=== PATIENT | female | born 1930 | race Caucasian/White ===

== ENCOUNTER 2016-07-13 21:18 | Inpatient (IN) | payer OTHER, MEDICARE ==
[~2016-07-13] VITALS: Ht 157.5 cm; Wt 39.0 kg
[~2016-07-13 21:18] MED LIST: ADVAIR 250-501 EACH INH; ALBUTEROL 3 ML3 ML INH; ASPIRIN CHILDRE81 MG PO; ATORVASTATIN CA40 MG PO; CALCIUM + D 6001 TAB PO; DILTIAZEM HCL240 MG PO; HYDRODIURIL 2525 MG PO; LEVOFLOXACIN500 MG PO; POTASSIUM CHLO10 ME1 PO; PREDNISONE5 MG PO; PRINIVIL 5MG5 MG PO; PROAIR HFA0.09 MG/Ac PO; SPIRIVA 18 MCG18 MCG INH
--- NOTE | 2016-07-13 21:30 | NUR ---
PT BIBA FROM HOME WITH C/O OF INCREASING DIFFICULTY BREATHING. PT HAS A HX OF COPD AND USES 3L NORMALLY. PT HAD A SAT OF 84% UPON EMS ARRIVAL, RECEIVED A DUO NEB AND 125MG SOLUMEDROL AND SATS UP TO 93-95% UPON ARRIVAL TO ER. PT NOTED WITH DIMINISHED LUNG SOUNDS. STATES THAT SHE HAS BEEN FIGHTING A SINUS INFECTION AND HEAD COLD FOR THE PAST 3 DAYS, AND SHE THINKS THAT THIS IS MAKING HER COPD WORSE. PT DENIES ANY CP. NSR NOTED ON CM.
--- NOTE | 2016-07-13 21:52 | ED DYSPNEA/ASTHMA COMPLAINT ---
History of Present Illness General Chief Complaint: Dyspnea (COPD, CHF, Other) Stated Complaint: "BIBA PER EMS SHORTNESS BREATH' Source: patient Exam Limitations: no limitations Vital Signs & Intake/Output Vital Signs & Intake/Output Vital Signs Date Time Temp Pulse Resp B/P Pulse O2 O2 Flow FiO2 Ox Delivery Rate 07/14 0310 Nasal 3.0L Cannula 07/14 0252 97.5 93 20 110/68 94 Nasal 3.0L Cannula 07/14 0223 95.7 91 18 133/58 99 Nasal 3.0L Cannula 07/13 2236 93 Nasal 3.0L Cannula 07/131 94 Nasal 3.0L Cannula 07/13 2124 99.1 112 22 176/96 95 Nasal 3.0L Cannula Allergies Coded Allergies: codeine (NAUSEA 07/13/16) oxycodone (From Percocet) (NAUSEA 07/13/16) propoxyphene (NAUSEA 07/13/16) Opioids - Morphine Analogues (Mild, NAUSEA 07/13/16) Reconcile Medications Albuterol Sulfate (Proventil) 2.5 MG/3 ML NEB 3 ML INH Q4P PRN SHORTNESS OF BREATH (Reported) Albuterol Sulfate (Proair Hfa) 0.09 MG/Actuation ASHLEY 1-2 PUFF PO Q4-6 PRN PRN BREATHING PROBLEMS (Reported) Aspirin (Children's Aspirin) 81 MG TAB.CHEW 1 TAB PO DAILY HEART HEALTH ( Reported) Atorvastatin Calcium (Lipitor) 40 MG TABLET 1 TAB PO DAILY CHOLESTEROL ( Reported) Calcium/Vitamin D (Calcium + D) 600 MG/200 IU TAB 1 TAB PO BID SUPPLEMENT ( Reported) Cefprozil 250 MG TABLET 1 TAB PO BID ANTIBIOTIC (Reported) DILTIAZEM HCL (Diltiazem 24HR ER) 240 MG CAP.ER.24H 1 CAP PO DAILY HEART ( Reported) Fluticasone/Salmeterol (Advair 250-50 Diskus) 250 MCG-50 MCG/DOSE BLST.W.DEV 1 PUF INH BID COPD (Reported) Hydrochlorothiazide (Hydrodiuril 25 MG Tab) 25 MG TABLET 1 TAB PO DAILY WATER PILL (Reported) Lisinopril (Prinivil) 5 MG TABLET 1 TAB PO DAILY BP (Reported) Meclizine HCl 12.5 MG TABLET 1 TAB PO TID PRN VERTIGO (Reported) Potassium Chloride 10 MEQ TABLET.ER 1 TAB PO DAILY SUPPLEMENT (Reported) Prednisone 5 MG TAB 1 TAB PO EOD STEROID (Reported) Tiotropium [place] (Spiriva) 18 MCG CAP.W.DEV 1 CAP INH DAILY BREATHING PROBLEMS (Reported) Triage Nurses Notes Reviewed? yes Onset: Gradual Duration: day(s): Timing: recent history Severity: moderate Activities at Onset: none Modifying Factors: Improves With: rest. Worsens With: movement. Associated Symptoms: cough, wheezing Patient currently breastfeeds: No HPI: 86 yo woman h/o 02 dependent copd, presents with cough, dyspnea, wheezing, weakness x 2-3 days, getting worse tonight. 911 called. They found her tachypneic, in mild respiratory distress. She received solumedrol 125mg iv x 1 via the medics. Upon arrival, pt breathless, tachypneic, but feels better with increased 02 requirement. Past History Travel History Traveled to [place] past 21 day No Medical History Any Pertinent Medical History? see below for history Neurological: NONE EENT: NONE Cardiovascular: aortic aneurysm, hypertension, hyperlipidemia Respiratory: COPD, pneumonia Gastrointestinal: NONE Hepatic: NONE Renal: NONE Musculoskeletal: NONE Psychiatric: NONE Endocrine: NONE Blood Disorders: NONE Cancer(s): NONE PROFESSIONAL SYSTEM ADMINISTRATOR/Reproductive: NONE Tetanus Vaccine: 11/03/13 Surgical History Surgical History: aaa repair Psychosocial History Who do you live with Daughter Services at Home [employer] What is your primary language [place] Tobacco Use: Never used Family History Hx Contributory? No Review of Systems Review of Systems Constitutional: Reports: no symptoms. EENTM: Reports: no symptoms. Respiratory: Reports: no symptoms. Cardiovascular: Reports: no symptoms. GI: Reports: no symptoms. Genitourinary: Reports: no symptoms. Musculoskeletal: Reports: no symptoms. Skin: Reports: no symptoms. Neurological/Psychological: Reports: no symptoms. Hematologic/Endocrine: Reports: no symptoms. Immunologic/Allergic: Reports: no symptoms. All Other Systems: Reviewed and Negative Physical Exam Physical Exam General Appearance: well developed/nourished, moderate distress Head: atraumatic, normal appearance Eyes: Bilateral: normal appearance. Ears, Nose, Throat: normal pharynx, normal ENT inspection Neck: normal inspection, supple, full range of motion Respiratory: wheezing, respiratory distress Cardiovascular: regular rate/rhythm Gastrointestinal: normal bowel sounds, soft, non-tender Extremities: normal inspection, normal capillary refill, normal range of motion, no edema Neurologic/Psych: no motor/sensory deficits, awake, alert, oriented x 3 Skin: intact, normal color, warm/dry Core Measures ACS in differential dx? No Severe Sepsis Present: No Septic Shock Present: No Progress Differential Diagnosis: costochondritis, CHF, COPD, musculoskeletal pain, pneumonia Plan of Care: Orders Procedure Date/time Status Regular Diet 07/14 B Active TROPONIN LEVEL 07/14 1200 Active EKG 07/14 1200 Active TROPONIN LEVEL 07/14 0600 Active CBC WITHOUT DIFFERENTIAL 07/14 0600 Active BASIC ELECTROLYTES PLUS BUN&CR 07/14 06 Active EKG 07/14 0600 Active Vital Signs 07/14 0300 Complete Teach/Educate 07/14 0300 Active Nutritional Intake, Monitor 07/14 0300 Active Isolation 07/14 0300 Active Patient Care Conference 07/14 0300 Active Activity/Ambulation 07/14 0300 Active URINALYSIS 07/14 0148 Active Code Status 07/14 0148 Active CULTURE,URINE 07/14 0147 Active STREP PNEUMO URINARY ANTIGEN 07/14 0147 Active LEGIONELLA URINARY ANTIGEN 07/14 0147 Active LOWER RESPIRATORY CULTURE 07/14 0147 Active BLOOD CULTURE 07/14 0147 Active RAPID VIRAL INFLUENZA A 07/14 0145 Active Pathway - chart 07/14 0012 Active House Staff 07/14 0012 Active Patient Data 07/14 0012 Active Code Status 07/14 0012 Complete TRC EVALUATION (GEN) 07/14 UNK Active ARTERIAL BLOOD GAS (GEN) 07/14 UNK Active Lab Add-on Test 07/14 UNK Active VTE Mechanical Prophylaxis 07/14 UNK Active ECHOCARDIOGRAM 07/14 UNK Active Patient Data 07/13 2358 Active B-TYPE NATRIURETIC PEP (BNP) 07/13 2238 Complete Saline Lock 07/13 2204 Active Misc Message 07/13 2204 Active ED Holding Orders 07/13 2204 Active Vital Signs 07/13 220 Active Code Status 07/13 220 Complete TROPONIN LEVEL 07/13 215 Complete LIPASE 07/13 2151 Complete HEPATIC FUNCTION PANEL 07/13 2151 Complete D-DIMER 07/13 2151 Complete CBC WITHOUT DIFFERENTIAL 07/13 2151 Complete BASIC METABOLIC PANEL 07/13 2151 Complete AMYLASE 07/13 2151 Complete EKG 07/13 2136 Active Intake & Output 07/13 2123 Active Current Medications Sig/Janusz Start time Last Medication Dose Stop Time Status Admin Azithromycin 500 MG 2300 01/03 2300 AC (Zithromax) Sodium Chloride 250 ML (Normal Saline 0.9%) Ceftriaxone Sodium 1,000 MG 07/14 2300 AC (Rocephin) Aspirin 81 MG DAILY 07/14 1000 AC (Aspirin) Atorvastatin Calcium 40 MG DAILY 07/14 1000 AC (Lipitor) Calcium/Vitamin D 500 MG DAILY 07/14 1000 AC (Oscal-D 500MG ([place]yter Shell)) Diltiazem HCl 240 MG DAILY 07/14 1000 AC (Cardizem CD) Enoxaparin Sodium 40 MG DAILY 07/14 1000 AC (Lovenox) Fluticasone 2 PUF BID 07/14 1000 AC Propionate (Flovent) Hydrochlorothiazide 25 MG DAILY 07/14 1000 AC (Hydrodiuril) Lisinopril 5 MG DAILY 07/14 1000 AC (Prinivil) Tiotropium [place] 1 PUF DAILY 07/14 1000 AC (Spiriva) Methylprednisolone 40 MG Q8 07/14 0600 AC (Solumedrol) Albuterol Sulfate 2 PUF Q4P PRN 07/14 0200 AC (Ventolin) Albuterol Sulfate 3 ML Q4P PRN 07/14 0030 AC (Proventil) Acetaminophen 325 MG Q6P PRN 07/14 0015 AC (Tylenol) Laboratory Tests 07/13/168: Anion Gap 8, Estimated GFR > 60, BUN/Creatinine Ratio 32.5 H, Glucose 129 H, Calcium 9.1, Total Bilirubin 0.6, Direct Bilirubin 0.4, AST 32, ALT 38, Alkaline Phosphatase 83, Troponin I < 0.01, [id number] Pept 409 H, Total Protein 6.5, Albumin 3.6, Amylase 64, Lipase 54, D-Dimer > 5250 H, CBC w Diff NO MAN DIFF REQ, RBC 4.18 L, MCV 88.7, MCH 30.3, RDW 13.4, MPV 6.7 L, Gran % 93.3 H, Lymphocytes % 2.0 L, Monocytes % 4.4, Eosinophils % 0.2, Basophils % 0.1, Absolute Granulocytes 10.2 H, Absolute Lymphocytes 0.2 L, Absolute Monocytes 0.5, Absolute Eosinophils 0, Absolute Basophils 0, PUBS MCHC 34.2 Microbiology 07/14 0147 URINE ROUT: Streptococcus pneumoniae Antigen (M - COLB 07/14 146 URINE ROUT: Legionella Antigen - COLB 07/14 146 URINE ROUT: Urine Culture - COLB 07/14 146 LOWER RESP: Respiratory Culture - COLB 07/14 146 LOWER RESP: Gram Stain - COLB 07/14 146 BLOOD: Blood Culture - COLB 07/14 146 BLOOD: Blood Culture - COLB Diagnostic Imaging: Viewed by Me: Radiology Read. Discussed w/RAD: Radiology Read. CXR Impression: no acute abnormality, no infiltrates, normal size heart, normal mediastinum Initial ED EKG: normal axis, normal intervals, normal p-waves, normal QRS complex, normal sinus rhythm Comments: PATIENT: FELICIA NAVARRO PRESENT AGE: 86 PATIENT ACCOUNT NO: [id number] : 32 LOCATION: [facility] ORDERING PHYSICIAN: BJ PRITCHETT MD SERVICE DATE: 07/13/16 EXAM TYPE: RAD - XRY-PORTABLE CHEST XRAY EXAMINATION: XR PORTABLE CHEST CLINICAL INFORMATION: Dyspnea. COMPARISON: Chest x-ray 05/07/2015. TECHNIQUE: Portable view of the chest was obtained. FINDINGS: Single AP view of the chest demonstrates pulmonary hyperinflation. No focal airspace consolidation is identified and there are no pleural effusions or pneumothoraces. Cardiac mediastinal contours are stable. Atherosclerotic calcifications are present within the aortic knob. Soft tissues appear unremarkable. No acute osseous abnormality. IMPRESSION: Radiographic findings suggestive of COPD. No focal airspace consolidation to suggest infection. DICTATED BY: LAZARO GILMAN MD DATE/TIME DICTATED:07/13/162301 VENEREAL DISEASE CONTROL HEAD:MARGARITO DATE/TIME TRANSCRIBED:07/13/162301 CONFIDENTIAL, DO NOT COPY WITHOUT APPROPRIATE AUTHORIZATION. <Electronically signed in Other Vendor System> SIGNED BY: LAZARO GILMAN MD 07/13/16 2311 Departure Departure Disposition: STILL A PATIENT Condition: Stable Clinical Impression Primary Impression: COPD exacerbation Secondary Impressions: Sepsis Referrals: Rickey ZAVALA MD (PCP/Family) Referred to [facility] as new patient No Departure Forms: Customer Survey General Discharge Information Admission Note Spoke With: NEO LORENZO MD Documentation of Exam: Documentation of any treatments & extenuating circumstances including Concerns Regarding Discharge (functional status, medication knowledge or non-compliance, living conditions, etc.) that warrant an admission rather than observation: pt with increasing dyspnea, with worsening 02 requirement, meets criteria for sepsis. Neesd iv steroids/abx/nebs. Critical Care Note Critical Care Note Critical Care Time: non-applicable
--- NOTE | 2016-07-13 22:04 | NUR ---
DR PRITCHETT TO [facility].
--- NOTE | 2016-07-13 22:13 | NUR ---
PORT CXR IN ROOM.
[2016-07-13] MEDS ORDERED: PRINIVIL5 M1 PO (22:39)
[2016-07-13] MEDS ORDERED: MECLIZINE HCL12.5 M1 PO (22:40)
[2016-07-13] MEDS ORDERED: CEFPROZIL PO (22:41)
[2016-07-13 22:45] LABS: ABSOLUTE BASOPHIL COUNT 0 /CUMM (0.0-0.2); ABSOLUTE EOSINOPHIL COUNT 0 /CUMM (0.0-0.7); ABSOLUTE GRANULOCYTE CT 10.2 /CUMM (1.4-6.5); ABSOLUTE LYMPH COUNT 0.2 /CUMM (1.2-3.4); ABSOLUTE MONOCYTE COUNT 0.5 /CUMM (0.10-0.60); BASOPHIL % 0.1 % (0.0-2.0); EOSINOPHIL % 0.2 % (0-5); HEMATOCRIT 37.1 % (37-47); MEAN CORPUSCULAR HGB 30.3 PG (27.0-31.0); MEAN CORPUSCULAR HGB CONC 34.2 G/DL (33.0-37.0); MEAN CORPUSCULAR VOLUME 88.7 FL (81.0-99.0); MEAN PLATELET VOLUME 6.7 FL (7.4-10.4); PLATELET COUNT 157 /CUMM (130-400); RBC DISTRIBUTION WIDTH 13.4 % (11.5-14.5); RED BLOOD CELL CT 4.18 /CUMM (4.20-5.40); WHITE BLOOD CELL COUNT 10.9 /CUMM (4.8-10.8)
[2016-07-13 22:47] LABS: GRANULOCYTE % 93.3 % (42.2-75.2)
--- NOTE | 2016-07-13 22:57 | NUR ---
ABX INFUSING (SEE MAR)
--- NOTE | 2016-07-13 23:11 | RADIOLOGY REPORT ---
EXAMINATION: XR PORTABLE CHEST CLINICAL INFORMATION: Dyspnea. COMPARISON: Chest x-ray 05/07/2015. TECHNIQUE: Portable view of the chest was obtained. FINDINGS: Single AP view of the chest demonstrates pulmonary hyperinflation. No focal airspace consolidation is identified and there are no pleural effusions or pneumothoraces. Cardiac mediastinal contours are stable. Atherosclerotic calcifications are present within the aortic knob. Soft tissues appear unremarkable. No acute osseous abnormality. IMPRESSION: Radiographic findings suggestive of COPD. No focal airspace consolidation to suggest infection.
--- NOTE | 2016-07-14 00:11 | History & Physical ---
KEITH VILLASENOR,[facility] 07/14/16 0011: General Information and HPI MD Statement: I have seen and personally examined FELICIA NAVARRO and documented this H&P. The patient is a 86 year old F who presented with a patient stated chief complaint of [shortness breath and productive cough]. Source of Information: patient, family, old records Exam Limitations: no limitations History of Present Illness: 86/F with PMH of COPD on 3 L, multiple pneumonia, AAA S/P repair and stenting, HTN, HLD, skin cancer S/P excision who presented to the ED with C/O cough productive of yellow sputum and worsening of baseline shortness of breath for the last 3 days. pt symptoms started as URI with sinus congestion started 3 days ago, even that she was seen by her PCP and prescribed cefprozil her baseline SOB became worse. pt stated that for the last 3 days she increased her oxygen to 4L and used nebulizers more frequent. pt reported cough productive of non-bloody yellow sputum and poor appetite. Pt added that laying flat triggers her SOB, but that is going for years. sick contact can't be excluded. pt denies fever, chills, CP, palpitation or LE edema. she denies recent travel or prolong setting. Pt did not change her oxygen nasal tube since the beginning of her URI. pt does not have any history of heart failure, she is not sure when was her last echo. She was given flu shot in April and a pneumonia shot last year. Allergies/Medications Allergies: Coded Allergies: codeine (NAUSEA 07/13/16) oxycodone (From Percocet) (NAUSEA 07/13/16) propoxyphene (NAUSEA 07/13/16) Opioids - Morphine Analogues (Mild, NAUSEA 07/13/16) Home Med list Albuterol Sulfate (Proventil) 2.5 MG/3 ML NEB 3 ML INH Q4P PRN SHORTNESS OF BREATH (Reported) Albuterol Sulfate (Proair Hfa) 0.09 MG/Actuation ASHLEY 1-2 PUFF PO Q4-6 PRN PRN BREATHING PROBLEMS (Reported) Aspirin (Children's Aspirin) 81 MG TAB.CHEW 1 TAB PO DAILY HEART HEALTH ( Reported) Atorvastatin Calcium (Lipitor) 40 MG TABLET 1 TAB PO DAILY CHOLESTEROL ( Reported) Calcium/Vitamin D (Calcium + D) 600 MG/200 IU TAB 1 TAB PO BID SUPPLEMENT ( Reported) Cefprozil 250 MG TABLET 1 TAB PO BID ANTIBIOTIC (Reported) DILTIAZEM HCL (Diltiazem 24HR ER) 240 MG CAP.ER.24H 1 CAP PO DAILY HEART ( Reported) Fluticasone/Salmeterol (Advair 250-50 Diskus) 250 MCG-50 MCG/DOSE BLST.W.DEV 1 PUF INH BID COPD (Reported) Hydrochlorothiazide (Hydrodiuril 25 MG Tab) 25 MG TABLET 1 TAB PO DAILY WATER PILL (Reported) Lisinopril (Prinivil) 5 MG TABLET 1 TAB PO DAILY BP (Reported) Meclizine HCl 12.5 MG TABLET 1 TAB PO TID PRN VERTIGO (Reported) Potassium Chloride 10 MEQ TABLET.ER 1 TAB PO DAILY SUPPLEMENT (Reported) Prednisone 5 MG TAB 1 TAB PO EOD STEROID (Reported) Tiotropium [place] (Spiriva) 18 MCG CAP.W.DEV 1 CAP INH DAILY BREATHING PROBLEMS (Reported) Past History Travel History Traveled to [place] past 21 day No Medical History Neurological: NONE EENT: NONE Cardiovascular: aortic aneurysm, hypertension, hyperlipidemia Respiratory: COPD, pneumonia Gastrointestinal: NONE Hepatic: NONE Renal: NONE Musculoskeletal: NONE Psychiatric: NONE Endocrine: NONE Blood Disorders: NONE Cancer(s): NONE MANUFACTURING TEAM LEADER/Reproductive: NONE Tetanus Vaccine: 11/03/13 Surgical History Surgical History: aaa repair Past Family/Social History Psychosocial History Services at Home: Oxygen Review of Systems Review of Systems Constitutional: Reports: see HPI, weakness. Denies: chills, diaphoresis, fever. EENTM: Reports: see HPI. Cardiovascular: Reports: orthopena. Denies: chest pain, palpitations, peripheral edema, syncope. Respiratory: Reports: cough, short of breath, sputum production. GI: Reports: constipation. Denies: abdominal pain, diarrhea, nausea, vomiting. Exam & Diagnostic Data Last 24 Hrs of Vital Signs/I&O Vital Signs Date Time Temp Pulse Resp B/P Pulse O2 O2 Flow FiO2 Ox Delivery Rate 07/14 0310 Nasal 3.0L Cannula 07/14 251 97.5 93 20 110/68 94 Nasal 3.0L Cannula 07/143 95.7 91 18 133/58 99 Nasal 3.0L Cannula 07/136 93 Nasal 3.0L Cannula 01/02 2211 94 Nasal 3.0L Cannula 07/13 2124 99.1 112 22 176/96 95 Nasal 3.0L Cannula Intake & Output 07/14 1600 07/14 0800 07/14 0000 Intake Total 120 Output Total 150 Balance -30 Intake, Oral 120 Output, Urine 150 Patient 39.009 kg Weight Physical Exam General Appearance Alert, Oriented X3, Cooperative, coughing all the time with yellow production Skin No Rashes HEENT Atraumatic, PERRLA, EOMI, Mucous Membr. moist/pink Neck No JVD Cardiovascular Regular Rate, Normal S1, Normal S2, No Murmurs Lungs decrease air entry b/l with some wheezing Abdomen Normal Bowel Sounds, Soft, No Tenderness Neurological Normal Speech Extremities No Clubbing, No Cyanosis, No Edema Last 24 Hrs of Labs/Sammy: Laboratory Tests 07/13/162237: Anion Gap 8, Estimated GFR > 60, BUN/Creatinine Ratio 32.5 H, Glucose 129 H, Calcium 9.1, Total Bilirubin 0.6, Direct Bilirubin 0.4, AST 32, ALT 38, Alkaline Phosphatase 83, Troponin I < 0.01, Atj-G-Iryzspvrnip Pept 409 H, Total Protein 6.5, Albumin 3.6, Amylase 64, Lipase 54, D-Dimer > 5250 H, CBC w Diff NO MAN DIFF REQ, RBC 4.18 L, MCV 88.7, MCH 30.3, RDW 13.4, MPV 6.7 L, Gran % 93.3 H, Lymphocytes % 2.0 L, Monocytes % 4.4, Eosinophils % 0.2, Basophils % 0.1, Absolute Granulocytes 10.2 H, Absolute Lymphocytes 0.2 L, Absolute Monocytes 0.5, Absolute Eosinophils 0, Absolute Basophils 0, PUBS MCHC 34.2 Microbiology 07/14 146 URINE ROUT: Streptococcus pneumoniae Antigen (M - COLB 07/14 146 URINE ROUT: Legionella Antigen - COLB 07/14 146 URINE ROUT: Urine Culture - COLB 07/14 146 LOWER RESP: Respiratory Culture - COLB 07/14 146 LOWER RESP: Gram Stain - COLB 07/14 146 BLOOD: Blood Culture - COLB 07/14 146 BLOOD: Blood Culture - COLB Assessment/Plan Assessment: #Acute hypoxic respiratory failure 2/2 CAP. Pt has COPD, she developed acute on chronic hypoxic respiratory failure. no symptom suggestive of CHF. * We'll place Pancultures * We'llCheck Urine strep and Legionella * We'llCheck rapid flu * We'll check ABG * we'll start IV ceftriaxone and azithromycin. * we'll Keep Oxygen saturations above 92% * nebulization PRN * we'll start Mucinex * we'll give IV methylprednisolone 40 mg every 6 hours * we'll consult pulm at .am #stable HTN,HLD, Hx of AAA. * we'll continue Cardizem and lisinopril. * We will hold HCTZ for now * we'll cont' other home meds. DVT prophylaxis subcutaneous Lovenox Regular diet DNR/DNI Mild pain pathway As Ranked By This Provider Problem List: 1. COPD 2. Pneumonia Core Measures/Miscellaneous Acute Coronary Syndrome ACS Diagnosis: No Cerebrovascular Accident CVA/TIA Diagnosis: No Congestive Heart Failure CHF Diagnosis: No Venous Thromboembolism VTE Risk Factors: Acute medical illness, Age > 40 VTE Prophylaxis Ordered Inpt: Mech & Pharm No Mech VTE prophylaxis d/t: No contraindications No VTE Pharm Prophylaxis d/t: No contraindications VTE Diagnosis: No VTE Type: NONE VTE Confirmed by (Test): NONE Severe Sepsis Severe Sepsis Present: No Septic Shock Septic Shock Present: No Miscellaneous Documentation Attending Case Discussed With: WILFRID HERNANDEZ MD Primary Care Physician: Rickey ZAVALA MD Patient sees these Specialists NEO LORENZO Level of Patient Care: General Medicine WILVER DRIVER 07/14/16 0123: Resident Review Statement Resident Statement: examined this patient, discussed with buyer intern Other Findings: Patient is 86-year-old female with past medical history of COPD on 3 L home oxygen, thoracic and aneurysm status post stenting, hypertension, hyperlipidemia , skin cancer status post grafting who presented to the ED with a chief complaint of worsening shortness of breath for the last 3 days. Patient states that she had a sinus infection about 3 days ago and since then has been having increasing shortness of breath along with cough and productive yellow sputum. She saw her PCP 3 days ago and was prescribed cefprozil. She has been taking antibiotic for the past 3 days with no improvement in her symptoms. She has been using her nebulizers more than usual. Has history of multiple pneumonias in the past. She has cough, low-grade fever, productive yellow sputum, decreased by mouth intake. Denies any chest pain, palpitations, nausea, vomiting, abdominal pain, night sweats, orthopnea, peripheral edema, diarrhea or constipation. No sick contact/recent travel. She she took a flu shot in April and a pneumonia shot was last year. Follows up with Dr. Leach as an outpatient. Denies any history of heart failure. Denies having an echocardiogram in a long time. Vitals at admission temperature 99.1, pulse 112, respiration 22, blood pressure 176/96, saturating 95% on 3 L nasal cannula. White count 10.9, H&H 12.7 /37.1, sodium 135, potassium 3.8, troponins serial 0.01, d-dimer 5250. EKG: Sinus tachycardia 110 bpm, LVH, nonspecific ST depressions in 2-3 Chest x-ray: Evidence of COPD. No focal airspace consolidation was seen. Chest CTA: No evidence of pulmonary embolism. Severe centrilobular emphysema. Small foci of tree-in-bud opacification in the posterior aspect of the right lobe with a few foci of peripheral pleural-based nodular consolidation likely early pneumonia. Pleural-based opacities questionable superimposed atelectasis? Parenchymal scarring. Physical exam: Gen.: Alert oriented 3, moderate distress, speaking in full sentences HEENT: Tenderness over sinuses, congested nasal mucosa, no JVD, PERRLA, EOMI Chest: Tachycardia, S1-S2 heard no murmurs rubs or gallops Respiratory: Fine basal crackles bilaterally, rhonchi heard in the right lung Abdomen: Surgery scar in midline from thoracic aorta stenting. Extremities: No edema, multiple ecchymosis noted over the arms and legs. Plan: 1. Acute hypoxic respiratory failure secondary to developing pneumonia s/p outpatient treatment failure. Initial differentials were pneumonia Vs COPD exacerbation Vs PE. Elevated d-dimer. CTA negative for pulmonary embolism. Evidence of developing pneumonia in the right lobe. --Patient to [facility] -Vitals every shift -Keep Oxygen saturations above 92% -Patient got 125 mg on a Medrol in ED. Continue Solu-Medrol at 40 mg every 8 hours -Received 1 dose of ceftriaxone and azithromycin in ED. Continue IV ceftriaxone and azithromycin for community acquired pneumonia pending cultures. -Pancultures -Check Urine strep and Legionella -Check rapid flu -We'll check ABG -TRC nebs [id number] -Continue home medications albuterol inhalation and Spiriva -Pulmonology consult with Dr. Leach in a.m. 2.History of leg swelling: No recent echocardiogram. No documented history of heart failure. -We will add proBNP to the labs -Check an echocardiogram -3 sets of troponin and EKG to rule out ACS 3. History of hypertension -Continue Cardizem and lisinopril. We will hold HCTZ for now can restart in the morning if blood pressure still elevated. Continue other home medications DVT prophylaxis subcutaneous Lovenox Regular diet DNR/DNI Mild pain pathway NEO LORENZO 07/14/16 0746: Attending MD Review Statement Attending Statement Attending MD Statement: examined this patient, discuss w/resident/PA/WEBSPHERE ARCHITECT, agreed w/resident/PA/WEBSPHERE ARCHITECT, reviewed EMR data (avail), reviewed images, amended to note Attending Assessment/Plan: CC: worsening of shortness of breath PMHx: COPD on 3 L NC, thoracic aortic aneurysm status post stent, HTN, HLD Patient comes in for worsening shortness of breath since 3-4 days, associated with yellow sputum production and cough. She had sinus infection earlier. She was treated by PCP. By mouth antibiotics without much improvement. She denies any fever, chills, chest pain, nausea, vomiting, diarrhea, abdominal pain. She has markedly decreased appetite because she gets short of breath while eating. Vaccination status is up-to-date. Vitals: T max 99.1, pulse 112 at presentation, respiratory rate 22, BP in acceptable range, saturating 94% on 3 L. On examination: A O 3, obvious short of breath, accessory muscles of respiration in use, cachectic. No JVD, no lymphadenopathy, neck supple. CVS: S1-S2, RRR. RS: Markedly decreased air entry bilaterally. Abdomen: Soft, and T, M.D., bowel sounds present. No pedal edema. No focal neurological deficits. Labs: WBC 10.9, with significant granulocytosis. Bicarbonate 37, BUN 26, proBNP 409, d-dimer >5250 Imaging chest x-ray: Radiographic findings of COPD without any airspace consolidation. CTA chest : No evidence of pulmonary embolism. Severe centrilobular emphysema. Small foci of tree-in-bud opacification in the posterior aspect of the right lower lobe with a few foci of peripheral pleural-based nodular consolidation, likely due to early pneumonia. The pleural-based opacities may be due to superimposed atelectasis or pleural parenchymal scarring. A and P #1 acute on chronic hypoxic respiratory failure : Secondary to COPD exacerbation , early developing pneumonia. ProBNP is low, no obvious JVD or pedal edema to suspect heart failure. Continue IV ceftriaxone and azithromycin, when necessary and scheduled nebulization, O2 by nasal cannula, Mucinex, IV methylprednisolone 40 mg every 6 hours, incentive spirometry. Consult Grady Leach MD patient known to him. Often 2-D echo for pulmonary pressures. Check CLOtest if not done. Obtain sputum culture. #2 chronic stable problems: HLD, HTN, history of aortic aneurysm: Continue home medications. #3 DVT prophylaxis with Lovenox, adequate pain control. Patient may benefit from nutrition consult.
--- NOTE | 2016-07-14 00:14 | NUR ---
PATIENT TO CT AT THIS TIME BY STRETCHER. DREA CRUZ.
--- NOTE | 2016-07-14 00:59 | CT SCAN REPORT ---
EXAMINATION: CT ANGIOGRAM OF THE CHEST WITH AND WITHOUT CONTRAST (CT PULMONARY ANGIOGRAM FOR PE) CLINICAL INFORMATION: dyspnea, +dimer COMPARISON: Chest radiograph dated 07/23/2016. TECHNIQUE: Prior to contrast administration, noncontrast localization images were obtained. Subsequently, multidetector volumetric imaging was performed from the thoracic inlet to below the diaphragms following the administration of 74 mL Optiray 350 intravenous contrast. No contrast reaction reported Sagittal, coronal, and MIP oblique sagittal reformatted images were obtained on the CT workstation, uploaded to PACS, and reviewed. Total exam dose-length product 151.6 mGy-cm FINDINGS: QUALITY OF STUDY/CONTRAST BOLUS: Satisfactory. PULMONARY ARTERIES: No central or segmental pulmonary emboli. Enlargement of the pulmonary arteries is seen bilaterally, consistent with pulmonary arterial hypertension. THORACIC AORTA: Calcific atherosclerosis is present within the thoracic aorta and its branch vessels. No stenoses or aneurysmal dilatation. There is a common origin of the right brachiocephalic artery and left common carotid. LUNG: There is severe diffuse centrilobular emphysema within both lungs. Multiple nodular opacities are present within the dependent aspect of the right lower lobe along the pleural surface. A few tree-in-bud opacities are also present within this region, raising the possibility of an early infectious process or follicular bronchiolitis. There is mild bronchiectasis in the lower lobes. No suspicious pulmonary nodules are identified. PLEURA: No pleural effusion or pneumothorax. MEDIASTINUM: Normal heart size. No pericardial effusion. No hilar or mediastinal lymphadenopathy. Calcific atherosclerosis is present within the coronary arteries. Esophagus is unremarkable. CHEST WALL/AXILLA: No axillary or internal mammary lymphadenopathy. OSSEOUS STRUCTURES: There is moderate multilevel degenerative disc disease in the thoracic spine. No acute fracture or malalignment identified. UPPER ABDOMEN: Subcentimeter foci of hypoattenuation in the right hepatic lobe are too small to characterize and likely correspond to simple hepatic cyst. No suspicious hepatic lesions. IMPRESSION: 1. No evidence of pulmonary embolism 2. Severe centrilobular emphysema. 3. Small foci of tree-in-bud opacification in the posterior aspect of the right lower lobe with a few foci of peripheral pleural-based nodular consolidation, likely due to early pneumonia. The pleural-based opacities may be due to superimposed atelectasis or pleural parenchymal scarring. VTE: negative
--- NOTE | 2016-07-14 01:42 | NUR ---
RESP PAGED FOR TX ORDERS IN [facility].
--- NOTE | 2016-07-14 01:49 | NUR ---
PT ADMIT TO [facility] RM [id number]
--- NOTE | 2016-07-14 02:25 | NUR ---
YELENA WATERS CALLED REPORT TO YELENA BHAKTA.
[2016-07-14 02:52] VITALS: BP 110/68
--- NOTE | 2016-07-14 07:47 | Admission Certification ---
Admission Certification Certification Statement - As attending physician, I certify that at the time of - admission, based on clinical presentation, severity of - symptoms, need for further diagnostic testing and - therapeutic interventions, and risk of adverse outcomes - without in-hospital treatment, in my clinical assessment, - this patient requires an acute hospital stay for a minimum - of two nights or longer. I have also considered psychsocial - factors such as support system, advanced age, financial - issues, cognitive issues, and failed out-patient treatments, - past re-admission history, safety of patient, and lack of - compliance as applicable. Specific rationale supporting this admission is: COPD exacerbation, with pneumonia
[2016-07-14 08:21] VITALS: BP 100/62
--- NOTE | 2016-07-14 08:25 | NUR ---
LATE ENTRY- 0400 PT ARRIVED VIA STRETCHER TO ROOM. ORIENTED TOO ROOM, STAFF, AND CALL CARRERA. ALERT AND ORIENTED X 3. LUNGS DIMINISHED THROUGHOUT, 3 L NC. SKIN CDI, SLIGHT BLANCHABLE REDNESS TO BUTOCKS.NO C/O PAIN OR DISCOMFORT. IV SOLUMEDROL ADMINSITRED ORDERED. WILL CONTINUE TO MONITOR.
--- NOTE | 2016-07-14 08:38 | PN- Housestaff ---
Subjective Follow-up For: Acute exacerbation of COPD Subjective: Patient recently moved upstairs from the emergency department after admission. She is still complaining of shortness of breath on minimal exertion. Review of Systems Constitutional: Reports: see HPI. EENTM: Reports: no symptoms. Cardiovascular: Reports: no symptoms. Respiratory: Reports: cough, short of breath, wheezing. Gastrointestinal: Reports: no symptoms. Genitourinary: Reports: no symptoms. Musculoskeletal: Reports: no symptoms. Skin: Reports: no symptoms. Neurological/Psychological: Reports: no symptoms. Objective Last 24 Hrs of Vital Signs/I&O Vital Signs Date Time Temp Pulse Resp B/P Pulse O2 O2 Flow FiO2 Ox Delivery Rate 07/14 1642 97.5 89 18 116/68 95 Room Air 07/14 1600 Nasal 4.5L Cannula 07/14 1446 Nasal 4.5L Cannula 07/14 0939 70 120/77 07/14 0821 97.9 90 20 100/62 96 Nasal 4.0L Cannula 07/14 0800 Nasal 3.0L Cannula 07/14 0310 Nasal 3.0L Cannula 07/14 0252 97.5 93 20 110/68 94 Nasal 3.0L Cannula 07/14 0223 95.7 91 18 133/58 99 Nasal 3.0L Cannula 07/13 2236 93 Nasal 3.0L Cannula 07/13 2211 94 Nasal 3.0L Cannula 07/13 2125 99.1 112 22 176/96 95 Nasal 3.0L Cannula Intake & Output 07/14 1600 07/14 0800 07/14 0000 Intake Total 1380 120 Output Total 200 150 Balance 1180 -30 Intake, IV 0 Intake, Oral 1380 120 Number 1 Bowel Movements Output, Urine 200 150 Patient 39.009 kg Weight Physical Exam General Appearance: Alert, Oriented X3, Moderate Distress, in mod resp distress HEENT: Mucous Membr. moist/pink Neck: Supple, No JVD Lymphatic: Cervical nl Cardiovascular: Regular Rate, Normal S1, Normal S2 Lungs: b/l wheezes and crepts heard Abdomen: Normal Bowel Sounds, Soft, No Tenderness Neurological: grossly intact Extremities: No Clubbing, No Cyanosis, No Edema Vascular: Normal Pulses, Pulses Symmetrical Current Medications: Current Medications Sig/Janusz Start time Last Medication Dose Route Stop Time Status Admin Acetaminophen 325 MG Q6P PRN 07/14 0015 AC PO Albuterol Sulfate 3 ML TID 07/14 1600 AC 07/14 INH 1427 Albuterol Sulfate 2 PUF Q4P PRN 07/14 0200 AC INH Albuterol Sulfate 3 ML Q4P PRN 07/14 0030 DC INH Albuterol Sulfate 3 ML ONCE ONE 07/13 2215 DC 07/13 INH 07/13 2216 2236 Aspirin 81 MG DAILY 07/14 1000 AC 07/14 PO 0939 Atorvastatin Calcium 40 MG DAILY 07/14 1000 AC 07/14 PO 0939 Azithromycin 500 MG 2300 07/14 2300 AC Sodium Chloride 250 ML IV Azithromycin 500 MG ONCE ONE 07/13 2215 DC 07/13 Sodium Chloride 250 ML IV 07/13 2314 2317 Calcium/Vitamin D 500 MG DAILY 07/14 1000 AC 07/14 PO 0939 Ceftazidime 1,000 MG Q12 07/14 2200 AC IV Ceftriaxone Sodium 1,000 MG 2300 07/14 2300 CAN IV Ceftriaxone Sodium 0 .STK-MED ONE 07/13 2248 DC .ROUTE Ceftriaxone Sodium 1,000 MG ONCE ONE 07/13 2215 DC 07/13 IV 07/13 2216 2257 Diltiazem HCl 240 MG DAILY 07/14 1000 AC 07/14 PO 0939 Enoxaparin Sodium 40 MG DAILY 07/14 1000 AC 07/14 SC 0940 Fluticasone 2 PUF BID 07/14 1000 AC 07/14 Propionate INH 0941 Guaifenesin 600 MG Q12 07/14 2200 AC PO Hydrochlorothiazide 25 MG DAILY 07/14 1000 AC 07/14 PO 0939 Ipratropium [place] 2.5 ML ONCE ONE 07/13 2215 DC 07/13 INH 07/13 2216 2236 Lisinopril 5 MG DAILY 07/14 1000 AC 07/14 PO 0939 Methylprednisolone 40 MG Q12 07/14 2200 AC IV 07/14 2300 Methylprednisolone 40 MG Q8 07/14 0600 DC 07/14 IV 1431 Methylprednisolone 125 MG ONCE ONE 07/13 2215 DC IV 07/13 2216 Oxymetazoline HCl 2 SPRAY BID PRN 07/14 1615 AC OSCAR Prednisone 40 MG DAILY 07/15 1000 AC PO 07/27 0959 Tiotropium [place] 1 PUF DAILY 07/14 1000 AC 03 INH 0940 Vancomycin HCl 1,000 MG ONCE ONE 07/14 1815 DC Sodium Chloride 250 ML IV 07/14 1914 Last 24 Hrs of Lab/Sammy Results Last 24 Hrs of Labs/Mics: Laboratory Tests 07/14/16 1433: pH 7.44, pCO2 48 H, pO2 82, HCO3 32 H, ABG O2 Sat (Measured) 95.0 L, P-50 ( Temp Corrected) N, Carboxyhemoglobin 0 L, O2 Concentration % 4LPM, O2 Delivery Method NC, Phlebotomy Draw Site RIGHT BRACHIAL 07/14/16 0840: Anion Gap 12, Estimated GFR > 60, BUN/Creatinine Ratio 35.7 H, Troponin I < 0.01, CBC w Diff MAN DIFF ORDERED, RBC 4.45, MCV 88.9, MCH 29.7, RDW 13.6, MPV 7.3 L, Gran % 95.7 H, Lymphocytes % 2.5 L, Monocytes % 1.7, Eosinophils % 0.1 , Basophils % 0 L, Absolute Granulocytes 8.2 H, Segmented Neutrophils 93 H, Band Neutrophils 5, Absolute Lymphocytes 0.2 L, Lymphocytes 1 L, Monocytes 1 L, Absolute Monocytes 0.1 L, Absolute Eosinophils 0, Absolute Basophils 0, Platelet Estimate VERIFIED BY SMEAR, Normocytic RBCs VERIFIED, Normochromic RBCs VERIFIED, PUBS MCHC 33.4 07/13/16 2238: Anion Gap 8, Estimated GFR > 60, BUN/Creatinine Ratio 32.5 H, Glucose 129 H, Calcium 9.1, Total Bilirubin 0.6, Direct Bilirubin 0.4, AST 32, ALT 38, Alkaline Phosphatase 83, Troponin I < 0.01, [id number] Pept 409 H, Total Protein 6.5, Albumin 3.6, Amylase 64, Lipase 54, D-Dimer > 5250 H, CBC w Diff NO MAN DIFF REQ, RBC 4.18 L, MCV 88.7, MCH 30.3, RDW 13.4, MPV 6.7 L, Gran % 93.3 H, Lymphocytes % 2.0 L, Monocytes % 4.4, Eosinophils % 0.2, Basophils % 0.1, Absolute Granulocytes 10.2 H, Absolute Lymphocytes 0.2 L, Absolute Monocytes 0.5, Absolute Eosinophils 0, Absolute Basophils 0, PUBS MCHC 34.2 Microbiology 07/14 181 UPPER RESP: Surveillance Culture - ORD 07/14 724 URINE ROUT: Streptococcus pneumoniae Antigen (M - COMP 07/14 724 URINE ROUT: Legionella Antigen - RES 07/14 0725 URINE ROUT: Urine Culture - RES 07/14 146 LOWER RESP: Respiratory Culture - COLB 07/14 146 LOWER RESP: Gram Stain - COLB 07/14 146 BLOOD: Blood Culture - COLB 07/14 146 BLOOD: Blood Culture - COLB Assessment/Plan Assessment: 86 yo F with pmh of COPD on home oxygen 3L/min, abdominal aortic aneurysm status post stenting, hypertension, hyperlipidemia, skin cancer status post resection, currently admitted and being managed in general medical floor for acute exacerbation of COPD. #Acute hypoxic respiratory failure, secondary to acute exacerbation of COPD His clinical symptoms are suggestive of acute exacerbation of COPD. Labs do not show increased white count, suggesting less possibility of pneumonia at this point of time. CT scan however, shows small area of opacification in right lower lobe, which could mean developing pneumonia. -Patient has been started on IV steroids, TRC nebulizations and bronchodilators -IV antibiotics has been started, keeping in mind that the opacification in right lower lobe could be developing pneumonia, and her history of pneumonia with acute exacerbation of COPD. -ABG shows respiratory alkalosis -Patient has been started on oxymetazoline for nasal and sinus congestion symptoms -Pulmonary consultation has been placed with Grady Leach MD. Awaiting his input. -Awaiting sputum culture and blood cultures. -We will follow-up on rapid flu, urine strep and Legionella antigen #Hypertension -We'll continue home medications with lisinopril and Cardizem, holding hydrochlorothiazide right now, but can continue if patient is hypertensive #Hyperlipidemia -We'll continue home medication of atorvastatin #Peripheral vascular disease #Lovenox for DVT prophylaxis #Diet: Regular diet #CODE STATUS: DNR/DNI Problem List: 1. COPD exacerbation 2. Hypertension 3. Hyperlipidemia 4. PVD (peripheral vascular disease) Pain Ratin Pain Location: - Pain Goal: Remain pain free Pain Plan: prn Tomorrow's Labs & Rationales: none
[2016-07-14 09:25] LABS: ABSOLUTE BASOPHIL COUNT 0 /CUMM (0.0-0.2); ABSOLUTE EOSINOPHIL COUNT 0 /CUMM (0.0-0.7); ABSOLUTE GRANULOCYTE CT 8.2 /CUMM (1.4-6.5); ABSOLUTE LYMPH COUNT 0.2 /CUMM (1.2-3.4); ABSOLUTE MONOCYTE COUNT 0.1 /CUMM (0.10-0.60); BASOPHIL % 0 % (0.0-2.0); EOSINOPHIL % 0.1 % (0-5); GRANULOCYTE % 95.7 % (42.2-75.2); HEMATOCRIT 39.6 % (37-47); MEAN CORPUSCULAR HGB 29.7 PG (27.0-31.0); MEAN CORPUSCULAR HGB CONC 33.4 G/DL (33.0-37.0); MEAN CORPUSCULAR VOLUME 88.9 FL (81.0-99.0); MEAN PLATELET VOLUME 7.3 FL (7.4-10.4); PLATELET COUNT 149 /CUMM (130-400); RBC DISTRIBUTION WIDTH 13.6 % (11.5-14.5); RED BLOOD CELL CT 4.45 /CUMM (4.20-5.40); WHITE BLOOD CELL COUNT 8.6 /CUMM (4.8-10.8)
--- NOTE | 2016-07-14 12:48 | Cons- Pulmonary ---
General Information and HPI Consulting Request Date of Consult: 07/14/16 Requested By: med team History of Present Illness: 86/F with PMH of COPD on 3 L, multiple pneumonia, AAA S/P repair and stenting, HTN, HLD, skin cancer S/P excision who presented to the ED with C/O cough productive of yellow sputum and worsening of baseline shortness of breath for the last 3 days. pt symptoms started as URI with sinus congestion started 3 days ago, even that she was seen by her PCP and prescribed cefprozil her baseline SOB became worse. pt stated that for the last 3 days she increased her oxygen to 4L and used nebulizers more frequent. pt reported cough productive of non-bloody yellow sputum and poor appetite. Pt added that laying flat triggers her SOB, but that is going for years. sick contact can't be excluded. pt denies fever, chills, CP, palpitation or LE edema. she denies recent travel or prolong setting. Pt did not change her oxygen nasal tube since the beginning of her URI. pt does not have any history of heart failure, she is not sure when was her last echo. She was given flu shot in April and a pneumonia shot last year. Has had previous staph and klebsiell pna Constitutional: Reports: see HPI, weakness. Denies: chills, diaphoresis, fever. EENTM: Reports: see HPI. Cardiovascular: Reports: orthopena. Denies: chest pain, palpitations, peripheral edema, syncope. Respiratory: Reports: cough, short of breath, sputum production. GI: Reports: constipation. Denies: abdominal pain, diarrhea, nausea, vomiting. Allergies/Medications Allergies: Coded Allergies: codeine (NAUSEA 07/13/16) oxycodone (From Percocet) (NAUSEA 07/13/16) propoxyphene (NAUSEA 07/13/16) Opioids - Morphine Analogues (Mild, NAUSEA 07/13/16) Home Med List: Albuterol Sulfate (Proventil) 2.5 MG/3 ML NEB 3 ML INH Q4P PRN SHORTNESS OF BREATH (Reported) Albuterol Sulfate (Proair Hfa) 0.09 MG/Actuation ASHLEY 1-2 PUFF PO Q4-6 PRN PRN BREATHING PROBLEMS (Reported) Aspirin (Children's Aspirin) 81 MG TAB.CHEW 1 TAB PO DAILY HEART HEALTH ( Reported) Atorvastatin Calcium (Lipitor) 40 MG TABLET 1 TAB PO DAILY CHOLESTEROL ( Reported) Calcium/Vitamin D (Calcium + D) 600 MG/200 IU TAB 1 TAB PO BID SUPPLEMENT ( Reported) Cefprozil 250 MG TABLET 1 TAB PO BID ANTIBIOTIC (Reported) DILTIAZEM HCL (Diltiazem 24HR ER) 240 MG CAP.ER.24H 1 CAP PO DAILY HEART ( Reported) Fluticasone/Salmeterol (Advair 250-50 Diskus) 250 MCG-50 MCG/DOSE BLST.W.DEV 1 PUF INH BID COPD (Reported) Hydrochlorothiazide (Hydrodiuril 25 MG Tab) 25 MG TABLET 1 TAB PO DAILY WATER PILL (Reported) Lisinopril (Prinivil) 5 MG TABLET 1 TAB PO DAILY BP (Reported) Meclizine HCl 12.5 MG TABLET 1 TAB PO TID PRN VERTIGO (Reported) Potassium Chloride 10 MEQ TABLET.ER 1 TAB PO DAILY SUPPLEMENT (Reported) Prednisone 5 MG TAB 1 TAB PO EOD STEROID (Reported) Tiotropium [place] (Spiriva) 18 MCG CAP.W.DEV 1 CAP INH DAILY BREATHING PROBLEMS (Reported) Review of Systems Review of Systems Constitutional: Reports: see HPI. Past History Travel History Traveled to [place] past 21 day No Medical History Neurological: NONE EENT: NONE Cardiovascular: aortic aneurysm, hypertension, hyperlipidemia Respiratory: COPD, pneumonia Gastrointestinal: NONE Hepatic: NONE Renal: NONE Musculoskeletal: NONE Psychiatric: NONE Endocrine: NONE Blood Disorders: NONE Cancer(s): NONE DIRECTORY COMPILER/Reproductive: NONE Surgical History Surgical History: aaa repair Psychosocial History Services at Home: Oxygen Smoking Status: Former Smoker Exam & Diagnostic Data Last 24 Hrs of Vital Signs/I&O Vital Signs Date Time Temp Pulse Resp B/P Pulse O2 O2 Flow FiO2 Ox Delivery Rate 07/14 0939 70 120/77 07/14 0821 97.9 90 20 100/62 96 Nasal 4.0L Cannula 07/14 0800 Nasal 3.0L Cannula 07/14 0310 Nasal 3.0L Cannula 07/14 0252 97.5 93 20 110/68 94 Nasal 3.0L Cannula 07/14 0223 95.7 91 18 133/58 99 Nasal 3.0L Cannula 07/13 2235 93 Nasal 3.0L Cannula 07/13 2210 94 Nasal 3.0L Cannula 07/13 2124 99.1 112 22 176/96 95 Nasal 3.0L Cannula Intake & Output 07/14 1600 07/14 0800 07/14 0000 Intake Total 120 Output Total 200 150 Balance -200 -30 Intake, Oral 120 Number 1 Bowel Movements Output, Urine 200 150 Patient 86 lb Weight Last 48 Hrs of Labs/Sammy: Laboratory Tests 07/14/16 0840: Anion Gap 12, Estimated GFR > 60, BUN/Creatinine Ratio 35.7 H, Troponin I < 0.01, CBC w Diff MAN DIFF ORDERED, RBC 4.45, MCV 88.9, MCH 29.7, RDW 13.6, MPV 7.3 L, Gran % 95.7 H, Lymphocytes % 2.5 L, Monocytes % 1.7, Eosinophils % 0.1 , Basophils % 0 L, Absolute Granulocytes 8.2 H, Segmented Neutrophils 93 H, Band Neutrophils 5, Absolute Lymphocytes 0.2 L, Lymphocytes 1 L, Monocytes 1 L, Absolute Monocytes 0.1 L, Absolute Eosinophils 0, Absolute Basophils 0, Platelet Estimate VERIFIED BY SMEAR, Normocytic RBCs VERIFIED, Normochromic RBCs VERIFIED, PUBS MCHC 33.4 07/13/16 2238: Anion Gap 8, Estimated GFR > 60, BUN/Creatinine Ratio 32.5 H, Glucose 129 H, Calcium 9.1, Total Bilirubin 0.6, Direct Bilirubin 0.4, AST 32, ALT 38, Alkaline Phosphatase 83, Troponin I < 0.01, [id number]-[id number] Pept 409 H, Total Protein 6.5, Albumin 3.6, Amylase 64, Lipase 54, D-Dimer > 5250 H, CBC w Diff NO MAN DIFF REQ, RBC 4.18 L, MCV 88.7, MCH 30.3, RDW 13.4, MPV 6.7 L, Gran % 93.3 H, Lymphocytes % 2.0 L, Monocytes % 4.4, Eosinophils % 0.2, Basophils % 0.1, Absolute Granulocytes 10.2 H, Absolute Lymphocytes 0.2 L, Absolute Monocytes 0.5, Absolute Eosinophils 0, Absolute Basophils 0, PUBS MCHC 34.2 Microbiology 07/14 07 URINE ROUT: Streptococcus pneumoniae Antigen (M - COMP Assessment/Plan Impression/Plan: Physical Exam General Appearance Alert, Oriented X3, Cooperative, coughing all the time with yellow production Skin No Rashes HEENT Atraumatic, PERRLA, EOMI, Mucous Membr. moist/pink Neck No JVD Cardiovascular Regular Rate, Normal S1, Normal S2, No Murmurs Lungs decrease air entry b/l with some wheezing Abdomen Normal Bowel Sounds, Soft, No Tenderness Neurological Normal Speech Extremities No Clubbing, No Cyanosis, No Edema SIGNIFICANT DATA CT scan of the chest showed severe diffuse emphysema with nodular opacities within the dependent aspect of the right lower lobe with a few tree-in-bud opacification in the right lower lobe suggestive of pneumonia. There is no pulmonary embolism. Previous cultures had grown Escherichia coli strep pneumo Klebsiella. Patient also had Pseudomonas before. IMPRESSION This is a lady with very end-stage COPD on chronic oxygen therapy, previous aortic aneurysm repair, hypertension, hyperlipidemia, severe peripheral vascular disease, worsening overall performance status, now with * Acute on chronic hypoxemic respiratory failure related to acute COPD exacerbation * Pneumonia, CAP in a patient who is on chronic steroids * Severe end-stage lung disease * Severe peripheral vascular disease * Patient also has chronic hypercarbia as a baseline bicarbonate is elevated * No venous thromboembolism. RECOMMENDATION * Change her antibiotics to ceftazidime and azithromycin * Given one dose of vancomycin * Continue all outpatient medications * Continue Solu-Medrol changed the dose to 40 mg every 12 hours and switch her to by mouth prednisone tomorrow * Sputum culture * Await blood cultures * Swab the MRSA * If her sputum culture does not show any staph aureus will discontinue vancomycin soon Patient is DNR/DNI prognosis is guarded Consult Acknowledgment - Thank you for your consult request.
[2016-07-14 16:42] VITALS: BP 116/68
[2016-07-14 23:30] VITALS: BP 144/84
--- NOTE | 2016-07-15 06:21 | PN- Housestaff ---
JULEE VILLASENOR,NILSA 07/15/16 0621: Subjective Follow-up For: Acute exacerbation of COPD Complaints: SOB Subjective: I examined the patient today. She was lying on the bed, alert, oriented, in moderate distress due to shortness of breath. Compared to yesterday she has decreased shortness of breath at rest, but still has shortness of breath on minimal exertion, for example using a commode. Vitals stable overnight. No active issues overnight. Review of Systems Constitutional: Reports: no symptoms. EENTM: Reports: no symptoms. Cardiovascular: Reports: no symptoms. Respiratory: Reports: see HPI, cough, short of breath, wheezing. Gastrointestinal: Reports: no symptoms. Genitourinary: Reports: no symptoms. Musculoskeletal: Reports: no symptoms. Skin: Reports: no symptoms. Neurological/Psychological: Reports: no symptoms. Hematologic/Endocrine: Reports: no symptoms. Objective Last 24 Hrs of Vital Signs/I&O Vital Signs Date Time Temp Pulse Resp B/P Pulse O2 O2 Flow FiO2 Ox Delivery Rate 07/15 1700 94 Nasal 5.0L Cannula 07/15 1649 97.7 88 17 116/84 89 Nasal 4.0L Cannula 07/15 0927 80 138/80 07/15 0801 94 Nasal 4.5L Cannula 07/15 0800 94 Nasal 5.0L Cannula 07/15 0800 97.5 80 20 138/80 96 Nasal 3.0L Cannula 07/15 0000 Nasal 5.0L Cannula 07/14 2330 97.4 94 20 144/84 91 Nasal Cannula 07/14 2123 90 Nasal 5.0L Cannula Intake & Output 07/15 1600 07/15 0800 07/15 0000 Intake Total 600 960 540 Output Total 600 250 250 Balance 0 710 290 Intake, IV 600 300 Intake, Oral 600 360 240 Number 1 Bowel Movements Output, Urine 600 250 250 Physical Exam General Appearance: Alert, Oriented X3, Cooperative, Moderate Distress Skin: No Rashes, No Breakdown, No Significant Lesion HEENT: Atraumatic, PERRLA, EOMI, Mucous Membr. moist/pink Neck: Supple, No JVD Lymphatic: Cervical nl Cardiovascular: Regular Rate, Normal S1, Normal S2 Lungs: b/l crepts, and wheeze present Abdomen: Normal Bowel Sounds, Soft, No Tenderness Neurological: grossly intact Extremities: No Clubbing, No Cyanosis, No Edema, Normal Pulses, No Tenderness/ Swelling Vascular: Normal Pulses, Pulses Symmetrical Current Medications: Current Medications Sig/Janusz Start time Last Medication Dose Route Stop Time Status Admin Acetaminophen 325 MG Q6P PRN 07/14 0015 AC PO Albuterol Sulfate 3 ML TID 07/14 1600 AC 07/15 INH 1209 Albuterol Sulfate 2 PUF Q4P PRN 07/14 0200 AC INH Aspirin 81 MG DAILY 07/14 1000 AC 07/15 PO 0927 Atorvastatin Calcium 40 MG DAILY 07/14 1000 AC 07/15 PO 0926 Azithromycin 500 MG 2300 07/14 2300 AC 07/14 Sodium Chloride 250 ML IV 07/15 2300 2218 Calcium/Vitamin D 500 MG DAILY 07/14 1000 AC 07/15 PO 0927 Ceftazidime 1,000 MG Q12 07/14 2200 AC 07/15 IV 0921 Diltiazem HCl 240 MG DAILY 07/14 1000 AC 07/15 PO 0926 Enoxaparin Sodium 40 MG DAILY 07/14 1000 AC 07/15 SC 0922 Fluticasone 2 PUF BID 07/14 1000 AC 07/15 Propionate INH 0919 Guaifenesin 600 MG Q12 07/14 2200 AC 07/15 PO 0927 Hydrochlorothiazide 25 MG DAILY 07/14 1000 AC 07/15 PO 0927 Lisinopril 5 MG DAILY 07/14 1000 AC 07/15 PO 0927 Methylprednisolone 40 MG Q12 07/14 2200 DC 07/14 IV 07/14 2300 2218 Oxymetazoline HCl 2 SPRAY BID PRN 07/14 1615 AC 07/15 OSCAR 1541 Patient Medication 1 ED .STK-MED ONE 07/15 1406 DC Teaching ED 07/15 1407 Prednisone 40 MG DAILY 07/15 1000 AC 07/15 PO 07/27 0959 0928 Tiotropium [place] 1 PUF DAILY 07/14 1000 AC 07/15 INH 0920 Vancomycin HCl 500 MG ONCE ONE 07/15 1600 DC 07/15 Sodium Chloride 250 ML IV 07/15 1659 1542 Vancomycin HCl 1,000 MG ONCE ONE 07/15 1145 CAN Sodium Chloride 250 ML IV 07/15 1244 Vancomycin HCl 1,000 MG ONCE ONE 07/14 1815 DC 07/14 Sodium Chloride 250 ML IV 07/14 1914 2016 Last 24 Hrs of Lab/Sammy Results Last 24 Hrs of Labs/Mics: Microbiology 07/14 1999 UPPER RESP: Surveillance Culture - RECD Assessment/Plan Assessment: 86 yo F with pmh of COPD on home oxygen 3L/min, abdominal aortic aneurysm status post stenting, hypertension, hyperlipidemia, skin cancer status post resection, currently admitted and being managed in general medical floor for acute exacerbation of COPD. #Acute hypoxic respiratory failure, secondary to acute exacerbation of COPD His clinical symptoms are suggestive of acute exacerbation of COPD. Labs do not show increased white count, suggesting less possibility of pneumonia at this point of time. CT scan however, shows small area of opacification in right lower lobe, which could mean developing pneumonia. -Patient has been started on IV steroids, TRC nebulizations and bronchodilators -IV antibiotics has been started, keeping in mind that the opacification in right lower lobe could be developing pneumonia, and her history of pneumonia with acute exacerbation of COPD. we'll continue IV ceftazidime and azithromycin. Second dose of vancomycin was given according to pulmonary consult today. -ABG showed respiratory alkalosis on admission -Patient has been on oxymetazoline for nasal and sinus congestion symptoms -Pulmonary consultation per Grady Leach MD appreciated. -Awaiting sputum culture and blood cultures. -We will follow-up on rapid flu, urine strep and Legionella antigen>>Negative. -Continue PT consult #Hypertension -We'll continue home medications with lisinopril and Cardizem, holding hydrochlorothiazide right now, but can continue if patient is hypertensive #Hyperlipidemia -We'll continue home medication of atorvastatin #Peripheral vascular disease #Lovenox for DVT prophylaxis #Diet: Regular diet #CODE STATUS: DNR/DNI Problem List: 1. COPD exacerbation 2. Pneumonia 3. Hyperlipidemia 4. Hypertension 5. PVD (peripheral vascular disease) Pain Ratin Pain Location: - Pain Goal: Remain pain free Pain Plan: prn Tomorrow's Labs & Rationales: none WILFRID HERNANDEZ MD 07/15/16 1335: Attending MD Review Statement Attending Statement Attending MD Statement: examined this patient, discuss w/resident/PA/OPTICAL STORE MANAGER, agreed w/resident/PA/OPTICAL STORE MANAGER, reviewed EMR data (avail) Attending Assessment/Plan: 86F PMH end-stage COPD on 3L home oxygen, PVD, HTN admitted with shortness of breath, wheezing, dyspnea on exertion, and dry cough. Requiring 5L NC to maintain oxygen, desaturates otherwise. Initially with thick yellow sputum but has been dry since then. Reports sinus congestion that is improving. Afebrile, stable vitals. Has a history of recurrent pneumonia with cultures growing E.coli, Klebsiella, and Pseudomonas in the past. Today patient reports feeling better. She is able to eat without dyspnea (was unable to do so yesterday) and is speaking in complete sentences. She is still dyspneic on minimal exertion but this is also improving. Still requiring 5L NC. On exam, patient appears comfortable, normal cardiac exam, bilateral wheezing with coarse breath sounds in lung bases, no LE edema, mental status intact, neuro exam grossly normal. 1. Acute on chronic hypoxemic respiratory failure 2. RLL Community acquired pneumonia 3. Acute exacerbation of end-stage COPD 4. Severe PVD Plan - Continue as inpatient - Continue Prednisone 40mg daily - Continue Ceftazidime and Azithromycin - Given single dose Vancomycin - Follow cultures - Continue Flovent, Albuterol, Atrovent - Continue Afrin and Mucinex for congestion - Follow pulmonary recommendations - PT evaluation - Continue home medications - DVT PPx
[2016-07-15 08:00] VITALS: BP 138/80
--- NOTE | 2016-07-15 09:23 | PN- Student ---
Subjective Subjective: Patient was sited un an upright position without any notable signs of distress but with slight breathing difficulty. Patient went SOB while speaking. No mucus has been expectorated throughout the day. Patient did not had lunch because of lack of appetite and mentioned concern with her actual medical status. Objective Objective: Vital Signs Date Time Temp Pulse Resp B/P Pulse O2 O2 Flow FiO2 Ox Delivery Rate 07/15 0927 80 138/80 07/15 0801 94 Nasal 4.5L Cannula 07/15 08 94 Nasal 5.0L Cannula 07/15 08 97.5 80 20 138/80 96 Nasal 3.0L Cannula 07/15 0000 Nasal 5.0L Cannula 07/14 2330 97.4 94 20 144/84 91 Nasal Cannula 07/14 2123 90 Nasal 5.0L Cannula 07/14 1642 97.5 89 18 116/68 95 Room Air 07/14 1600 Nasal 4.5L Cannula 07/14 1446 Nasal 4.5L Cannula Intake & Output 07/15 1600 07/15 0800 07/15 0000 Intake Total 960 540 Output Total 250 250 Balance 710 290 Intake, IV 600 300 Intake, Oral 360 240 Number 1 Bowel Movements Output, Urine 250 250 Physical Examination: H: None E: PERRLA E: None N: None T: None Neck: Respiratory accesory muscle overuse noted. Mouth: Patient presented purse lips on expiration. Slight central cyanosis below the tounge and normal bucal mucosa. Lungs: Upon auscultation expiratory crackles were heard throughout the lungs. CV: Normal S1, S2 without any murmurs. Upper Extremities: No clubbing of the fingers and no peripheral cyanosis. Lower Extremities: Normal appareance without any edema. Neurological: Normal speech. Current Medications Sig/Janusz Start time Last Medication Dose Route Stop Time Status Admin Acetaminophen 325 MG Q6P PRN 07/14 0015 AC PO Albuterol Sulfate 3 ML TID 07/14 1600 AC 07/15 INH 1209 Albuterol Sulfate 2 PUF Q4P PRN 07/14 0200 AC INH Albuterol Sulfate 3 ML Q4P PRN 07/14 0030 DC INH Aspirin 81 MG DAILY 07/14 1000 AC 07/15 PO 0927 Atorvastatin Calcium 40 MG DAILY 07/14 1000 AC 07/15 PO 0926 Azithromycin 500 MG 2300 07/14 2300 AC 07/14 Sodium Chloride 250 ML IV 07/15 2300 2218 Calcium/Vitamin D 500 MG DAILY 07/14 1000 AC 07/15 PO 0927 Ceftazidime 1,000 MG Q12 07/14 2200 AC 07/15 IV 0921 Ceftriaxone Sodium 1,000 MG 2300 07/14 2300 CAN IV Diltiazem HCl 240 MG DAILY 07/14 1000 AC 07/15 PO 0926 Enoxaparin Sodium 40 MG DAILY 07/14 1000 AC 07/15 SC 0922 Fluticasone 2 PUF BID 07/14 1000 AC 07/15 Propionate INH 0919 Guaifenesin 600 MG Q12 07/14 2200 AC 07/15 PO 0927 Hydrochlorothiazide 25 MG DAILY 07/14 1000 AC 07/15 PO 0927 Lisinopril 5 MG DAILY 07/14 1000 AC 07/15 PO 0927 Methylprednisolone 40 MG Q12 07/14 2200 DC 07/14 IV 07/14 2300 2218 Methylprednisolone 40 MG Q8 07/14 0600 DC 07/14 IV 1431 Oxymetazoline HCl 2 SPRAY BID PRN 07/14 1615 AC OSCAR Prednisone 40 MG DAILY 07/15 1000 AC 07/15 PO 07/27 0959 0928 Tiotropium [place] 1 PUF DAILY 07/14 1000 AC 07/15 INH 0920 Vancomycin HCl 500 MG ONCE ONE 07/15 1600 AC Sodium Chloride 250 ML IV 07/15 1659 Vancomycin HCl 1,000 MG ONCE ONE 07/15 1145 CAN Sodium Chloride 250 ML IV 07/15 1244 Vancomycin HCl 1,000 MG ONCE ONE 07/14 1815 DC 07/14 Sodium Chloride 250 ML IV 07/14 Results Results: Laboratory Tests 07/14 1433 Blood Gas pH (7.35 - 7.45 PH) 7.44 pCO2 (35 - 45 TORR) 48 H pO2 (80 - 100 TORR) 82 HCO3 (21 - 28 MEQ/L) 32 H ABG O2 Sat (Measured) (>96.0 %) 95.0 L P-50 (Temp Corrected) N Carboxyhemoglobin (1.5 - 5.0 %) 0 L O2 Concentration % 4LPM O2 Delivery Method NC Miscellaneous Phlebotomy Draw Site RIGHT BRACHIAL Microbiology Date/Time Procedure - Status Source Growth 07/14 1999 Surveillance Culture - RECD UPPER RESP Assessment/Plan Assessment: Patient is a 86y/o F with a PMHx of COPD (Emphysema), HTN, DM and Hyperlipidemia. The patient came in due to a COPD exacerbation. Vital signs are within normal values and the patient is afebrile. The patient has a Hx of recurrent COPD exacerbations and pneumonia. Currently she complains of SOB and pulmonary congestion and seems to be more emotionally distressed than in the morning visit. She expiriences SOB when speaks for more than 5 minutes. Patient Impression: The patient is currently in mild respiratory distress despite the fact of being treated for COPD exacerbation with indicated medications and oxygen supplementation (5 mL/min). Problem List: 1) Pulmonary Congestion 2) SOB 3) Dry cough 4) Community-acquired pneumonia Plan: - Continue as an Inpatient - Mucinex and Afrin for congestion - Prednisolone (30 mg PO) - Cefepime (2g IV q8Hrs) - Continue Oxygen supplementation at 5 mL/min
--- NOTE | 2016-07-15 09:53 | PN- Pulmonary ---
Subjective HPI/Critical Care Issues: Doing better but still has a sig dry cough Fatigue improved ROS neg Objective Current Medications: Current Medications Sig/Janusz Start time Last Medication Dose Route Stop Time Status Admin Acetaminophen 325 MG Q6P PRN 07/14 0015 AC PO Albuterol Sulfate 3 ML TID 07/14 1600 AC 07/15 INH 0759 Albuterol Sulfate 2 PUF Q4P PRN 07/14 0200 AC INH Albuterol Sulfate 3 ML Q4P PRN 07/14 0030 DC INH Aspirin 81 MG DAILY 07/14 1000 AC 07/15 PO 0927 Atorvastatin Calcium 40 MG DAILY 07/14 1000 AC 07/15 PO 0926 Azithromycin 500 MG 2300 07/14 2300 AC 07/14 Sodium Chloride 250 ML IV 2218 Calcium/Vitamin D 500 MG DAILY 07/14 1000 AC 07/15 PO 0927 Ceftazidime 1,000 MG Q12 07/14 2200 AC 07/15 IV 0921 Ceftriaxone Sodium 1,000 MG 2300 07/14 2300 CAN IV Diltiazem HCl 240 MG DAILY 07/14 1000 AC 07/15 PO 0926 Enoxaparin Sodium 40 MG DAILY 07/14 1000 AC 07/15 SC 0922 Fluticasone 2 PUF BID 07/14 1000 AC 07/15 Propionate INH 0919 Guaifenesin 600 MG Q12 07/14 2200 AC 07/15 PO 0927 Hydrochlorothiazide 25 MG DAILY 07/14 1000 AC 07/15 PO 0927 Lisinopril 5 MG DAILY 07/14 1000 AC 07/15 PO 0927 Methylprednisolone 40 MG Q12 07/14 2200 DC 07/14 IV 07/14 2300 2218 Methylprednisolone 40 MG Q8 07/14 0600 DC 07/14 IV 1431 Oxymetazoline HCl 2 SPRAY BID PRN 07/14 1615 AC OSCAR Prednisone 40 MG DAILY 07/15 1000 AC 07/15 PO 07/27 0959 0928 Tiotropium [place] 1 PUF DAILY 07/14 1000 AC 07/15 INH 0920 Vancomycin HCl 1,000 MG ONCE ONE 07/14 1815 DC 07/14 Sodium Chloride 250 ML IV 07/14 1913 2016 Vital Signs & I&O Last 24 Hrs of Vitals and I&O: Vital Signs Date Time Temp Pulse Resp B/P Pulse O2 O2 Flow FiO2 Ox Delivery Rate 07/15 0927 80 138/80 07/15 0801 94 Nasal 4.5L Cannula 07/15 08 97.5 80 20 138/80 96 Nasal 3.0L Cannula 07/15 0000 Nasal 5.0L Cannula 07/14 2330 97.4 94 20 144/84 91 Nasal Cannula 07/14 2123 90 Nasal 5.0L Cannula 07/14 1642 97.5 89 18 116/68 95 Room Air 07/14 1600 Nasal 4.5L Cannula 07/14 1446 Nasal 4.5L Cannula Intake & Output 07/15 1600 07/15 0800 07/15 0000 Intake Total 960 540 Output Total 250 250 Balance 710 290 Intake, IV 600 300 Intake, Oral 360 240 Number 1 Bowel Movements Output, Urine 250 250 Laboratory Tests 07/14 07/14 1433 1200 Blood Gas pH (7.35 - 7.45 PH) 7.44 pCO2 (35 - 45 TORR) 48 H pO2 (80 - 100 TORR) 82 HCO3 (21 - 28 MEQ/L) 32 H ABG O2 Sat (Measured) (>96.0 %) 95.0 L P-50 (Temp Corrected) N Carboxyhemoglobin (1.5 - 5.0 %) 0 L O2 Concentration % 4LPM O2 Delivery Method NC Chemistry Troponin I Cancelled Miscellaneous Phlebotomy Draw Site RIGHT BRACHIAL 07/14 07/13 0840 2238 Chemistry Sodium (137 - 145 mmol/L) 139 135 L Potassium (3.5 - 5.1 mmol/L) 4.3 3.8 Chloride (98 - 107 mmol/L) 92 L 91 L Carbon Dioxide (22 - 30 mmol/L) 36 H 37 H Anion Gap (5 - 16) 12 8 BUN (7 - 17 mg/dL) 25 H 26 H Creatinine (0.5 - 1.0 mg/dL) 0.7 0.8 Estimated GFR (>60 ml/min) > 60 > 60 BUN/Creatinine Ratio (7 - 25 %) 35.7 H 32.5 H Glucose (65 - 99 mg/dL) 129 H Calcium (8.4 - 10.2 mg/dL) 9.1 Total Bilirubin (0.2 - 1.3 mg/dL) 0.6 Direct Bilirubin (< 0.4 mg/dL) 0.4 AST (14 - 36 U/L) 32 ALT (9 - 52 U/L) 38 Alkaline Phosphatase (<127 U/L) 83 Troponin I (< 0.11 ng/ml) < 0.01 < 0.01 [id number] Pept (<125 pg/mL) 409 H Total Protein (6.3 - 8.2 g/dL) 6.5 Albumin (3.5 - 5.0 g/dL) 3.6 Amylase (30 - 110 U/L) 64 Lipase (23 - 300 U/L) 54 Coagulation D-Dimer (70 - 232 ng/ml) > 5250 H Hematology CBC w Diff MAN DIFF ORDERED NO MAN DIFF REQ WBC (4.8 - 10.8 /CUMM) 8.6 10.9 H RBC (4.20 - 5.40 /CUMM) 4.45 4.18 L Hgb (12.0 - 16.0 G/DL) 13.2 12.7 Hct (37 - 47 %) 39.6 37.1 MCV (81.0 - 99.0 FL) 88.9 88.7 MCH (27.0 - 31.0 PG) 29.7 30.3 RDW (11.5 - 14.5 %) 13.6 13.4 Plt Count (130 - 400 /CUMM) 149 157 MPV (7.4 - 10.4 FL) 7.3 L 6.7 L Gran % (42.2 - 75.2 %) 95.7 H 93.3 H Lymphocytes % (20.5 - 51.1 %) 2.5 L 2.0 L Monocytes % (1.7 - 9.3 %) 1.7 4.4 Eosinophils % (0 - 5 %) 0.1 0.2 Basophils % (0.0 - 2.0 %) 0 L 0.1 Absolute Granulocytes (1.4 - 6.5 /CUMM) 8.2 H 10.2 H Segmented Neutrophils (42.2 - 75.2 %) 93 H Band Neutrophils (0.0 - 5.0 %) 5 Absolute Lymphocytes (1.2 - 3.4 /CUMM) 0.2 L 0.2 L Lymphocytes (20.5 - 51.1 %) 1 L Monocytes (1.7 - 9.3 %) 1 L Absolute Monocytes (0.10 - 0.60 /CUMM) 0.1 L 0.5 Absolute Eosinophils (0.0 - 0.7 /CUMM) 0 0 Absolute Basophils (0.0 - 0.2 /CUMM) 0 0 Platelet Estimate (ADEQUATE) VERIFIED BY SMEAR Normocytic RBCs VERIFIED Normochromic RBCs VERIFIED PUBS MCHC (33.0 - 37.0 G/DL) 33.4 34.2 Microbiology Date/Time Procedure - Status Source Growth 07/14 1999 Surveillance Culture - RECD UPPER RESP 07/14 724 Streptococcus pneumoniae Antigen (M - COMP URINE ROUT 07/14 724 Legionella Antigen - RES URINE ROUT 07/14 724 Urine Culture - RES URINE ROUT 07/14 146 Respiratory Culture - COLB LOWER RESP 07/14 146 Gram Stain - COLB LOWER RESP 07/14 146 Blood Culture - CAN BLOOD Cancelled: SPECIMENS NEVER RECEIVED 07/14 146 Blood Culture - CAN BLOOD Cancelled: SPECIMENS NEVER RECEIVED Impression/Plan Impression/Plan Impression/Plan: Physical Exam General Appearance Alert, Oriented X3, Cooperative, coughing all the time with yellow production Skin No Rashes HEENT Atraumatic, PERRLA, EOMI, Mucous Membr. moist/pink Neck No JVD Cardiovascular Regular Rate, Normal S1, Normal S2, No Murmurs Lungs decrease air entry b/l with some wheezing Abdomen Normal Bowel Sounds, Soft, No Tenderness Neurological Normal Speech Extremities No Clubbing, No Cyanosis, No Edema SIGNIFICANT DATA CT scan of the chest showed severe diffuse emphysema with nodular opacities within the dependent aspect of the right lower lobe with a few tree-in-bud opacification in the right lower lobe suggestive of pneumonia. There is no pulmonary embolism. Previous cultures had grown Escherichia coli strep pneumo Klebsiella. Patient also had Pseudomonas before. ABG reviewed and co2 is 48 IMPRESSION This is a lady with very end-stage COPD on chronic oxygen therapy, previous aortic aneurysm repair, hypertension, hyperlipidemia, severe peripheral vascular disease, worsening overall performance status, now with * Acute on chronic hypoxemic and hypercarbic respiratory failure related to acute COPD exacerbation * Pneumonia, CAP in a patient who is on chronic steroids * Severe end-stage lung disease * Severe peripheral vascular disease * Patient also has chronic hypercarbia as a baseline bicarbonate is elevated * No venous thromboembolism. RECOMMENDATION * Change her antibiotics to ceftazidime and azithromycin Azthro can be dcd after today) * One more dose of vancomycin today * Continue all outpatient medications * Prednisone 40 mg qd * Sputum culture * Await blood cultures Patient is DNR/DNI prognosis is guarded
--- NOTE | 2016-07-15 14:06 | NUR ---
Physical Therapy: Attempted to see pt this afternoon for treatment. Pt appears SOB just laying in bed. Pt politely refusing participation at this time due to fatigue and SOB. Pt is now on 5.0L O2. Will follow up this week, as pt is appropriate. Thank you.
--- NOTE | 2016-07-15 16:22 | Discharge Summary ---
Visit Information Visit Dates Admission Date: 07/14/16 Discharge Date: 07/17/16 Hospital Course Course Attending Physician: WILFRID HERNANDEZ MD Primary Care Physician: Rickey ZAVALA MD Hospital Course: Patient is 86-year-old female with past medical history of COPD on 3 L home oxygen, thoracic and aneurysm status post stenting, hypertension, hyperlipidemia , skin cancer status post grafting who presented to the ED with a chief complaint of worsening shortness of breath for 3 days. Vitals at admission temperature 99.1, pulse 112, respiration 22, blood pressure 176/96, saturating 95% on 3 L nasal cannula. White count 10.9, H&H 12.7 /37.1, sodium 135, potassium 3.8, troponins serial 0.01, d-dimer 5250. EKG: Sinus tachycardia 110 bpm, LVH, nonspecific ST depressions in 2-3 Chest x-ray: Evidence of COPD. No focal airspace consolidation was seen. Chest CTA: No evidence of pulmonary embolism. Severe centrilobular emphysema. Small foci of tree-in-bud opacification in the posterior aspect of the right lobe with a few foci of peripheral pleural-based nodular consolidation likely early pneumonia. Pleural-based opacities questionable superimposed atelectasis? Parenchymal scarring. Hospital course 1. Acute hypoxic respiratory failure secondary to developing pneumonia s/p outpatient treatment failure: She was initially started on ceftriaxone and azithromycin. Pulmonary consult was obtained recommended to change antibiotic to ceftaz and azithromycin as She grew Pseudomonas in the past. She also received 2 days of vancomycin from the day of admission. Urinary antigen for Legionella and strep pneumo was negative. Patient remained afebrile during the hospital stay. change to by mouth antibiotic to complete a total course of 7 days. 2. Acute exacerbation of COPD: Patient was placed on IV Solu-Medrol which was later transitioned to by mouth steroids. she was continued on TRC nebulizes. Plan was to discharge to pulmonary rehabilitation which can help in improving exercise capacity, dyspnea on quality of life end-stage COPD patients. she is on 5 mg of prednisone daily at baseline which she would continue after the taper. Recommended to follow-up with Dr. Leach 3. History of hypertension: Patient was continued on Cardizem and lisinopril.heart hydrodissected initially was held which was later restarted once blood pressure becomes stable. 4. Hyperlipidemia: Was continued on atorvastatin DVT prophylaxis with Lovenox Regular diet DNR/DNI Allergies: Coded Allergies: codeine (NAUSEA 07/13/16) oxycodone (From Percocet) (NAUSEA 07/13/16) propoxyphene (NAUSEA 07/13/16) Opioids - Morphine Analogues (Mild, NAUSEA 07/13/16) Pertinent Lab Results: Laboratory Tests 07/14 1433 Blood Gas pH (7.35 - 7.45 PH) 7.44 pCO2 (35 - 45 TORR) 48 H pO2 (80 - 100 TORR) 82 HCO3 (21 - 28 MEQ/L) 32 H ABG O2 Sat (Measured) (>96.0 %) 95.0 L P-50 (Temp Corrected) N Carboxyhemoglobin (1.5 - 5.0 %) 0 L O2 Concentration % 4LPM O2 Delivery Method NC Miscellaneous Phlebotomy Draw Site RIGHT BRACHIAL Disposition Summary Disposition Principal Diagnosis: 1. Acute hypoxic respiratory failure 2. Acute exacerbation of COPD Additional Diagnosis: 1. Hypertension 2. Hyperlipidemia Discharge Disposition: SNF Discharge Instructions General Discharge Information Code Status: Do Not Resucitate/Intubat Patient's Diet: Regular diet Patient's Activity: As tolerated Follow-Up Instructions/Appts: 1. Follow-up with Dr. Leach after discharge 2. Follow-up with primary care physician in a week upon discharge 3. Continue follow-up with COPD clinic Medications at Discharge Discharge Medications: Stop taking the following medications: Cefprozil (Cefprozil) 250 MG TABLET ORAL TWICE DAILY Qty = 20 Continue taking these medications: Fluticasone/Salmeterol (Advair 250-50 Diskus) 250 MCG-50 MCG/DOSE BLST.W.DEV 1 Puff Inhale through mouth TWICE DAILY Comments: PER PT MED LIST Albuterol Sulfate (Proventil) 2.5 MG/3 ML NEB 3 Milliliters Inhale through mouth EVERY 4 HOURS NEEDED as needed for SHORTNESS OF BREATH Comments: Last Taken: 08/22/14 Time: 1800PM Aspirin (Children's Aspirin) 81 MG TAB.CHEW 1 Tablet ORAL DAILY Comments: Last Taken: 08/23/14 Time: 0830AM Atorvastatin Calcium (Lipitor) 40 MG TABLET 1 Tablet ORAL DAILY Comments: Last Taken: 08/23/14 Time: 0830AM Calcium/Vitamin D (Calcium + D) 600 MG/200 IU TAB 1 Tablet ORAL TWICE DAILY Comments: Last Taken: 08/23/14 Time: 0830AM DILTIAZEM HCL (Diltiazem 24HR ER) 240 MG CAP.ER.24H 1 Capsule ORAL DAILY Qty = 90 Comments: Last Taken: 08/23/14 Time: 0830AM Hydrochlorothiazide (Hydrodiuril 25 MG Tab) 25 MG TABLET 1 Tablet ORAL DAILY Qty = 90 Comments: Last Taken: 08/23/14 Time: 0830AM Potassium Chloride (Potassium Chloride) 10 MEQ TABLET.ER 1 Tablet ORAL DAILY Qty = 90 Comments: Last Taken: 08/23/14 Time: 0830AM Prednisone (Prednisone) 5 MG TAB 1 Tablet ORAL Every other day Qty = 100 Comments: Last Taken: 08/23/14 Time: 0830AM Tiotropium [place] (Spiriva) 18 MCG CAP.W.DEV 1 Capsule Inhale through mouth DAILY Qty = 90 Comments: Last Taken: 08/23/14 Time: 0830AM Albuterol Sulfate (Proair Hfa) 0.09 MG/Actuation ASHLEY 1-2 PUFF ORAL EVERY 4-6 HOURS NEEDED as needed for BREATHING PROBLEMS Qty = 17 Comments: NOT GIVEN IN HOSPITAL Lisinopril (Prinivil) 5 MG TABLET 1 Tablet ORAL DAILY Comments: PER PT VERBALLY CONFIRMED Meclizine HCl (Meclizine HCl) 12.5 MG TABLET 1 Tablet ORAL THREE TIMES DAILY as needed for VERTIGO Comments: PER PT MED LIST Start taking the following new medications: Moxifloxacin HCl (Avelox) 400 MG TABLET 1 Tablet ORAL DAILY Days = 5 No Refills Prednisone (Prednisone) 10 MG TABLET 0 ORAL DAILY Days = 10 No Refills Instructions: On Take 12/26- 01/25 40 mg 02/25- 03/28 30 MG 04/27-05/28 20 MG 06/27- 10 MG 5 mg daily from the on Copies To: Rickey ZAVALA MD
[2016-07-15 16:49] VITALS: BP 116/84
[2016-07-16 00:39] VITALS: BP 128/88
--- NOTE | 2016-07-16 06:29 | PN- Housestaff ---
JULEE VILLASENOR,NILSA 07/16/16 0629: Subjective Follow-up For: Acute exacerbation of COPD Complaints: no complaints Subjective: I followed up and examined the patient today. See is reclining comfortably in her bed, as additional oxygen being delivered via nasal cannula at 5 L/m, and does not seem to be in respiratory distress compared to yesterday. She doesn't have any active complaints. Vitals have been stable, no overnight issues. Review of Systems Constitutional: Reports: no symptoms. EENTM: Reports: no symptoms. Cardiovascular: Reports: no symptoms. Respiratory: Reports: cough, short of breath, wheezing. Gastrointestinal: Reports: no symptoms. Genitourinary: Reports: no symptoms. Musculoskeletal: Reports: no symptoms. Skin: Reports: no symptoms. Neurological/Psychological: Reports: no symptoms. Hematologic/Endocrine: Reports: no symptoms. Objective Last 24 Hrs of Vital Signs/I&O Vital Signs Date Time Temp Pulse Resp B/P Pulse O2 O2 Flow FiO2 Ox Delivery Rate 07/16 0822 98.0 78 18 130/80 95 Nasal 5.0L Cannula 07/16 0756 95 Nasal 5.0L Cannula 07/16 0039 97.7 85 18 128/88 97 Nasal 5.0L Cannula 07/16 0000 Nasal 5.0L Cannula 07/15 2015 94 Nasal 5.0L Cannula 07/15 1700 94 Nasal 5.0L Cannula 07/15 1649 97.7 88 17 116/84 89 Nasal 4.0L Cannula 07/15 1600 94 Nasal 5.0L Cannula 07/15 0927 80 138/80 Intake & Output 07/16 1600 07/16 0800 07/16 0000 Intake Total 240 1140 Output Total 450 200 Balance -210 940 Intake, IV 540 Intake, Oral 240 600 Output, Urine 450 200 Patient 39.009 kg Weight Physical Exam General Appearance: Alert, Oriented X3, Cooperative, Mild Distress, mild resp distress Other Physical Findings: Physical examnination: General: [thin buit] patient, in mild resp distress Head: Normocephalic, atraumatic Eyes: Pupils normal in size, regular, reacting to light and accommodation, EOM normal Ears: B/l normal on inspection Nose: Normal on inspection Throat/mouth: [Moist]mucosa Neck: Supple, full range of motion, no thyromegaly Heart: Regular rate, [regular] rhythm Lung: B/l crepts present, but less wheezing compared to yesterday. Occassional grossly audible wheeze heard Abd: Soft, non-tender, no distention appreciated Back: Normal range of motion Extremities: Normal knee exam bilaterally, [no] pedal edema, Distal neurovascular intact Neurologic: Alert, oriented x3, Cranial exam grossly intact, Speech is clear and coherent Skin: Warm and dry Psychiatric: Calm, cooperative, coherant, Current Medications: Current Medications Sig/Janusz Start time Last Medication Dose Route Stop Time Status Admin Acetaminophen 325 MG Q6P PRN 07/14 0015 AC PO Albuterol Sulfate 3 ML TID 07/14 1600 AC 07/16 INH 0752 Albuterol Sulfate 2 PUF Q4P PRN 07/14 0200 AC INH Aspirin 81 MG DAILY 07/14 1000 AC 07/15 PO 0927 Atorvastatin Calcium 40 MG DAILY 07/14 1000 AC 07/15 PO 0926 Azithromycin 500 MG 2300 07/14 2300 DC 07/15 Sodium Chloride 250 ML IV 07/15 2300 2226 Calcium/Vitamin D 500 MG DAILY 07/14 1000 AC 07/15 PO 0927 Ceftazidime 1,000 MG Q12 07/14 2200 AC 07/15 IV 2108 Diltiazem HCl 240 MG DAILY 07/14 1000 AC 07/15 PO 0926 Enoxaparin Sodium 40 MG DAILY 07/14 1000 AC 07/15 SC 0922 Fluticasone 2 PUF BID 07/14 1000 AC 07/15 Propionate INH 2108 Guaifenesin 600 MG Q12 07/14 2200 AC 07/15 PO 2108 Hydrochlorothiazide 25 MG DAILY 07/14 1000 AC 07/15 PO 0927 Lisinopril 5 MG DAILY 07/14 1000 AC 07/15 PO 0927 Oxymetazoline HCl 2 SPRAY BID PRN 07/14 1615 AC 07/15 OSCAR 1541 Patient Medication 1 ED .STK-MED ONE 07/15 1406 DC Teaching ED 07/15 1407 Prednisone 40 MG DAILY 07/15 1000 AC 07/15 PO 07/27 0959 0928 Tiotropium [place] 1 PUF DAILY 07/14 1000 AC 07/15 INH 0920 Vancomycin HCl 500 MG ONCE ONE 07/15 1600 DC 07/15 Sodium Chloride 250 ML IV 07/15 1659 1542 Vancomycin HCl 1,000 MG ONCE ONE 07/15 1145 CAN Sodium Chloride 250 ML IV 07/15 1244 Assessment/Plan Assessment: 86 yo F with pmh of COPD on home oxygen 3L/min, abdominal aortic aneurysm status post stenting, hypertension, hyperlipidemia, skin cancer status post resection, currently admitted and being managed in general medical floor for acute exacerbation of COPD. #Acute hypoxic respiratory failure, secondary to acute exacerbation of COPD Her clinical symptoms at the time of admission were suggestive of acute exacerbation of COPD. Labs did not show increased white count, suggesting less possibility of pneumonia. CT scan however, showed small area of opacification in right lower lobe, which could mean developing pneumonia. -Patient has been started on IV steroids, TRC nebulizations and bronchodilators -IV antibiotics has been started, keeping in mind that the opacification in right lower lobe could be developing pneumonia, and her history of pneumonia with acute exacerbation of COPD. we'll continue IV ceftazidime. Azithromycin has been stopped since yesterday. Second dose of vancomycin was given according to pulmonary consult yesterday. -ABG showed respiratory alkalosis on admission -Patient has been on oxymetazoline for nasal and sinus congestion symptoms, which seems to he helping her. -Pulmonary consultation per Grady Leach MD appreciated. -Awaiting sputum culture and blood cultures. -Rapid flu, urine strep and Legionella antigen>>Negative. -Continue PT consult #Hypertension -We'll continue home medications with lisinopril and Cardizem, holding hydrochlorothiazide right now, but can continue if patient is hypertensive #Hyperlipidemia -We'll continue home medication of atorvastatin #Peripheral vascular disease #Lovenox for DVT prophylaxis #Diet: Regular diet #CODE STATUS: DNR/DNI Problem List: 1. COPD exacerbation 2. Pneumonia 3. Hyperlipidemia 4. Hypertension 5. 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 Requiring 5L NC to maintain oxygen, desaturates otherwise. Initially with thick yellow sputum but has been dry since then. Reports sinus congestion that is improving. Afebrile, stable vitals. Has a history of recurrent pneumonia with cultures growing E.coli, Klebsiella, and Pseudomonas in the past. Significant improvement today. Breathing much better, able to ambulate without becoming significantly short of breath, chest congestion has improved. Still on 5L NC. 1. Acute on chronic hypoxemic respiratory failure 2. RLL Community acquired pneumonia 3. Acute exacerbation of end-stage COPD 4. Severe PVD Plan - Continue as inpatient - Continue Prednisone 40mg daily - Continue Ceftazidime, Azithromycin complete - Given single dose Vancomycin - Follow cultures - Continue Flovent, Albuterol, Atrovent - Continue Afrin and Mucinex for congestion - Follow pulmonary recommendations - PT evaluation - Continue home medications - DVT PPx
--- NOTE | 2016-07-16 06:42 | PN- Student ---
Subjective Subjective: Morning Visit: -The patient mentioned that she had a good night sleep and there were no events of SOB during it; statement confirmed by nurse afterwards. -She was able to help herself to the commode. -She was able to hold a conversation >5 mins without developing SOB. -Still SOB upon minnimal exertion. Afternoon Visit: -Patient was on a seated position with mild respiratory distress but not looking uncomfortable. -Only mild SOB while talking for >5mins. Objective Objective: Vital Signs Date Time Temp Pulse Resp B/P Pulse O2 O2 Flow FiO2 Ox Delivery Rate 07/16 1601 97.6 84 18 120/54 96 Nasal 2.0L Cannula 07/16 1232 Nasal 5.0L Cannula 07/16 0915 Nasal 5.0L Cannula 07/16 0856 78 148/70 07/16 0822 98.0 78 18 130/80 95 Nasal 5.0L Cannula 07/16 0800 93 Nasal 4.0L Cannula 07/16 0756 95 Nasal 5.0L Cannula 07/16 0039 97.7 85 18 128/88 97 Nasal 5.0L Cannula 07/16 0000 Nasal 5.0L Cannula 07/15 2014 94 Nasal 5.0L Cannula Intake & Output 07/16 1600 07/16 0800 07/16 0000 Intake Total 373 559 9020 Output Total 400 450 200 Balance -160 -210 940 Intake, IV 540 Intake, Oral 240 240 600 Output, Urine 400 450 200 Patient 86 lb Weight Physical Examination: General: 86 y/o F with mild respiratory distress, afebrile and alert. HEENT: Not assessed Neck: Not assessed Mouth: No lip pursing noted. Lungs: Mild crackles in both lungs and expiratory wheezes near the base of the R Lung. CV: S1, S2 sounds were heard; no murmurs were heard. GI: Not assessed Genitourinary: Not assessed MSK: Not assessed Upper Extremities: Not assessed Lower Extremities: No signs of edema. Neurological: Normal Speech. Additional Notes: Awaiting for Physical Therapist to assess SOB on minnimal exertion. Results Results: Laboratory Tests 07/14/16 1433: pH 7.44, pCO2 48 H, pO2 82, HCO3 32 H, ABG O2 Sat (Measured) 95.0 L, P-50 ( Temp Corrected) N, Carboxyhemoglobin 0 L, O2 Concentration % 4LPM, O2 Delivery Method NC, Phlebotomy Draw Site RIGHT BRACHIAL 07/14/16 1200: Troponin I Cancelled 07/14/16 0840: Anion Gap 12, Estimated GFR > 60, BUN/Creatinine Ratio 35.7 H, Troponin I < 0.01, CBC w Diff MAN DIFF ORDERED, RBC 4.45, MCV 88.9, MCH 29.7, RDW 13.6, MPV 7.3 L, Gran % 95.7 H, Lymphocytes % 2.5 L, Monocytes % 1.7, Eosinophils % 0.1 , Basophils % 0 L, Absolute Granulocytes 8.2 H, Segmented Neutrophils 93 H, Band Neutrophils 5, Absolute Lymphocytes 0.2 L, Lymphocytes 1 L, Monocytes 1 L, Absolute Monocytes 0.1 L, Absolute Eosinophils 0, Absolute Basophils 0, Platelet Estimate VERIFIED BY SMEAR, Normocytic RBCs VERIFIED, Normochromic RBCs VERIFIED, PUBS MCHC 33.4 07/14/16 0725: Urinalysis LIGHT H, Urine Color YEL, Urine Clarity CLEAR, Urine pH 6.0, Ur Specific [place] 1.010, Urine Protein TRACE H, Urine Ketones NEG, Urine Nitrite NEG, Urine Bilirubin NEG, Urine Urobilinogen 0.2, Ur Leukocyte Esterase NEG, Ur Microscopic SEDIMENT EXAMINED, Urine RBC 15-25 H, Urine WBC 1-3 H, Ur Epithelial Cells RARE, Urine Hemoglobin MOD H, Urine Glucose NEG 07/13/16 2238: Anion Gap 8, Estimated GFR > 60, BUN/Creatinine Ratio 32.5 H, Glucose 129 H, Calcium 9.1, Total Bilirubin 0.6, Direct Bilirubin 0.4, AST 32, ALT 38, Alkaline Phosphatase 83, Troponin I < 0.01, [id number] Pept 409 H, Total Protein 6.5, Albumin 3.6, Amylase 64, Lipase 54, D-Dimer > 5250 H, CBC w Diff NO MAN DIFF REQ, RBC 4.18 L, MCV 88.7, MCH 30.3, RDW 13.4, MPV 6.7 L, Gran % 93.3 H, Lymphocytes % 2.0 L, Monocytes % 4.4, Eosinophils % 0.2, Basophils % 0.1, Absolute Granulocytes 10.2 H, Absolute Lymphocytes 0.2 L, Absolute Monocytes 0.5, Absolute Eosinophils 0, Absolute Basophils 0, PUBS MCHC 34.2 Microbiology 07/14 1999 UPPER RESP: Surveillance Culture - RECD 07/14 724 URINE ROUT: Streptococcus pneumoniae Antigen (M - COMP 07/14 724 URINE ROUT: Legionella Antigen - RES 07/14 724 URINE ROUT: Urine Culture - RES 07/14 146 LOWER RESP: Respiratory Culture - CAN Cancelled: SPECIMEN NOT RECEIVED IN LABORATORY 07/14 146 LOWER RESP: Gram Stain - CAN Cancelled: SPECIMEN NOT RECEIVED IN LABORATORY 07/14 146 BLOOD: Blood Culture - CAN Cancelled: SPECIMENS NEVER RECEIVED 07/14 146 BLOOD: Blood Culture - CAN Cancelled: SPECIMENS NEVER RECEIVED Assessment/Plan Assessment: Patient is a 86y/o F with a PMHx of COPD (Emphysema), HTN, DM and Hyperlipidemia.The patient has a Hx of recurrent COPD exacerbations and pneumonia. The patient came in with symptoms that were consistent with COPD exacerbation. Vital signs are within normal values and the patient is afebrile. Oxygen saturation has greatly improved to a 97% from 89% and the mucolytic/ anticogestive medications started to relieve her congestive symptoms. Patient Impression: The patient is in mild respiratory distress and seems to be saturating oxygen better while on oxygen at 5 mL/min. Anticongestive medication loosened the previous mucous plugging provided relief to the patient. Since the patient is afebrile and is improving the current regimen of steroids and antibiotics is being effective. Plan: - Continue on Nasal Canula (5mL/min). - Follow up on physical therapy to assess SOB. - Increase physical activity to approach baseline oxygen level (3 mL/min). - Continue administering Afrin and Mucines for congestion. - Continue on Nasal Canula (5mL/min). - Follow up on physical therapy to assess SOB. - Increase physical activity to approach baseline oxygen level (3 mL/min). - Continue administering Afrin and Mucines for congestion.
[2016-07-16 08:22] VITALS: BP 130/80
--- NOTE | 2016-07-16 12:19 | PN- Pulmonary ---
Subjective HPI/Critical Care Issues: Sitting in her Chair nasal cannula at 5 L/m, and does not seem to be in respiratory distress compared to yesterday. She doesn't have any active complaints. Vitals have been stable, no overnight issues. Review of Systems Constitutional: Reports: no symptoms. EENTM: Reports: no symptoms. Cardiovascular: Reports: no symptoms. Respiratory: Reports: cough, short of breath, wheezing. Gastrointestinal: Reports: no symptoms. Genitourinary: Reports: no symptoms. Musculoskeletal: Reports: no symptoms. Skin: Reports: no symptoms. Neurological/Psychological: Reports: no symptoms. Hematologic/Endocrine: Reports: no symptoms. Objective Current Medications: Current Medications Sig/Janusz Start time Last Medication Dose Route Stop Time Status Admin Acetaminophen 325 MG Q6P PRN 07/14 0015 AC PO Albuterol Sulfate 3 ML TID 07/14 1600 AC 07/16 INH 0752 Albuterol Sulfate 2 PUF Q4P PRN 07/14 0200 AC INH Aspirin 81 MG DAILY 07/14 1000 AC 07/16 PO 0856 Atorvastatin Calcium 40 MG DAILY 07/14 1000 AC 07/16 PO 0856 Azithromycin 500 MG 2300 07/14 2300 DC 07/15 Sodium Chloride 250 ML IV 07/15 2300 2226 Calcium/Vitamin D 500 MG DAILY 07/14 1000 AC 07/16 PO 0859 Ceftazidime 1,000 MG Q12 07/14 2200 AC 07/16 IV 0855 Diltiazem HCl 240 MG DAILY 07/14 1000 AC 07/16 PO 0856 Enoxaparin Sodium 40 MG DAILY 07/14 1000 AC 07/16 SC 0855 Fluticasone 2 PUF BID 07/14 1000 AC 07/16 Propionate INH 0854 Guaifenesin 600 MG Q12 07/14 2200 AC 07/16 PO 0856 Hydrochlorothiazide 25 MG DAILY 07/14 1000 AC 07/16 PO 0856 Lisinopril 5 MG DAILY 07/14 1000 AC 07/16 PO 0856 Oxymetazoline HCl 2 SPRAY BID PRN 07/14 1615 AC 07/15 OSCAR 1541 Patient Medication 1 ED .STK-MED ONE 07/15 1406 DC Teaching ED 07/15 1407 Prednisone 40 MG DAILY 07/15 1000 AC 07/16 PO 07/27 0959 0856 Tiotropium [place] 1 PUF DAILY 07/14 1000 AC 07/16 INH 0858 Vancomycin HCl 500 MG ONCE ONE 07/15 1600 DC 07/15 Sodium Chloride 250 ML IV 07/15 1659 1542 Vital Signs & I&O Last 24 Hrs of Vitals and I&O: Vital Signs Date Time Temp Pulse Resp B/P Pulse O2 O2 Flow FiO2 Ox Delivery Rate 07/16 0915 Nasal 5.0L Cannula 07/16 0856 78 148/70 07/16 0822 98.0 78 18 130/80 95 Nasal 5.0L Cannula 07/16 0756 95 Nasal 5.0L Cannula 07/16 0039 97.7 85 18 128/88 97 Nasal 5.0L Cannula 07/16 0000 Nasal 5.0L Cannula 07/15 2015 94 Nasal 5.0L Cannula 07/15 1700 94 Nasal 5.0L Cannula 07/15 1649 97.7 88 17 116/84 89 Nasal 4.0L Cannula 07/15 1600 94 Nasal 5.0L Cannula Intake & Output 07/16 1600 07/16 0800 07/16 0000 Intake Total 240 1140 Output Total 450 200 Balance -210 940 Intake, IV 540 Intake, Oral 240 600 Output, Urine 450 200 Patient 86 lb Weight Impression/Plan Impression/Plan Impression/Plan: Physical Exam General Appearance Alert, Oriented X3, Cooperative, coughing all the time with yellow production Skin No Rashes HEENT Atraumatic, PERRLA, EOMI, Mucous Membr. moist/pink Neck No JVD Cardiovascular Regular Rate, Normal S1, Normal S2, No Murmurs Lungs decrease air entry b/l with some wheezing Abdomen Normal Bowel Sounds, Soft, No Tenderness Neurological Normal Speech Extremities No Clubbing, No Cyanosis, No Edema SIGNIFICANT DATA CT scan of the chest showed severe diffuse emphysema with nodular opacities within the dependent aspect of the right lower lobe with a few tree-in-bud opacification in the right lower lobe suggestive of pneumonia. There is no pulmonary embolism. Previous cultures had grown Escherichia coli strep pneumo Klebsiella. Patient also had Pseudomonas before. ABG reviewed and co2 is 48 IMPRESSION This is a lady with very end-stage COPD on chronic oxygen therapy, previous aortic aneurysm repair, hypertension, hyperlipidemia, severe peripheral vascular disease, worsening overall performance status, now with * Resolving Acute on chronic hypoxemic and hypercarbic respiratory failure related to acute COPD exacerbation * Pneumonia, CAP in a patient who is on chronic steroids, with previous pseudomonas and staph infections * Severe end-stage lung disease * Severe peripheral vascular disease * Patient also has chronic hypercarbia as a baseline bicarbonate is elevated * No venous thromboembolism. RECOMMENDATION * Change her antibiotics to po tabby arce * Give dose of ceftaz to day * Continue all outpatient medications * Prednisone 40 mg qd and taper in ten days to 5 mg * Sputum culture * Await blood culture * Prob dc in am Patient is DNR/DNI prognosis is guarded
[2016-07-16 16:01] VITALS: BP 120/54
[2016-07-17 00:15] VITALS: BP 124/56
--- NOTE | 2016-07-17 06:48 | PN- Housestaff ---
JULEE VILLASENOR,NILSA 07/17/16 0648: Subjective Follow-up For: Acute exacerbation of COPD Complaints: still short of breath Subjective: I followed up and examined the patient today. She is resting comfortably on the bed, resting comfortably with a distal oxygen being delivered by nasal cannula at 4L/min (1 L less than yesterday). She said that she still has some shortness of breath on minimal exertion, but not at rest. She seemed short of breath after she talked for about 3 minutes with me. Cough has been decreasing, no fever, no chest pain or palpitation. No overnight issues. Vitals have been stable overnight except for saturations being maintained by additional oxygen. Review of Systems Constitutional: Reports: no symptoms. EENTM: Reports: no symptoms. Cardiovascular: Reports: no symptoms. Respiratory: Reports: short of breath. Gastrointestinal: Reports: no symptoms. Genitourinary: Reports: no symptoms. Musculoskeletal: Reports: no symptoms. Skin: Reports: no symptoms. Neurological/Psychological: Reports: no symptoms. Hematologic/Endocrine: Reports: no symptoms. Objective Last 24 Hrs of Vital Signs/I&O Vital Signs Date Time Temp Pulse Resp B/P Pulse O2 O2 Flow FiO2 Ox Delivery Rate 07/17 0857 97.9 86 20 122/70 98 Nasal 2.0L Cannula 07/17 0852 97.5 85 18 124/56 07/17 0817 93 Nasal 4.0L Cannula 07/17 0800 94 Nasal 4.0L Cannula 07/17 0015 97.5 85 18 124/56 96 Nasal 2.0L Cannula 07/16 2046 92 Nasal 4.0L Cannula 07/16 1601 97.6 84 18 120/54 96 Nasal 2.0L Cannula 07/16 1600 93 Nasal 4.0L Cannula 07/16 1232 Nasal 5.0L Cannula Intake & Output 07/17 1600 07/17 0800 07/17 0000 Intake Total 120 Output Total 500 Balance -380 Intake, IV 20 Intake, Oral 100 Output, Urine 500 Physical Exam General Appearance: Alert, Oriented X3, Cooperative, Mild Distress Other Physical Findings: Physical examnination: General: thin buit patient in mild distress Head: Normocephalic, atraumatic Eyes: Pupils normal in size, regular, reacting to light and accommodation, EOM normal Ears: B/l normal on inspection Nose: Normal on inspection Throat/mouth: Moist mucosa Neck: Supple, full range of motion, no thyromegaly Heart: Regular rate, regular rhythm Lung: Bilateral crackles heard over lung bases, no wheezes heard the patient had just received her breathing treatment Abd: Soft, non-tender, no distention appreciated Back: Normal range of motion Extremities: Normal knee exam bilaterally, [no] pedal edema, Distal neurovascular intact Neurologic: Alert, oriented x3, Cranial exam grossly intact, Speech is clear and coherent Skin: Warm and dry Psychiatric: Calm, cooperative, coherant, Current Medications: Current Medications Sig/Janusz Start time Last Medication Dose Route Stop Time Status Admin Acetaminophen 325 MG Q6P PRN 07/14 0015 AC PO Albuterol Sulfate 3 ML TID 07/14 1600 AC 07/17 INH 0814 Albuterol Sulfate 2 PUF Q4P PRN 07/14 0200 AC INH Aspirin 81 MG DAILY 07/14 1000 AC 07/17 PO 0851 Atorvastatin Calcium 40 MG DAILY 07/14 1000 AC 07/17 PO 0851 Calcium/Vitamin D 500 MG DAILY 07/14 1000 AC 07/17 PO 0851 Ceftazidime 1,000 MG Q12 07/14 2200 AC 07/17 IV 0850 Diltiazem HCl 240 MG DAILY 07/14 1000 AC 07/17 PO 0851 Enoxaparin Sodium 40 MG DAILY 07/14 1000 AC 07/17 SC 0850 Fluticasone 2 PUF BID 07/14 1000 AC 07/17 Propionate INH 0905 Guaifenesin 600 MG Q12 07/14 2200 AC 07/17 PO 0851 Hydrochlorothiazide 25 MG DAILY 07/14 1000 AC 07/17 PO 0851 Lisinopril 5 MG DAILY 07/14 1000 AC 07/17 PO 0852 Oxymetazoline HCl 2 SPRAY BID PRN 07/14 1615 AC 07/15 OSCAR 1541 Prednisone 40 MG DAILY 07/15 1000 AC 07/17 PO 07/27 0959 0851 Tiotropium [place] 1 PUF DAILY 07/14 1000 AC 07/17 INH 0850 Assessment/Plan Assessment: 86 yo F with pmh of COPD on home oxygen 3L/min, abdominal aortic aneurysm status post stenting, hypertension, hyperlipidemia, skin cancer status post resection, currently admitted and being managed in general medical floor for acute exacerbation of COPD. #Acute hypoxic respiratory failure, secondary to acute exacerbation of COPD Her clinical symptoms at the time of admission were suggestive of acute exacerbation of COPD. Labs did not show increased white count, suggesting less possibility of pneumonia. CT scan however, showed small area of opacification in right lower lobe, which could mean developing pneumonia. -Patient has been started on IV steroids, TRC nebulizations and bronchodilators -IV antibiotics has been started, keeping in mind that the opacification in right lower lobe could be developing pneumonia, and her history of pneumonia with acute exacerbation of COPD. IV antibiotics can now safely be converted to oral antibiotics. Patient received IV ceftriaxone, azithromycin and vancomycin while in the hospital. -Patient has shown signs of improvement and can now take remainder of her antibiotic therapy by mouth and respiratory physical therapy at a rehabilitation facility where respiratory rehabilitation is available. Having said that, her symptoms have not completely subsided though. -ABG showed respiratory alkalosis on admission -Patient has been on oxymetazoline for nasal and sinus congestion symptoms, which seems to he helping her. -Pulmonary consultation per Grady Leach MD appreciated. -Awaiting sputum culture and blood cultures. -Rapid flu, urine strep and Legionella antigen>>Negative. -Continue PT consult #Hypertension -We'll continue home medications with lisinopril and Cardizem, holding hydrochlorothiazide right now, but can continue if patient is hypertensive #Hyperlipidemia -We'll continue home medication of atorvastatin #Peripheral vascular disease #Lovenox for DVT prophylaxis #Diet: Regular diet #CODE STATUS: DNR/DNI Problem List: 1. COPD exacerbation 2. Pneumonia 3. Hyperlipidemia 4. 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 Requiring 5L NC to maintain oxygen, desaturates otherwise. Initially with thick yellow sputum but has been dry since then. Reports sinus congestion that is improving. Afebrile, stable vitals. Has a history of recurrent pneumonia with cultures growing E.coli, Klebsiella, and Pseudomonas in the past. Significant improvement today. Breathing much better, able to ambulate without becoming significantly short of breath, chest congestion has improved. Still on 5L NC. 1. Acute on chronic hypoxemic respiratory failure 2. RLL Community acquired pneumonia 3. Acute exacerbation of end-stage COPD 4. Severe PVD Plan - Stable for discharge to pulmonary rehab - Continue Prednisone 40mg daily - Continue Flovent, Albuterol, Atrovent - Continue Afrin and Mucinex for congestion - Follow pulmonary recommendations - Continue home medications
--- NOTE | 2016-07-17 08:24 | PN- Pulmonary ---
Subjective HPI/Critical Care Issues: Improving Wishes to go to [facility] [place] Still coughing No sig sputum No n/v/d ROS neg otherwise Objective Current Medications: Current Medications Sig/Janusz Start time Last Medication Dose Route Stop Time Status Admin Acetaminophen 325 MG Q6P PRN 07/14 0015 AC PO Albuterol Sulfate 3 ML TID 07/14 1600 AC 07/17 INH 0814 Albuterol Sulfate 2 PUF Q4P PRN 07/14 0200 AC INH Aspirin 81 MG DAILY 07/14 1000 AC 07/16 PO 0856 Atorvastatin Calcium 40 MG DAILY 07/14 1000 AC 07/16 PO 0856 Calcium/Vitamin D 500 MG DAILY 07/14 1000 AC 07/16 PO 0859 Ceftazidime 1,000 MG Q12 07/14 2200 AC 07/16 IV 2150 Diltiazem HCl 240 MG DAILY 07/14 1000 AC 07/16 PO 0856 Enoxaparin Sodium 40 MG DAILY 07/14 1000 AC 07/16 SC 0855 Fluticasone 2 PUF BID 07/14 1000 AC 07/16 Propionate INH 2150 Guaifenesin 600 MG Q12 07/14 2200 AC 07/16 PO 2150 Hydrochlorothiazide 25 MG DAILY 07/14 1000 AC 07/16 PO 0856 Lisinopril 5 MG DAILY 07/14 1000 AC 07/16 PO 0856 Oxymetazoline HCl 2 SPRAY BID PRN 07/14 1615 AC 07/15 OSCAR 1541 Prednisone 40 MG DAILY 07/15 1000 AC 07/16 PO 07/27 0959 0856 Tiotropium [place] 1 PUF DAILY 07/14 1000 AC 07/16 INH 0858 Vital Signs & I&O Last 24 Hrs of Vitals and I&O: Vital Signs Date Time Temp Pulse Resp B/P Pulse O2 O2 Flow FiO2 Ox Delivery Rate 07/17 0015 97.5 85 18 124/56 96 Nasal 2.0L Cannula 07/16 2046 92 Nasal 4.0L Cannula 07/16 1601 97.6 84 18 120/54 96 Nasal 2.0L Cannula 07/16 1600 93 Nasal 4.0L Cannula 07/16 1232 Nasal 5.0L Cannula 07/16 0915 Nasal 5.0L Cannula 07/16 0856 78 148/70 Intake & Output 07/17 1600 07/17 0800 07/17 0000 Intake Total 120 Output Total 500 Balance -380 Intake, IV 20 Intake, Oral 100 Output, Urine 500 Impression/Plan Impression/Plan Impression/Plan: Physical Exam General Appearance Alert, Oriented X3, Cooperative, coughing all the time with yellow production Skin No Rashes HEENT Atraumatic, PERRLA, EOMI, Mucous Membr. moist/pink Neck No JVD Cardiovascular Regular Rate, Normal S1, Normal S2, No Murmurs Lungs decrease air entry b/l with some wheezing Abdomen Normal Bowel Sounds, Soft, No Tenderness Neurological Normal Speech Extremities No Clubbing, No Cyanosis, No Edema SIGNIFICANT DATA CT scan of the chest showed severe diffuse emphysema with nodular opacities within the dependent aspect of the right lower lobe with a few tree-in-bud opacification in the right lower lobe suggestive of pneumonia. There is no pulmonary embolism. Previous cultures had grown Escherichia coli strep pneumo Klebsiella. Patient also had Pseudomonas before. ABG reviewed and co2 is 48 Cultures neg IMPRESSION This is a lady with very end-stage COPD on chronic oxygen therapy, previous aortic aneurysm repair, hypertension, hyperlipidemia, severe peripheral vascular disease, worsening overall performance status, now with * Resolving Acute on chronic hypoxemic and hypercarbic respiratory failure related to acute COPD exacerbation * Pneumonia, CAP in a patient who is on chronic steroids, with previous pseudomonas and staph infections * Severe end-stage lung disease * Severe peripheral vascular disease * Patient also has chronic hypercarbia as a baseline bicarbonate is elevated * No venous thromboembolism. RECOMMENDATION * Change her antibiotics to po [place] for five more days * Can go to rehab in am (w[facility]) * Continue all outpatient medications * Prednisone 40 mg qd and taper in ten days to 5 mg * Prob dc in am Patient is DNR/DNI prognosis is guarded
[2016-07-17 08:57] VITALS: BP 122/70
--- NOTE | 2016-07-17 09:43 | PN- Student ---
Subjective Subjective: Morning Visit: - The patient had a proper night sleep but more congested this morning. - Ms. Frias claims to have good appetite but currently doesn't eat all her food since it triggers SOB. - The patient mentioned that yesterday she was able to ambulate to the commode with less level of difficulty but still has SOB while doing it. - She is scheduled with the PT today to increase the exertional amount. - Patient is in a good mood had minimal respiratory distress while holding the conversation. Objective Objective: Vital Signs Date Time Temp Pulse Resp B/P Pulse O2 O2 Flow FiO2 Ox Delivery Rate 07/17 856 97.9 86 20 122/70 98 Nasal 2.0L Cannula 07/17 0852 97.5 85 18 124/56 07/17 0817 93 Nasal 4.0L Cannula 07/17 0800 94 Nasal 4.0L Cannula 07/17 0015 97.5 85 18 124/56 96 Nasal 2.0L Cannula 07/16 2046 92 Nasal 4.0L Cannula 07/16 1601 97.6 84 18 120/54 96 Nasal 2.0L Cannula 07/16 1600 93 Nasal 4.0L Cannula 07/16 1232 Nasal 5.0L Cannula Intake & Output 07/17 1600 07/17 0800 07/17 0000 Intake Total 120 Output Total 500 Balance -380 Intake, IV 20 Intake, Oral 100 Output, Urine 500 Physical Examination: General: 86 y/o F with mild respiratory distress, afebrile and alert. HEENT: Not assessed Neck: Not assessed Mouth: No signs of central cyanosis. Lungs: Distant wheezes were appreciated. CV: S1, S2 sounds were heard; no murmurs were heard. GI: Not assessed Genitourinary: Not assessed MSK: Not assessed Upper Extremities: Not assessed Lower Extremities: No signs of edema. Neurological: Normal Speech. Additional Notes: Physical therapist will be visiting today to increase exercise load. Results Results: Laboratory Tests 07/14/16 1433: pH 7.44, pCO2 48 H, pO2 82, HCO3 32 H, ABG O2 Sat (Measured) 95.0 L, P-50 ( Temp Corrected) N, Carboxyhemoglobin 0 L, O2 Concentration % 4LPM, O2 Delivery Method NC, Phlebotomy Draw Site RIGHT BRACHIAL 07/14/16 1200: Troponin I Cancelled Microbiology 07/14 1999 UPPER RESP: Surveillance Culture - COMP Assessment/Plan Assessment: Assessment: Patient is a 86y/o F with a PMHx of COPD (Emphysema), HTN, DM and Hyperlipidemia.The patient has a Hx of recurrent COPD exacerbations and pneumonia. The patient came in with symptoms that were consistent with COPD exacerbation. As of today vitals signs are withing the normal reference values and the Oxygen saturation is being maintained over 95% while on Nasal [place]. The oxygen supply is being tapered down to her baseline (3mL/min) and is currently on 4mL/min. Patient Impression: The patient is in mild respiratory distress and seems to be saturating oxygen better while on oxygen at 4 mL/min. The WBC count started to drop to normal values and it could be indicative of infection relief; hence, the current medication regimen is being effective. Plan: - Continue on Nasal Canula (4mL/min). - Follow up on physical therapy. - Increase physical activity to approach baseline oxygen level (3 mL/min). - Continue administering Afrin and Mucinex. - Schedule [employer] En[employer] Operator consultations to assess current pneumonia status. - Potential discharge today. - Provide medical education on Pulmonary Rehab
[2016-07-17] MEDS ORDERED: PREDNISONE10 M2 PO (12:54)
[2016-07-17] MEDS ORDERED: AVELOX400 M1 PO (12:54)
--- NOTE | 2016-07-17 12:57 | Patient Discharge Instructions ---
Discharge Instructions General Discharge Information You were seen/treated for: Pneumonia, COPD exacerbation Special Instructions: 1. Follow-up with Dr. Leach after discharge 2. Follow-up with primary care physician in a week upon discharge 3. Continue follow-up with COPD clinic Diet Continue normal diet: Yes Activity Full Activity/No Limits: Yes Acute Coronary Syndrome Inclusion Criteria At DC or during hospital stay patient has or had the following: ACS DIAGNOSIS No Discharge Core Measures Meds if any: Prescribed or Continued at Discharge Meds if any: NOT Prescribed or Continued at Discharge Congestive Heart Failure Inclusion Criteria At DC or during hospital stay patient has or had the following: CHF DIAGNOSIS No Discharge Core Measures Meds if any: Prescribed or Continued at Discharge Meds if any: NOT Prescribed or Continued at Discharge Cerebrovascular accident Inclusion Criteria At DC or during hospital stay patient has or had the following: CVA/TIA Diagnosis No Discharge Core Measures Meds if any: Prescribed or Continued at Discharge Meds if any: NOT Prescribed or Continued at Discharge Venous thromboembolism Inclusion Criteria VTE Diagnosis No VTE Type NONE VTE Confirmed by (Test) NONE Discharge Core Measures - Per Current guidelines, there needs to be overlap - treatment for the first 5 days of Warfarin therapy. - If discharged on Warfarin prior to 5 days of - overlap therapy, the patient will need to be - assessed for post discharge needs including - *Post discharge parental anticoagulation - *Warfarin and/or parental anticoagulation education - *Follow up date to check INR post discharge At least 5 days overlap therapy as Inpatient No Meds if any: Prescribed or Continued at Discharge Note: Overlap Therapy is Warfarin and Anticoagulant Meds if any: NOT Prescribed or Continued at Discharge
[2016-07-17 15:27] VITALS: BP 122/70
== END 2016-07-17 16:05 | DRG 190 ==
LOC: ERH 21:18 → ERHI 07-14 01:22 → 2NB 07-14 01:22
PROVIDERS: Pediatrics; Student in an Organized Health Care Education/Training Program; ADMIT Internal Medicine
DX: J44.1 Chronic obstructive pulmonary disease with (acute) exacerbation (principal); J18.9 Pneumonia, unspecified organism; J96.21 Acute and chronic respiratory failure with hypoxia; R64 Cachexia; E87.3 Alkalosis; Z68.1 Body mass index [BMI] 19.9 or less, adult; J44.0 Chronic obstructive pulmonary disease with (acute) lower respiratory infection; I10 Essential (primary) hypertension; E78.5 Hyperlipidemia, unspecified; I73.9 Peripheral vascular disease, unspecified
CPT/HCPCS: 2NSBP; 36415; 81001; 82436; 87040; 87070; 87086; 87449; 87450; 87804; 87804-59; 93005; 93010; 96374; 96375; 97001-GP; 97110-GO; 97112-GO; 97116-GO; 97161-GP; 97530-GO; 99291; J0456; J0696; J0713; J1650; J2920; J3370; J3490; J7040

== ENCOUNTER 2017-10-29 11:52 | Inpatient (IN) | payer OTHER, MEDICARE ==
[~2017-10-29] VITALS: Ht 157.5 cm; Wt 39.9 kg
[~2017-10-29 11:52] MED LIST changes: -ATORVASTATIN CA40 MG PO; +AVELOX400 M1 PO; +CEFPROZIL PO; +DILTIAZEM 24HR240 MG PO; -DILTIAZEM HCL240 MG PO; +LIPITOR40 M1 PO; +MECLIZINE HCL12.5 M1 PO; +PREDNISONE10 M2 PO; +PRINIVIL5 M1 PO
--- NOTE | 2017-10-29 12:24 | ED GI/GU/ABDOMINAL COMPLAINT ---
History of Present Illness General Chief Complaint: General Adult Stated Complaint: PT WAS SIB FOR STOMACH TEST Source: patient, family, old records Exam Limitations: no limitations Vital Signs & Intake/Output Vital Signs & Intake/Output Vital Signs Date Time Temp Pulse Resp B/P B/P Pulse O2 O2 Flow FiO2 Mean Ox Delivery Rate 10/29 1743 98.2 78 19 147/68 94 Nasal 1.5L Cannula 10/29 1535 97.8 76 18 127/59 96 Nasal 1.5L Cannula 10/29 1436 97.4 70 20 96/49 96 Room Air 10/29 1155 97.0 94 20 90/50 92 Nasal 2.0L Cannula Allergies Coded Allergies: codeine (NAUSEA 07/13/16) oxycodone (From Percocet) (NAUSEA 07/13/16) propoxyphene (NAUSEA 07/13/16) Opioids - Morphine Analogues (Mild, NAUSEA 07/13/16) Triage Note: PT TO ED WITH DAUGTHER FOR C/O ABD PAIN, N/V/D SINCE WEDNESDAY. PAIN COMES AND GOES. PT TO EKG [facility]. Triage Nurses Notes Reviewed? yes ? n Is pt currently ? No Onset: Abrupt Duration: day(s): (3), constant Timing: recent history Quality/Severity: cramping, moderate, sharpness, severe Location: generalized abdomen Radiation: no radiation Activities at Onset: none HPI: 87-year-old female comes into the emergency room with complaints of abdominal pain nausea vomiting and diarrhea. Patient reports that symptoms began this past Wednesday. Patient has a history of COPD and is on azithromycin maintenance every other day. She reports that her shortness of breath is baseline for her. She has a chronic cough. She denies any fever. She reports that she had sudden onset of vomiting and diarrhea and abdominal pain this past Wednesday. She is a multiple episodes. The pain has improved mildly but she is still symptomatic so she decided to come in for further evaluation. (Jaquan Rg) Reconcile Medications Albuterol Sulfate (Proair Hfa) 90 MCG HFA.AER.AD 1-2 PUF INH Q4H PRN RESP. ( Reported) Aspirin (Ecotrin*) 81 MG TABLET.DR 1 TAB PO DAILY HEART/BLOOD (Reported) Atorvastatin Calcium (Lipitor) 40 MG TABLET 1 TAB PO DAILY CHOLESTEROL ( Reported) Azithromycin 250 MG TABLET 1 TAB PO EOD ABX (Reported) Cholecalciferol (Vitamin D3) (Vitamin D) 1,000 UNIT TABLET 1 TAB PO DAILY SUPPLEMENT (Reported) Diltiazem HCl (Diltiazem 24HR ER) 240 MG CAP.ER.24H 1 CAP PO DAILY HEART/BP ( Reported) Fluticasone Propionate (Flonase Allergy Relief) 50 MCG/ACTUATION SPRAY.SUSP 1 SPRAY NASB DAILY NASAL CONGESTION (Reported) Lisinopril (Prinivil) 10 MG TABLET 1 TAB PO DAILY BP (Reported) Multivitamin (Multi-Vitamin Daily) 1 EACH TABLET 1 TAB PO DAILY SUPPLEMENT ( Reported) Prednisone 5 MG TABLET 1 TAB PO EOD STEROID (Reported) Tiotropium [place] (Spiriva) 18 MCG CAP.W.DEV 1 CAP INH DAILY RESP. (Reported ) (Bogdan VILLASENOR,Baljeet Lang) Past History Travel History Traveled to [place] past 21 day No Medical History Any Pertinent Medical History? see below for history Neurological: NONE EENT: NONE Cardiovascular: aortic aneurysm, hypertension, hyperlipidemia Respiratory: COPD, pneumonia, HOME O2 Gastrointestinal: NONE Hepatic: NONE Renal: NONE Musculoskeletal: NONE Psychiatric: NONE Endocrine: NONE Blood Disorders: NONE Cancer(s): NONE [employer] SERGEANT/Reproductive: NONE History of MRSA: No History of VRE: No History of CDIFF: No Pneumonia Vaccine: 03/12/15 Influenza Vaccine: 03/12/16 Tetanus Vaccine: 11/03/13 Surgical History Surgical History: aaa repair Psychosocial History Who do you live with Daughter Services at Home [employer] What is your primary language Nepali Tobacco Use: Quit >30 days ago ETOH Use: denies use Illicit Drug Use: denies illicit drug use Family History Hx Contributory? No (Jaquan Rg) Review of Systems Review of Systems Constitutional: Reports: no symptoms. EENTM: Reports: no symptoms. Respiratory: Reports: no symptoms. Cardiovascular: Reports: no symptoms. GI: Reports: see HPI. Genitourinary: Reports: no symptoms. Musculoskeletal: Reports: no symptoms. Skin: Reports: no symptoms. Neurological/Psychological: Reports: no symptoms. Hematologic/Endocrine: Reports: no symptoms. Immunologic/Allergic: Reports: no symptoms. All Other Systems: Reviewed and Negative (Jaquan Rg) Physical Exam Physical Exam General Appearance: alert, awake, mild distress, thin Head: atraumatic Eyes: Bilateral: normal appearance. Ears, Nose, Throat, Mouth: moist mucous membrane Neck: normal inspection Respiratory: no respiratory distress Cardiovascular: regular rate/rhythm Gastrointestinal: soft, tenderness Back: normal inspection Extremities: normal range of motion Neurologic/Psych: awake, alert, oriented x 3 Skin: intact, normal color Core Measures ACS in differential dx? No Sepsis Present: No Sepsis Focused Exam Completed? No (Jaquan Rg) Progress Differential Diagnosis: appendicitis, biliary colic, bowel obstruction, cholecystitis, diverticulitis, gastritis, ischemic bowel, inflamm bowel dis, kidney stone, ovarian cyst, ovarian torsion, pancreatitis, PID/cervicitis, peptic ulcer, PUD/GERD, perforated viscous, SBO Plan of Care: Orders Procedure Date/time Status Nothing by Mouth 10/30 B Active CBC WITHOUT DIFFERENTIAL 10/30 0600 Active BASIC ELECTROLYTES PLUS BUN&CR 10/30 0600 Active Nothing by Mouth 10/29 D Complete Add-on Test (ER Only) 10/29 1738 Active Pathway - chart 10/29 1732 Active TYPE & SCREEN (NOT X-MATCH) 10/29 1725 Complete Pathway - chart 10/29 1718 Active House Staff 10/29 1718 Active Patient Data 10/29 1718 Active Code Status 10/29 1718 Active CULTURE,URINE 10/29 1613 Active URINALYSIS 10/29 1613 Active Patient Data 10/29 1601 Active ED Holding Orders 10/29 1551 Active Admit to inpatient 10/29 1551 Active Vital Signs 10/29 1551 Active Code Status 10/29 1551 Complete LACTIC ACID 10/29 1523 Complete LIPASE 10/29 1229 Complete LDH (LACT ACID DEHYDROGENASE) 10/29 1229 Complete AMYLASE 10/29 1229 Complete BLOOD CULTURE 10/29 1224 Active CULTURE,STOOL 10/29 1223 Active C.DIFFICILE 10/29 1223 Active TROPONIN LEVEL 10/29 1223 Complete LACTIC ACID 10/29 1223 Complete COMPREHENSIVE METABOLIC PANEL 10/29 1223 Complete CBC WITHOUT DIFFERENTIAL 10/29 1223 Complete Intake & Output 10/29 1221 Active EKG 10/29 1159 Active TRC EVALUATION (GEN) 10/29 UNK Active OXYGEN SETUP (GEN) 10/29 UNK Active Lab Add-on Test 10/29 UNK Active VTE Mechanical Prophylaxis 10/29 UNK Active Vital Signs 10/29 UNK Active Intake & Output 10/29 UNK Active Activity/Ambulation 10/29 UNK Active Current Medications Sig/Janusz Start time Last Medication Dose Stop Time Status Admin Prednisone 5 MG Q48 10/31 899 AC Aspirin Buffered 81 MG DAILY 10/30 899 AC (Ecotrin) Azithromycin 250 MG Q48H 10/30 899 AC (Zithromax) Cholecalciferol 1,000 IU DAILY 10/30 899 AC (Vitamin D) Diltiazem HCl 240 MG DAILY 10/30 899 AC (Cardizem CD) Fluticasone 2 SPRAY DAILY 10/30 899 AC Propionate (Flonase) Lisinopril 10 MG DAILY 10/30 899 AC (Prinivil) Multivitamins 1 TAB DAILY 10/30 899 AC Therapeutic (Theragran-M Vitamins Tabs) Metronidazole 500 MG IQ8 10/30 0000 CAN (Flagyl) N/A 1 UNIT (No Carrier) Acetaminophen 1,000 MG Q6P PRN 10/29 1745 AC (Ofirmev) N/A 1 UNIT (No Carrier) Atorvastatin Calcium 40 MG DAILY 10/29 1742 AC (Lipitor) Ceftriaxone Sodium 1,000 MG DAILY 10/29 1730 CAN (Rocephin) Metronidazole 500 MG IQ8 10/29 1730 AC 10/29 (Flagyl) 1819 N/A 1 UNIT (No Carrier) Sodium Chloride 1,000 ML Q13H 10/29 1730 AC (Normal Saline 0.9%) Ceftriaxone Sodium 1,000 MG DAILY 10/29 1726 AC 10/29 (Rocephin) 1736 Enoxaparin Sodium 40 MG DAILY 10/29 1721 UNVr 10/29 (Lovenox) 1735 Pantoprazole Sodium 40 MG DAILY 10/29 1720 AC 10/29 (Protonix) 1735 Sodium Chloride 1,000 ML ONCE ONE 10/29 1230 AC 10/29 (Normal Saline 0.9%) 10/29 1909 1238 Laboratory Tests 10/29/17 1813: Urine Color Pending, Urine Clarity Pending, Urine pH Pending, Ur Specific [place] Pending, Urine Protein Pending, Urine Ketones Pending, Urine Nitrite Pending, Urine Bilirubin Pending, Urine Urobilinogen Pending, Ur Leukocyte Esterase Pending, Ur Microscopic Pending, Urine Hemoglobin Pending, Urine Glucose Pending 10/29/17 1530: Lactic Acid 0.8 10/29/17 1229: Anion Gap 9, Estimated GFR 47 L, BUN/Creatinine Ratio 31.8 H, Glucose 143 H, Lactic Acid 2.9 H, Calcium 9.3, Total Bilirubin 0.6, AST 25, ALT 34, Alkaline Phosphatase 128 H, Lactate Dehydrogenase 505, Troponin I < 0.01, Total Protein 6.0 L, Albumin 3.4 L, Globulin 2.6, Albumin/Globulin Ratio 1.3, Amylase 55, Lipase 41, CBC w Diff MAN DIFF ORDERED, RBC 3.95 L, MCV 89.7, MCH 30.0, MCHC 33.5, RDW 14.2, MPV 6.9 L, Gran % 95.3 H, Lymphocytes % 2.0 L, Monocytes % 2.5, Eosinophils % 0.1, Basophils % 0.1, Absolute Granulocytes 12.3 H, Segmented Neutrophils 76 H, Band Neutrophils 21 H, Absolute Lymphocytes 0.3 L , Lymphocytes 1 L, Monocytes 2, Absolute Monocytes 0.3, Absolute Eosinophils 0, Absolute Basophils 0, Platelet Estimate ADEQUATE, Normochromic RBCs VERIFIED, Anisocytosis 1+ 10/29/17 1223: Urine Color Cancelled, Urine Clarity Cancelled, Urine pH Cancelled, Ur Specific [place] Cancelled, Urine Protein Cancelled, Urine Ketones Cancelled, Urine Nitrite Cancelled, Urine Bilirubin Cancelled, Urine Urobilinogen Cancelled, Ur Leukocyte Esterase Cancelled, Ur Microscopic Cancelled, Urine Hemoglobin Cancelled, Urine Glucose Cancelled Microbiology 10/29 1813 URINE ROUT: Urine Culture - RECD 10/29 1255 BLOOD: Blood Culture - RECD 10/29 1245 BLOOD: Blood Culture - RECD 10/29 1223 STOOL: Clostridium difficile Toxin A & B - ORD 10/29 1223 STOOL: Stool Culture - ORD Diagnostic Imaging: Viewed by Me: Radiology Read, CT Scan. Discussed w/RAD: Radiology Read, CT Scan. Radiology Impression: PATIENT: FELICIA NAVARRO PRESENT AGE: 87 PATIENT ACCOUNT NO: [id number] : 32 LOCATION: [facility] ORDERING PHYSICIAN: Jaquan MARTINES SERVICE DATE: 10/29/17 EXAM TYPE : CAT - CT ABD & PELVIS W IV CONTRAST EXAMINATION: CT ABDOMEN AND PELVIS WITH CONTRAST CLINICAL INFORMATION: Severe abdominal pain. Diarrhea and vomiting. COMPARISON: CT abdomen and pelvis dated 07/22/2007. TECHNIQUE: Multidetector volumetric imaging was performed of the abdomen and pelvis following IV administration of 95 mL of Optiray 320 intravenous contrast. Sagittal and coronal reformatted images were obtained on the technologist's workstation. DLP: 231.88 mGy-cm FINDINGS: LUNG BASES: Reticular changes bilateral bases, right greater than left. Low-attenuation focus measuring approximately 2.2 x 1.6 cm posterior mediastinum along left periaortic region (series 2 image 10). Interval increase compared to prior examination. LIVER, GALLBLADDER, AND BILIARY TREE: Tiny low-attenuation hepatic foci too small to be accurately characterized demonstrate interval increase in number compared to the prior examination. These measure 0.2 to 0.5 cm. Unremarkable gallbladder. Tortuous and mildly dilated CBD. PANCREAS: Mild prominence of the pancreatic duct. No focal pancreatic abnormality. 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 SPLEEN: Unremarkable. ADRENAL GLANDS: Unremarkable. KIDNEYS AND URETERS: Bilateral extrarenal pelvis. Mild urothelial enhancement noted bilaterally in the region of urinary pelvis (series 602 image 43). Fullness of bilateral renal pelvis without any gross hydronephrosis. BLADDER: Distended urinary bladder. No focal abnormality. GASTROINTESTINAL TRACT: Mildly prominent fluid-filled small bowel loops noted in the lower abdomen. No gross evidence of obstruction. Mildly distended and fluid- filled cecum. Incompletely distended versus mildly thick-walled ascending colon. ABDOMINAL WALL: Low-attenuation focus right inguinal region measuring approximately 2.2 x 1.5 cm demonstrates fluid attenuation. Findings may represent small right inguinal hernia containing trace fluid. LYMPH NODES: Normal. VASCULAR: Postoperative changes noted in the distal aorta and iliacs. Atherosclerotic disease of the [place] aorta. Interval decrease in the size of previously seen abdominal aortic aneurysm. Previously placed proximal iliac stents no longer demonstrate opacification. Enhancing bilateral iliac arteries with atherosclerotic disease at the iliofemoral junction with stenosis of the proximal femoral arteries. PELVIC VISCERA: Small uterus. Ovaries are not well visualized. There is moderate free fluid noted in the pelvis. Etiology is uncertain. OSSEOUS STRUCTURES: Degenerative changes of the spine. No acute osseous abnormality. IMPRESSION: 1. Nonspecific mildly distended and fluid- filled small bowel loops. Fluid-filled and mildly distended cecum. 2. Mildly thick-walled descending colon. Wall thickness is also noted at the splenic flexure. Mild dilatation of the large bowel proximal to the abnormal wall thickness. Findings may represent colitis. Ischemic colitis cannot be excluded. Clinical correlation recommended. 3. Small amount of free fluid noted in the pelvis. 4. Severe atherosclerotic disease and interval postoperative changes as detailed. Finding discussed with Dr. Miller at 3:07 PM on 10/29/2017. DICTATED BY: Cruzito Vargas MD DATE/TIME DICTATED:10/29/171409 FORENSIC LOCKSMITH: MARGARITO DATE/TIME TRANSCRIBED:10/29/171409 CONFIDENTIAL, DO NOT COPY WITHOUT APPROPRIATE AUTHORIZATION. <Electronically signed in Other Vendor System> SIGNED BY: Cruzito Vargas MD 10/29/17 1524, PATIENT: FELICIA NAVARRO PRESENT AGE: 87 PATIENT ACCOUNT NO: [id number] : 32 LOCATION: [facility] ORDERING PHYSICIAN: Jaquan MARTINES SERVICE DATE: 10/29/17 EXAM TYPE: RAD - XRY-PORTABLE CHEST XRAY EXAMINATION: XR PORTABLE CHEST CLINICAL INFORMATION: Shortness of breath COMPARISON: Chest x-rays most recent prior dated 07/13/2016 TECHNIQUE: Portable frontal view of the chest was obtained. FINDINGS: Hyperinflated lungs compatible with underlying COPD. Subtle nodular opacity right lower lung most likely represents prominent nipple shadow. No acute airspace opacity. Atherosclerotic disease with intimal calcification of the aorta. Bony thorax is intact. IMPRESSION: 1. No acute pulmonary disease. 2. Nodular opacity right lower lung most likely represents prominent nipple shadow. Somewhat similar appearance also seen on the prior chest x-ray dated 08/19/2014. DICTATED BY: Cruzito Vargas MD DATE/TIME DICTATED:10/29/171339 FORENSIC LOCKSMITH:KC DATE/TIME TRANSCRIBED:10/29/171339 CONFIDENTIAL, DO NOT COPY WITHOUT APPROPRIATE AUTHORIZATION. <Electronically signed in Other Vendor System> SIGNED BY: Cruzito Vargas MD 10/29/17 1403 Initial ED EKG: normal sinus rhythm, rate (87) (Jaquan Rg) Departure Departure Disposition: STILL A PATIENT Condition: Stable Clinical Impression Primary Impression: Ischemic colitis Referrals: Rickey Bae MD (PCP/Family) Departure Forms: Customer Survey General Discharge Information Admission Note Spoke With: Dillon VILLASENOR,Adriana Documentation of Exam: Documentation of any treatments & extenuating circumstances including Concerns Regarding Discharge (functional status, medication knowledge or non-compliance, living conditions, etc.) that warrant an admission rather than observation: IV fluids. GI consultation. GI was paged but no call back at this time. House staff will follow-up. Patient will require pain control. Colonoscopy. Stool samples. Potential the infectious disease consultation for C. difficile colitis. (Paul MARTINES,Jaquan) PA/HANDSTITCHING MACHINE COLLAR FELLER Co-Sign Statement Statement: ED Attending supervision documentation- [X] I saw and evaluated the patient. I have also reviewed all the pertinent lab results and diagnostic results. I agree with the findings and the plan of care as documented in the PA's/HANDSTITCHING MACHINE COLLAR FELLER's documentation. [X] I have reviewed the ED Record and agree with the PA's/HANDSTITCHING MACHINE COLLAR FELLER's documentation. [] Additions or exceptions (if any) to the PAs/HANDSTITCHING MACHINE COLLAR FELLER's note and plan are summarized below: [Patient to be admitted for IV fluids, nothing by mouth, GI consultation, high risk for early discharge.] (Bogdan VILLASENOR,Baljeet Lang)
[2017-10-29 12:39] LABS: ABSOLUTE BASOPHIL COUNT 0 /CUMM (0.0-0.2); ABSOLUTE EOSINOPHIL COUNT 0 /CUMM (0.0-0.7); ABSOLUTE GRANULOCYTE CT 12.3 /CUMM (1.4-6.5); ABSOLUTE LYMPH COUNT 0.3 /CUMM (1.2-3.4); ABSOLUTE MONOCYTE COUNT 0.3 /CUMM (0.10-0.60); BASOPHIL % 0.1 % (0.0-2.0); EOSINOPHIL % 0.1 % (0-5); GRANULOCYTE % 95.3 % (42.2-75.2); HEMATOCRIT 35.5 % (37-47); MEAN CORPUSCULAR HGB CONC 33.5 G/DL (33.0-37.0); MEAN CORPUSCULAR VOLUME 89.7 FL (81.0-99.0); MEAN PLATELET VOLUME 6.9 FL (7.4-10.4); PLATELET COUNT 187 /CUMM (130-400); RBC DISTRIBUTION WIDTH 14.2 % (11.5-14.5); RED BLOOD CELL CT 3.95 /CUMM (4.20-5.40); WHITE BLOOD CELL COUNT 12.9 /CUMM (4.8-10.8)
--- NOTE | 2017-10-29 14:03 | RADIOLOGY REPORT ---
EXAMINATION: XR PORTABLE CHEST CLINICAL INFORMATION: Shortness of breath COMPARISON: Chest x-rays most recent prior dated 07/13/2016 TECHNIQUE: Portable frontal view of the chest was obtained. FINDINGS: Hyperinflated lungs compatible with underlying COPD. Subtle nodular opacity right lower lung most likely represents prominent nipple shadow. No acute airspace opacity. Atherosclerotic disease with intimal calcification of the aorta. Bony thorax is intact. IMPRESSION: 1. No acute pulmonary disease. 2. Nodular opacity right lower lung most likely represents prominent nipple shadow. Somewhat similar appearance also seen on the prior chest x-ray dated 08/19/2014.
--- NOTE | 2017-10-29 15:24 | CT SCAN REPORT ---
EXAMINATION: CT ABDOMEN AND PELVIS WITH CONTRAST CLINICAL INFORMATION: Severe abdominal pain. Diarrhea and vomiting. COMPARISON: CT abdomen and pelvis dated 07/22/2007. TECHNIQUE: Multidetector volumetric imaging was performed of the abdomen and pelvis following IV administration of 95 mL of Optiray 320 intravenous contrast. Sagittal and coronal reformatted images were obtained on the technologist's workstation. DLP: 231.88 mGy-cm FINDINGS: LUNG BASES: Reticular changes bilateral bases, right greater than left. Low-attenuation focus measuring approximately 2.2 x 1.6 cm posterior mediastinum along left periaortic region (series 2 image 10). Interval increase compared to prior examination. LIVER, GALLBLADDER, AND BILIARY TREE: Tiny low-attenuation hepatic foci too small to be accurately characterized demonstrate interval increase in number compared to the prior examination. These measure 0.2 to 0.5 cm. Unremarkable gallbladder. Tortuous and mildly dilated CBD. PANCREAS: Mild prominence of the pancreatic duct. No focal pancreatic abnormality. 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 SPLEEN: Unremarkable. ADRENAL GLANDS: Unremarkable. KIDNEYS AND URETERS: Bilateral extrarenal pelvis. Mild urothelial enhancement noted bilaterally in the region of urinary pelvis (series 602 image 43). Fullness of bilateral renal pelvis without any gross hydronephrosis. BLADDER: Distended urinary bladder. No focal abnormality. GASTROINTESTINAL TRACT: Mildly prominent fluid-filled small bowel loops noted in the lower abdomen. No gross evidence of obstruction. Mildly distended and fluid-filled cecum. Incompletely distended versus mildly thick-walled ascending colon. ABDOMINAL WALL: Low-attenuation focus right inguinal region measuring approximately 2.2 x 1.5 cm demonstrates fluid attenuation. Findings may represent small right inguinal hernia containing trace fluid. LYMPH NODES: Normal. VASCULAR: Postoperative changes noted in the distal aorta and iliacs. Atherosclerotic disease of the [place] aorta. Interval decrease in the size of previously seen abdominal aortic aneurysm. Previously placed proximal iliac stents no longer demonstrate opacification. Enhancing bilateral iliac arteries with atherosclerotic disease at the iliofemoral junction with stenosis of the proximal femoral arteries. PELVIC VISCERA: Small uterus. Ovaries are not well visualized. There is moderate free fluid noted in the pelvis. Etiology is uncertain. OSSEOUS STRUCTURES: Degenerative changes of the spine. No acute osseous abnormality. IMPRESSION: 1. Nonspecific mildly distended and fluid-filled small bowel loops. Fluid-filled and mildly distended cecum. 2. Mildly thick-walled descending colon. Wall thickness is also noted at the splenic flexure. Mild dilatation of the large bowel proximal to the abnormal wall thickness. Findings may represent colitis. Ischemic colitis cannot be excluded. Clinical correlation recommended. 3. Small amount of free fluid noted in the pelvis. 4. Severe atherosclerotic disease and interval postoperative changes as detailed. Finding discussed with Dr. Miller at 3:07 PM on 10/29/2017.
[2017-10-29] MEDS ORDERED: ASPIRIN EC81 M1 PO (15:38)
[2017-10-29] MEDS ORDERED: MULTI-VITAMIN1 EACH PO (15:39)
[2017-10-29] MEDS ORDERED: PRINIVIL10 M1 PO (15:39)
[2017-10-29] MEDS ORDERED: SPIRIVA18 MCG INH (15:40)
[2017-10-29] MEDS ORDERED: PROAIR HFA8.5 GM INH (15:40)
[2017-10-29] MEDS ORDERED: PREDNISONE5 M1 PO (15:40)
[2017-10-29] MEDS ORDERED: VITAMIN D1000 UNIT PO (15:41)
[2017-10-29] MEDS ORDERED: AZITHROMYCIN250 M1 PO (15:41)
[2017-10-29] MEDS ORDERED: LISINOPRIL10 M1 PO (15:42)
[2017-10-29] MEDS ORDERED: FLONASE ALLERG9.9 ML NASB (15:42)
--- NOTE | 2017-10-29 16:16 | History & Physical ---
Janay VILLASENOR,[facility] 10/29/17 1886: General Information and HPI History of Present Illness: Ms. Frias is an 87-year-old female with past medical history of abdominal aortic aneurysms, hypertension, hyperlipidemia, and COPD on 3 L home oxygen followed by Dr. Leach who presents with abdominal pain. The patient has the abdominal pain occurred Wednesday night after experiencing episodes of nonbloody diarrhea and vomiting. The pain continued through and this morning she decided to come in for further evaluation. She does note that she had pizza recently from outside. She has of some baseline shortness of breath secondary to COPD but denies any recent travel, sick contacts, fever, chills, sweats, chest pain. She is a former smoker and drank alcohol socially. She denies recreational drug use. Allergies/Medications Allergies: Coded Allergies: codeine (NAUSEA 07/13/16) oxycodone (From Percocet) (NAUSEA 07/13/16) propoxyphene (NAUSEA 07/13/16) Opioids - Morphine Analogues (Mild, NAUSEA 07/13/16) Home Med list Albuterol Sulfate (Proair Hfa) 90 MCG HFA.AER.AD 1-2 PUF INH Q4H PRN RESP. ( Reported) Aspirin (Ecotrin*) 81 MG TABLET.DR 1 TAB PO DAILY HEART/BLOOD (Reported) Atorvastatin Calcium (Lipitor) 40 MG TABLET 1 TAB PO DAILY CHOLESTEROL ( Reported) Azithromycin 250 MG TABLET 1 TAB PO EOD ABX (Reported) Cholecalciferol (Vitamin D3) (Vitamin D) 1,000 UNIT TABLET 1 TAB PO DAILY SUPPLEMENT (Reported) Diltiazem HCl (Diltiazem 24HR ER) 240 MG CAP.ER.24H 1 CAP PO DAILY HEART/BP ( Reported) Fluticasone Propionate (Flonase Allergy Relief) 50 MCG/ACTUATION SPRAY.SUSP 1 SPRAY NASB DAILY NASAL CONGESTION (Reported) Fluticasone-Salmeterol (Advair 100-50 Diskus) 100 MCG-50 MCG/DOSE BLST.W.DEV 1 PUF INH BID COPD (Reported) Lisinopril (Prinivil) 10 MG TABLET 1 TAB PO DAILY BP (Reported) Multivitamin (Multi-Vitamin Daily) 1 EACH TABLET 1 TAB PO DAILY SUPPLEMENT ( Reported) Prednisone 5 MG TABLET 1 TAB PO EOD STEROID (Reported) Tiotropium [place] (Spiriva) 18 MCG CAP.W.DEV 1 CAP INH DAILY RESP. (Reported ) Past History Travel History Traveled to [place] past 21 day No Medical History Neurological: NONE EENT: NONE Cardiovascular: aortic aneurysm, hypertension, hyperlipidemia Respiratory: COPD, pneumonia, HOME O2 Gastrointestinal: NONE Hepatic: NONE Renal: NONE Musculoskeletal: NONE Psychiatric: NONE Endocrine: NONE Blood Disorders: NONE Cancer(s): NONE CLOTH TEARER/Reproductive: NONE History of MRSA: No History of VRE: No History of CDIFF: No Pneumonia Vaccine: 03/12/15 Influenza Vaccine: 03/12/16 Tetanus Vaccine: 11/03/13 Surgical History Surgical History: aaa repair Past Family/Social History Psychosocial History Services at Home: Oxygen ETOH Use: denies use Illicit Drug Use: denies illicit drug use Review of Systems Review of Systems Constitutional: Reports: no symptoms. EENTM: Reports: no symptoms. Cardiovascular: Reports: no symptoms. Respiratory: Reports: no symptoms. GI: Reports: no symptoms. Genitourinary: Reports: see HPI. Musculoskeletal: Reports: no symptoms. Skin: Reports: no symptoms. Neurological/Psychological: Reports: no symptoms. Hematologic/Endocrine: Reports: no symptoms. Immunologic/Allergic: Reports: no symptoms. All Other Systems: Reviewed and Negative Exam & Diagnostic Data Last 24 Hrs of Vital Signs/I&O Vital Signs Date Time Temp Pulse Resp B/P B/P Pulse O2 O2 Flow FiO2 Mean Ox Delivery Rate 10/29 1535 97.8 76 18 127/59 96 Nasal 1.5L Cannula 10/29 1436 97.4 70 20 96/49 96 Room Air 10/29 1155 97.0 94 20 90/50 92 Nasal 2.0L Cannula Intake & Output 10/29 1600 10/29 0800 10/29 0000 Intake Total 1000 Output Total Balance 1000 Intake, IV 1000 Patient 39.463 kg Weight Weight Estimated Measurement Method Physical Exam General Appearance Alert, Oriented X3, Cooperative, No Acute Distress Skin Temp/Moisture Exam: Warm/Dry Sepsis Skin Exam (color): Normal for Ethnicity HEENT Atraumatic, PERRLA, EOMI Cardiovascular Regular Rate, Normal S1, Normal S2 Lungs mild crackles Abdomen hard, tender in LLQ without rebound Extremities No Edema, Normal Pulses, No Tenderness/Swelling Last 24 Hrs of Labs/Sammy: Laboratory Tests 10/29/17 1530: Lactic Acid 0.8 10/29/17 1229: Anion Gap 9, Estimated GFR 47 L, BUN/Creatinine Ratio 31.8 H, Glucose 143 H, Lactic Acid 2.9 H, Calcium 9.3, Total Bilirubin 0.6, AST 25, ALT 34, Alkaline Phosphatase 128 H, Lactate Dehydrogenase Pending, Troponin I < 0.01, Total Protein 6.0 L, Albumin 3.4 L, Globulin 2.6, Albumin/Globulin Ratio 1.3, Amylase Pending, CBC w Diff MAN DIFF ORDERED, RBC 3.95 L, MCV 89.7, MCH 30.0, MCHC 33.5, RDW 14.2, MPV 6.9 L, Gran % 95.3 H, Lymphocytes % 2.0 L, Monocytes % 2.5, Eosinophils % 0.1, Basophils % 0.1, Absolute Granulocytes 12.3 H, Segmented Neutrophils 76 H, Band Neutrophils 21 H, Absolute Lymphocytes 0.3 L , Lymphocytes 1 L, Monocytes 2, Absolute Monocytes 0.3, Absolute Eosinophils 0, Absolute Basophils 0, Platelet Estimate ADEQUATE, Normochromic RBCs VERIFIED, Anisocytosis 1+ Microbiology 10/29 1613 URINE ROUT: Urine Culture - COLB 10/29 1255 BLOOD: Blood Culture - RECD 10/29 1245 BLOOD: Blood Culture - RECD 10/29 1223 STOOL: Clostridium difficile Toxin A & B - ORD 10/29 1223 STOOL: Stool Culture - ORD Assessment/Plan Assessment: Ms. Frias is an 87-year-old female with past medical history of abdominal aortic aneurysms, hypertension, hyperlipidemia, and COPD on 3 L home oxygen followed by Dr. Leach who presents with abdominal pain. On presentation, vital signs were T 97.0, HR 94, RR 20, BP 190/50, saturating 90 % on 2 L nasal cannula. Laboratories are significant for white blood cell count 12.9, 21 bands, hemoglobin 11.9, MCV 89.7, chloride 93, carbon dioxide 37, BUN 35, creatinine 1.1, glucose 143, lactic acid 12.9, alkaline phosphatase 120. Chest x-ray was negative. CT abdomen/pelvis shows mildly distended fluid-filled small bowel loops, mildly thick-walled ascending colon, mild dilatation of large bowel potentially represent a colitis versus ischemic latest, free fluid in the pelvis, and severe atherosclerotic disease. She will be admitted to general medicine and treated for the following problems: 1. Colitis 2. Leukocytosis with bandemia 3. Lactic acidosis 4. Normocytic anemia #Colitis: Patient presents with abdominal pain, vomiting, and diarrhea as well as CT imaging concerning for ischemic colitis. She has multiple risk factors for ischemic colitis. She also received recent antibiotics (azithromycin), and may have C. difficile versus infectious colitis. Lactic acidosis have trended down. -Gastroenterology and surgery consults -Ceftriaxone and metronidazole -IV fluid hydration -Nothing by mouth -Stool culture/C. difficile -IV PPI #Normocytic anemia: Patient reports that she had blood in her diarrhea. Not hemodynamically significant at this point. -Continue to monitor -Type and screen #Chronic medical problem: -Continue home medications DVT prophylaxis with enoxaparin Nothing by mouth Full code As Ranked By This Provider Problem List: 1. Colitis Core Measures/Misc (03/28) Acute Coronary Syndrome ACS Diagnosis: No Congestive Heart Failure Congestive Heart Failure Diagnosis No Cerebrovascular Accident CVA/TIA Diagnosis: No VTE (View Protocol) VTE Risk Factors Age>40 No Mechanical VTE Prophylaxis d/t N/A MechProphylax Ordered No VTE Pharm Prophylaxis d/t NA PharmProphylax ordered Sepsis (View protocol) Sepsis Present: No Adriana Carranza 10/29/17 1640: Attending MD Review Statement Attending Statement Attending MD Statement: examined this patient, discuss w/resident/PA/US MARKETING DIRECTOR, agreed w/resident/PA/US MARKETING DIRECTOR, discussed with family, reviewed EMR data (avail), discussed with nursing, discussed with case mgmt, reviewed images, amended to note Attending Assessment/Plan: 87 o/f 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 Patient found to have initial LA elevated which is corrected with fluids. WBC mild elevation. Cr 1.1. BUN mild elevation. Hct 35. Vitals stable, afebrile. CT a/p with contrast: "Nonspecific mildly distended and fluid-filled small bowel loops. Fluid-filled and mildly distended cecum. Mildly thick-walled descending colon. Wall thickness is also noted at the splenic flexure. Mild dilatation of the large bowel proximal to the abnormal wall thickness. Findings may represent colitis. Ischemic colitis cannot be excluded. Clinical correlation recommended. " Vascular disease with presence of severe peripheral vascular disease. Iliac stents Previously placed proximal iliac stents no longer demonstrate opacification. Enhancing bilateral iliac arteries with atherosclerotic disease at the iliofemoral junction with stenosis of the proximal femoral arteries. Patient admitted to inpatient medical services for abdominal pain infectious related with differential of ischemia colitis in high risk patient and possible ileus. NPO, IVF, pain control. GI/surgery consult. Abx, Anticaogulation as per GI. Stool work up including c diff. FOBT x 3. Amylase. LDH. Monitor labs and resume home meds. gi/dvt prophyalxis. Abad VILLASENOR,Mary Ann 10/29/17 1733: Resident Review Statement Resident Statement: examined this patient, discussed with legal summer intern, agreed with legal summer intern, discussed with family, reviewed EMR data (avail), discussed with nursing , discussed with case mgmt, reviewed images, amended to note Other Findings: Patient is a 87-year-old female with past mental history significant for thoracic aortic aneurysm, steroid dependent COPD on [address] Leach , hypertension, hyperlipidemia presents to the ER with progressive worsening of abdominal pain. Patient started to experience nausea and vomiting on redness tonight after dinner. She had few episodes of diarrhea on Wednesday and an episode on morning. Since then nausea vomiting/diarrhea resolved. she started experiencing abdominal pain from early in the morning at 1 AM onwards, which got progressively worse specifically in the lower abdominal region and left side of the abdomen. She took some Tylenol which help her with pain. Her intake has been poor for the past few days with limiting to liquids and she continued to take her antihypertensives. She is usually independent of all her activities of daily living, she did have weakness and decreased ablation for the past few days. She denies any chest pain, shortness of breath, dizziness, lightheadedness. Vital signs at admission Temperature 90.7, heart rate 94, blood pressure 90/50 mmHg, saturating 91% on 2L of oxygen. Physcial exam Alert oriented 3, cachexic HEENT PERRLA Lungs clear to auscultation Heart S1-S2 normal with systolic murmur present Abdomen severe tenderness in the lower abdomen and left upper quadrant without any rebound tenderness Lower extremity is 2+ pulses without any evident edema Labs White count 12.9, H&H 11/35.5, platelets 187, sodium 138, potassium 4.1, chloride 93, BUN/creatinine 35/1.1, glucose 143. Lactic acid 2.9 trended down to 0.8 after hydration. ALP 128. Urinalysis is clear, did show trace protein, rare bacteria. Imaging CT abdomen and pelvis did show nonspecific mildly distended fluid-filled small bowel loops, mildly thickened splenic flexure followed by mild dilatation of large bowel proximal --suspicious for ischemic colitis. Assessment Patient is a 87-year-old female with significant history of steroid-dependent COPD on 3 L oxygen, hypertension, hyperlipidemia presented with progressive worsening of abdominal pain after an episode of nausea vomiting and diarrhea and poor per oral intake. Physical examination is significant for tenderness in the left upper quadrant left-sided abdomen and lower abdomen without any rebound tenderness, 2+ pulses throughout and systolic murmur of heart. Labs did show elevated white count with lactic acidosis. Imaging is consistent with possible colitis with splenic fixture thickening and dilation of bowel proximal to it. Problem list 1. Colitis - ischemic vs C. difficile 2. Hypertension 3. 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 Hyperlipidemia Admitted to general medicine floor Colitis Patient had acute abdominal pain after an episode of nausea vomiting and diarrhea resolved. Is more consistent with ischemic picture given significant atherosclerotic disease on CT scan findings. Other possibility would be C. difficile given patient is on azathioprine since long time. 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 She is on 2 L of oxygen at rest, 3 L on exertion. We will continue her home medications including his azithromycin every 48 hours, inhalers. Oxygen supplementation as needed. Chest x-ray appears stable * Continue home regimen Hypertension Continue diltiazem 240 mg, lisinopril 10 mg daily Hyperlipidemia Continue atorvastatin 40 mg daily DVT prophylaxis SC heparin Code status Full code Code status Full code
--- NOTE | 2017-10-29 18:44 | Cons- General Surgery ---
General Information and HPI Consulting Request Date of Consult: 10/29/17 Requested By: Adriana Carranza MD History of Present Illness: This is an 87-year-old woman who presents to the medical service with abdominal pain vomiting and diarrhea. She relates a 2 day history of symptoms beginning after dinner on Wednesday night. She developed profuse watery diarrhea followed by vomiting. She began experiencing abdominal pain, periumbilical. She see my primary care physician today who sent her to the emergency room for further evaluation due to concerns for mesenteric ischemia. Since presented to the ER she was given IV Tylenol and 2 L of normal saline. She feels much better now. Allergies/Medications Allergies: Coded Allergies: codeine (NAUSEA 07/13/16) oxycodone (From Percocet) (NAUSEA 07/13/16) propoxyphene (NAUSEA 07/13/16) Opioids - Morphine Analogues (Mild, NAUSEA 07/13/16) Home Med List: Albuterol Sulfate (Proair Hfa) 90 MCG HFA.AER.AD 1-2 PUF INH Q4H PRN RESP. ( Reported) Aspirin (Ecotrin*) 81 MG TABLET.DR 1 TAB PO DAILY HEART/BLOOD (Reported) Atorvastatin Calcium (Lipitor) 40 MG TABLET 1 TAB PO DAILY CHOLESTEROL ( Reported) Azithromycin 250 MG TABLET 1 TAB PO EOD ABX (Reported) Cholecalciferol (Vitamin D3) (Vitamin D) 1,000 UNIT TABLET 1 TAB PO DAILY SUPPLEMENT (Reported) Diltiazem HCl (Diltiazem 24HR ER) 240 MG CAP.ER.24H 1 CAP PO DAILY HEART/BP ( Reported) Fluticasone Propionate (Flonase Allergy Relief) 50 MCG/ACTUATION SPRAY.SUSP 1 SPRAY NASB DAILY NASAL CONGESTION (Reported) Lisinopril (Prinivil) 10 MG TABLET 1 TAB PO DAILY BP (Reported) Multivitamin (Multi-Vitamin Daily) 1 EACH TABLET 1 TAB PO DAILY SUPPLEMENT ( Reported) Prednisone 5 MG TABLET 1 TAB PO EOD STEROID (Reported) Tiotropium [place] (Spiriva) 18 MCG CAP.W.DEV 1 CAP INH DAILY RESP. (Reported ) Past History Medical History Neurological: NONE EENT: NONE Cardiovascular: aortic aneurysm, hypertension, hyperlipidemia Respiratory: COPD, pneumonia, HOME O2 Gastrointestinal: NONE Hepatic: NONE Renal: NONE Musculoskeletal: NONE Psychiatric: NONE Endocrine: NONE Blood Disorders: NONE Cancer(s): NONE TRAM INSPECTOR/Reproductive: NONE Surgical History Pertinent Surgical History: aaa repair Psychosocial History Services at Home: Oxygen ETOH Use: denies use Illicit Drug Use: denies illicit drug use Review of Systems Review of Systems: abdominal pain. chronic [place]. no chest pain. remainder 12neg Exam & Diagnostic Data Vital Signs and I&O Vital Signs Date Time Temp Pulse Resp B/P B/P Pulse O2 O2 Flow FiO2 Mean Ox Delivery Rate 10/29 1743 98.2 78 19 147/68 94 Nasal 1.5L Cannula 10/29 1535 97.8 76 18 127/59 96 Nasal 1.5L Cannula 10/29 1436 97.4 70 20 96/49 96 Room Air 10/29 1155 97.0 94 20 90/50 92 Nasal 2.0L Cannula Intake & Output 10/29 1600 10/29 0800 10/29 0000 10/28 1600 10/28 0800 10/28 0000 Intake Total 1000 Output Total Balance 1000 Intake, IV 1000 Patient 87 lb 0.02 oz Weight Weight Estimated Measurement Method Physical Exam: Gen.: She looks her stated age she is thin. Mild dyspnea at rest with pursed lip breathing HEENT: Anicteric PERRL EOMI Abdomen: Mild distention and tympany throughout. Healed midline scar. No hernia. Mild tenderness without guarding and left lower quadrant and suprapubic region Extremities: No cyanosis clubbing or edema Last 24 Hours of Labs: Laboratory Tests 10/29 10/29 10/29 1813 1530 1229 Chemistry Sodium (137 - 145 mmol/L) 138 Potassium (3.5 - 5.1 mmol/L) 4.1 Chloride (98 - 107 mmol/L) 93 L Carbon Dioxide (22 - 30 mmol/L) 37 H Anion Gap (5 - 16) 9 BUN (7 - 17 mg/dL) 35 H Creatinine (0.5 - 1.0 mg/dL) 1.1 H Estimated GFR (>60 ml/min) 47 L BUN/Creatinine Ratio (7 - 25 %) 31.8 H Glucose (65 - 99 mg/dL) 143 H Lactic Acid (0.7 - 2.1 mmol/L) 0.8 2.9 H Calcium (8.4 - 10.2 mg/dL) 9.3 Total Bilirubin (0.2 - 1.3 mg/dL) 0.6 AST (14 - 36 U/L) 25 ALT (9 - 52 U/L) 34 Alkaline Phosphatase (<127 U/L) 128 H Lactate Dehydrogenase (313 - 618 U/L) 505 Troponin I (< 0.11 ng/ml) < 0.01 Total Protein (6.3 - 8.2 g/dL) 6.0 L Albumin (3.5 - 5.0 g/dL) 3.4 L Globulin (1.9 - 4.2 gm/dL) 2.6 Albumin/Globulin Ratio (1.1 - 2.2 %) 1.3 Amylase (30 - 110 U/L) 55 Lipase (23 - 300 U/L) 41 Hematology CBC w Diff MAN DIFF ORDERED WBC (4.8 - 10.8 /CUMM) 12.9 H RBC (4.20 - 5.40 /CUMM) 3.95 L Hgb (12.0 - 16.0 G/DL) 11.9 L Hct (37 - 47 %) 35.5 L MCV (81.0 - 99.0 FL) 89.7 MCH (27.0 - 31.0 PG) 30.0 MCHC (33.0 - 37.0 G/DL) 33.5 RDW (11.5 - 14.5 %) 14.2 Plt Count (130 - 400 /CUMM) 187 MPV (7.4 - 10.4 FL) 6.9 L Gran % (42.2 - 75.2 %) 95.3 H Lymphocytes % (20.5 - 51.1 %) 2.0 L Monocytes % (1.7 - 9.3 %) 2.5 Eosinophils % (0 - 5 %) 0.1 Basophils % (0.0 - 2.0 %) 0.1 Absolute Granulocytes (1.4 - 6.5 /CUMM) 12.3 H Segmented Neutrophils (42.2 - 75.2 %) 76 H Band Neutrophils (0.0 - 5.0 %) 21 H Absolute Lymphocytes (1.2 - 3.4 /CUMM) 0.3 L Lymphocytes (20.5 - 51.1 %) 1 L Monocytes (1.7 - 9.3 %) 2 Absolute Monocytes (0.10 - 0.60 /CUMM) 0.3 Absolute Eosinophils (0.0 - 0.7 /CUMM) 0 Absolute Basophils (0.0 - 0.2 /CUMM) 0 Platelet Estimate (ADEQUATE) ADEQUATE Normochromic RBCs VERIFIED Anisocytosis 1+ Urines Urine Color Pending Urine Clarity Pending Urine pH Pending Ur Specific Martin Pending Urine Protein Pending Urine Ketones Pending Urine Nitrite Pending Urine Bilirubin Pending Urine Urobilinogen Pending Ur Leukocyte Esterase Pending Ur Microscopic Pending Urine Hemoglobin Pending Urine Glucose Pending 10/29 1223 Urines Urine Color Cancelled Urine Clarity Cancelled Urine pH Cancelled Ur Specific Martin Cancelled Urine Protein Cancelled Urine Ketones Cancelled Urine Nitrite Cancelled Urine Bilirubin Cancelled Urine Urobilinogen Cancelled Ur Leukocyte Esterase Cancelled Ur Microscopic Cancelled Urine Hemoglobin Cancelled Urine Glucose Cancelled Imaging Results: CT scan of the abdomen pelvis with IV contrast shows patency of the visceral vessels. There is diffuse mild small bowel dilatation without transition site. There is mild thickening of the descending colon and splenic flexure. Small free fluid Assessment/Plan Assessment/Plan 87-year-old woman with probable ischemic colitis. Distribution is that of a "watershed" ischemia. It is reassuring that her symptoms are improved with IV hydration. There is a significant ileus associated with her disease but by CT scan with IV contrast, her SMA is widely patent. Currently there is no need for surgical intervention. Treatment should be aimed at fluid resuscitation and broad-spectrum IV antibiotics. Serial abdominal examination be performed. Operative intervention will be reserved for worsening of her disease. Copies To: Kathia VILLASENOR,Rickey Liu; Haylee VILLASENOR,Grady Stern Consult Acknowledgment - Thank you for your consult request.
[2017-10-29 19:14] VITALS: BP 138/68
[2017-10-29] MEDS ORDERED: ADVAIR 100-501 EACH INH (20:13)
[2017-10-29 21:15] VITALS: BP 140/62
--- NOTE | 2017-10-30 05:43 | PN- Housestaff ---
See Addendum Subjective Follow-up For: Ischemitr colitis Subjective: No overnight events. Agents abdominal pain is improved with Tylenol she is resting comfortably. She has no chest pain or shortness of breath. Review of Systems Constitutional: Reports: no symptoms. EENTM: Reports: no symptoms. Cardiovascular: Reports: no symptoms. Respiratory: Reports: no symptoms. Gastrointestinal: Reports: see HPI. Genitourinary: Reports: no symptoms. Musculoskeletal: Reports: no symptoms. Skin: Reports: no symptoms. Neurological/Psychological: Reports: no symptoms. Hematologic/Endocrine: Reports: no symptoms. Immunologic/Allergic: Reports: no symptoms. Objective Last 24 Hrs of Vital Signs/I&O Vital Signs Date Time Temp Pulse Resp B/P B/P Pulse O2 O2 Flow FiO2 Mean Ox Delivery Rate 10/30 0000 99 Nasal 3.0L Cannula 10/29 2114 98.3 72 18 140/62 99 10/29 2022 Nasal 3.0L Cannula 10/29 1932 91 Nasal 2.0L Cannula 10/29 1914 98.4 83 18 138/68 93 10/29 1845 97.8 76 18 122/58 96 Room Air 10/29 1743 98.2 78 19 147/68 94 Nasal 1.5L Cannula 10/29 1535 97.8 76 18 127/59 96 Nasal 1.5L Cannula 10/29 1436 97.4 70 20 96/49 96 Room Air 10/29 1155 97.0 94 20 90/50 92 Nasal 2.0L Cannula Intake & Output 10/30 0800 10/30 0000 10/29 1600 Intake Total 150 1000 Output Total Balance 150 1000 Intake, IV 150 1000 Patient 39.916 kg 39.463 kg Weight Weight Bed scale Estimated Measurement Method Physical Exam General Appearance: Alert, Oriented X3, Cooperative, No Acute Distress Cardiovascular: Regular Rate, Normal S1, Normal S2 Lungs: Clear to Auscultation Abdomen: hard, tender in LLQ Extremities: No Edema, Normal Pulses, No Tenderness/Swelling Current Medications: Current Medications Sig/Janusz Start time Last Medication Dose Route Stop Time Status Admin Acetaminophen 1,000 MG Q6P PRN 10/29 1745 DC 10/30 N/A 1 UNIT IV 0440 Acetaminophen 0 .STK-MED ONE 10/29 1239 DC IV Acetaminophen 1,000 MG ONCE ONE 10/29 1230 DC 10/29 N/A 1 UNIT IV 10/29 1244 1238 Albuterol Sulfate 2 PUF Q4 HRS NEEDED PRN 10/29 2030 AC INH Aspirin Buffered 81 MG DAILY 10/30 0900 AC PO Atorvastatin Calcium 40 MG DAILY 10/29 1742 AC PO Azithromycin 250 MG Q48H 10/30 0900 AC PO Budesonide/ 2 PUF BID 10/29 2100 CAN Formoterol Fumarate INH Budesonide/ 2 PUF BID 10/29 2100 AC 10/29 Formoterol Fumarate INH 2115 Ceftriaxone Sodium 0 .STK-MED ONE 10/29 1757 DC .ROUTE Ceftriaxone Sodium 1,000 MG DAILY 10/29 1730 CAN IV Ceftriaxone Sodium 1,000 MG DAILY 10/29 1726 AC 10/29 IV 1736 Cholecalciferol 1,000 IU DAILY 10/30 0900 AC PO Dextrose/Sodium 1,000 ML Q13H 10/29 2215 AC 10/29 Chloride IV 2226 Diltiazem HCl 240 MG DAILY 10/30 0900 AC PO Enoxaparin Sodium 0 .STK-MED ONE 10/29 1735 CAN SC Enoxaparin Sodium 40 MG DAILY 10/29 1721 DC 10/29 SC 1735 Fluticasone 2 SPRAY DAILY 10/30 0900 AC Propionate OSCAR Heparin Sodium 5,000 UNIT Q8 10/29 2200 AC 10/30 (Porcine) SC 0441 Lisinopril 10 MG DAILY 10/30 0900 AC PO Metronidazole 500 MG IQ8 10/30 0000 CAN N/A 1 UNIT IV Metronidazole 500 MG IQ8 10/29 1730 AC 10/29 N/A 1 UNIT IV 2316 Multivitamins 1 TAB DAILY 10/30 0900 AC Therapeutic PO Pantoprazole Sodium 0 .STK-MED ONE 10/29 1735 DC IV Pantoprazole Sodium 40 MG DAILY 10/29 1720 AC 10/29 IV 1735 Prednisone 5 MG Q48 10/31 09 AC PO Sodium Chloride 1,000 ML Q13H 10/29 1730 DC 10/29 IV 10/30 1929 2008 Sodium Chloride 1,000 ML ONCE ONE 10/29 1230 DC 10/29 IV 10/29 1909 1238 Tiotropium [place] 1 PUF DAILY 10/30 0900 CAN INH Tiotropium [place] 1 PUF DAILY 10/30 2011 AC INH Last 24 Hrs of Lab/Sammy Results Last 24 Hrs of Labs/Mics: Laboratory Tests 10/29/171812: Urine Color YEL, Urine Clarity CLEAR, Urine pH 6.5, Ur Specific [place] 1.010, Urine Protein TRACE H, Urine Ketones NEG, Urine Nitrite NEG, Urine Bilirubin NEG, Urine Urobilinogen 0.2, Ur Leukocyte Esterase NEG, Ur Microscopic SEDIMENT EXAMINED, Urine RBC 1-3, Urine WBC RARE, Ur Epithelial Cells RARE, Urine Bacteria RARE H, Urine Hemoglobin MOD H, Urine Glucose NEG 10/29/17 1530: Lactic Acid 0.8 10/29/17 1229: Anion Gap 9, Estimated GFR 47 L, BUN/Creatinine Ratio 31.8 H, Glucose 143 H, Lactic Acid 2.9 H, Calcium 9.3, Total Bilirubin 0.6, AST 25, ALT 34, Alkaline Phosphatase 128 H, Lactate Dehydrogenase 505, Troponin I < 0.01, Total Protein 6.0 L, Albumin 3.4 L, Globulin 2.6, Albumin/Globulin Ratio 1.3, Amylase 55, Lipase 41, CBC w Diff MAN DIFF ORDERED, RBC 3.95 L, MCV 89.7, MCH 30.0, MCHC 33.5, RDW 14.2, MPV 6.9 L, Gran % 95.3 H, Lymphocytes % 2.0 L, Monocytes % 2.5, Eosinophils % 0.1, Basophils % 0.1, Absolute Granulocytes 12.3 H, Segmented Neutrophils 76 H, Band Neutrophils 21 H, Absolute Lymphocytes 0.3 L , Lymphocytes 1 L, Monocytes 2, Absolute Monocytes 0.3, Absolute Eosinophils 0, Absolute Basophils 0, Platelet Estimate ADEQUATE, Normochromic RBCs VERIFIED, Anisocytosis 1+ 10/29/17 1223: Urine Color Cancelled, Urine Clarity Cancelled, Urine pH Cancelled, Ur Specific [place] Cancelled, Urine Protein Cancelled, Urine Ketones Cancelled, Urine Nitrite Cancelled, Urine Bilirubin Cancelled, Urine Urobilinogen Cancelled, Ur Leukocyte Esterase Cancelled, Ur Microscopic Cancelled, Urine Hemoglobin Cancelled, Urine Glucose Cancelled Microbiology 10/29 1812 URINE ROUT: Urine Culture - RECD 10/29 1255 BLOOD: Blood Culture - RECD 10/29 1245 BLOOD: Blood Culture - RECD 10/29 1223 STOOL: Clostridium difficile Toxin A & B - ORD 10/29 1223 STOOL: Stool Culture - ORD Assessment/Plan Assessment: Ms. Frias is an 87-year-old female with past medical history of abdominal aortic aneurysms, hypertension, hyperlipidemia, and COPD on 3 L home oxygen followed by Dr. Leach who presented with abdominal pain. Problem list: 1. Ischemic colitis 2. Leukocytosis with bandemia 3. Lactic acidosis 4. Normocytic anemia #Ischemic colitis: Patient presented with abdominal pain, vomiting, and diarrhea as well as CT imaging concerning for ischemic colitis. She has multiple risk factors for ischemic colitis. She also received recent antibiotics (azithromycin ), and may have C. difficile versus infectious colitis. Lactic acidosis have trended down. Overnight her symptoms have improved with IV fluid hydration and acetaminophen. Surgery consulted and does not believe there is any urgent need for surgical intervention. -Appreciate gastroenterology consult -Appreciate surgery recommendations -Ceftriaxone and metronidazole -IV fluid hydration -Nothing by mouth -Stool culture/C. difficile -IV PPI #Normocytic anemia: Patient reports that she had blood in her diarrhea. Not hemodynamically significant at this point. -Continue to monitor -Type and screen #Chronic medical problem: -Continue home medications DVT prophylaxis with enoxaparin Nothing by mouth Full code Problem List: 1. Ischemic colitis Pain Ratin Pain Location: abd Pain Goal: Remain pain free Pain Plan: no Tomorrow's Labs & Rationales: cbc, bep
[2017-10-30 05:59] VITALS: BP 148/68
[2017-10-30 08:32] LABS: ABSOLUTE BASOPHIL COUNT 0 /CUMM (0.0-0.2); ABSOLUTE EOSINOPHIL COUNT 0.1 /CUMM (0.0-0.7); ABSOLUTE GRANULOCYTE CT 5.8 /CUMM (1.4-6.5); ABSOLUTE LYMPH COUNT 0.2 /CUMM (1.2-3.4); ABSOLUTE MONOCYTE COUNT 0.2 /CUMM (0.10-0.60); BASOPHIL % 0.1 % (0.0-2.0); EOSINOPHIL % 1.8 % (0-5); GRANULOCYTE % 92.7 % (42.2-75.2); HEMATOCRIT 30.8 % (37-47); MEAN CORPUSCULAR HGB 30.2 PG (27.0-31.0); MEAN CORPUSCULAR HGB CONC 33.7 G/DL (33.0-37.0); MEAN CORPUSCULAR VOLUME 89.7 FL (81.0-99.0); MEAN PLATELET VOLUME 7.4 FL (7.4-10.4); PLATELET COUNT 136 /CUMM (130-400); RBC DISTRIBUTION WIDTH 14.2 % (11.5-14.5); RED BLOOD CELL CT 3.44 /CUMM (4.20-5.40)
[2017-10-30 09:34] LABS: WHITE BLOOD CELL COUNT 6.3 /CUMM (4.8-10.8)
--- NOTE | 2017-10-30 10:22 | Cons- Gastroenterology ---
General Information and HPI Consulting Request Date of Consult: 10/30/17 Requested By: Adriana Carranza MD Reason for Consult: Abdominal pain, colitis on ct scan. Source of Information: patient, old records Exam Limitations: no limitations History of Present Illness: Ms. Frias is an 87 ollie old female who was sent in to yesterday for her PCP for evaluation for possible mesenteric ischemia after she presented there with pain for the past few days. She notes that after eating dinner on Wednesday she developed some abdominal discomfort which was followed by bilious vomiting and non-bloody diarrhea. This seemed to be self limited but she had some more diarrhea the following day that was also associated with some abdominal pain and this persisted into Wednesday at which point she went to her PCP who sent her to the ER. She notes that her pain at home improved with tylenol, but would recur shortly after taking it. She has been without any fevers, sick contacts or any recent foreign travel. She denies having similar symptoms like this in the past. She has noted some rectal bleeding with the diarrhea which she attributes to hemorrhoids. In the ER she was hemodynamically stable and afebrile. She had a ct scan that showed inflammation around her splenic flexure. She was given IVF in the ER with improvement in her discomfort. She was seen by surgery who didn't feel her overall picture was concerning for mesenteric ischemia based on her ct scan and clinical course. Since admission she has not had any significant vomiting or diarrhea. She has been NPO, but is requesting to eat. Allergies/Medications Allergies: Coded Allergies: codeine (NAUSEA 07/13/16) oxycodone (From Percocet) (NAUSEA 07/13/16) propoxyphene (NAUSEA 07/13/16) Opioids - Morphine Analogues (Mild, NAUSEA 07/13/16) Home Med List: Albuterol Sulfate (Proair Hfa) 90 MCG HFA.AER.AD 1-2 PUF INH Q4H PRN RESP. ( Reported) Aspirin (Ecotrin*) 81 MG TABLET.DR 1 TAB PO DAILY HEART/BLOOD (Reported) Atorvastatin Calcium (Lipitor) 40 MG TABLET 1 TAB PO DAILY CHOLESTEROL ( Reported) Azithromycin 250 MG TABLET 1 TAB PO EOD ABX (Reported) Cholecalciferol (Vitamin D3) (Vitamin D) 1,000 UNIT TABLET 1 TAB PO DAILY SUPPLEMENT (Reported) Diltiazem HCl (Diltiazem 24HR ER) 240 MG CAP.ER.24H 1 CAP PO DAILY HEART/BP ( Reported) Fluticasone Propionate (Flonase Allergy Relief) 50 MCG/ACTUATION SPRAY.SUSP 1 SPRAY NASB DAILY NASAL CONGESTION (Reported) Fluticasone-Salmeterol (Advair 100-50 Diskus) 100 MCG-50 MCG/DOSE BLST.W.DEV 1 PUF INH BID COPD (Reported) Lisinopril (Prinivil) 10 MG TABLET 1 TAB PO DAILY BP (Reported) Multivitamin (Multi-Vitamin Daily) 1 EACH TABLET 1 TAB PO DAILY SUPPLEMENT ( Reported) Prednisone 5 MG TABLET 1 TAB PO EOD STEROID (Reported) Simethicone 80 MG TAB.CHEW 80 MG PO Q8 PRN Gas Tiotropium [place] (Spiriva) 18 MCG CAP.W.DEV 1 CAP INH DAILY RESP. (Reported ) Current Medications: Current Medications Sig/Janusz Start time Last Medication Dose Route Stop Time Status Admin Acetaminophen 1,000 MG Q6P PRN 10/29 1745 DC 10/30 N/A 1 UNIT IV 0440 Acetaminophen 0 .STK-MED ONE 10/29 1239 DC IV Acetaminophen 1,000 MG ONCE ONE 10/29 1230 DC 10/29 N/A 1 UNIT IV 10/29 1244 1238 Albuterol Sulfate 2 PUF Q4 HRS NEEDED PRN 10/29 2030 AC INH Aspirin Buffered 81 MG DAILY 10/30 0900 AC 10/30 PO 1109 Atorvastatin Calcium 40 MG DAILY 10/29 1742 AC 10/30 PO 1111 Azithromycin 250 MG Q48H 10/30 09 AC 10/30 PO 1110 Budesonide/ 2 PUF BID 10/29 2100 CAN Formoterol Fumarate INH Budesonide/ 2 PUF BID 10/29 2100 AC 10/30 Formoterol Fumarate INH 1109 Ceftriaxone Sodium 0 .STK-MED ONE 10/29 1757 DC .ROUTE Ceftriaxone Sodium 1,000 MG DAILY 10/29 1730 CAN IV Ceftriaxone Sodium 1,000 MG DAILY 10/29 1726 AC 10/30 IV 1108 Cholecalciferol 1,000 IU DAILY 10/30 0900 AC 10/30 PO 1110 Dextrose/Sodium 1,000 ML Q13H 10/29 2215 AC 10/29 Chloride IV 2226 Diltiazem HCl 240 MG DAILY 10/30 0900 AC 10/30 PO 1109 Enoxaparin Sodium 0 .STK-MED ONE 10/29 1735 CAN SC Enoxaparin Sodium 40 MG DAILY 10/29 1721 DC 10/29 SC 1735 Fluticasone 2 SPRAY DAILY 10/30 0900 AC Propionate OSCAR Heparin Sodium 5,000 UNIT Q8 10/29 2200 AC 10/30 (Porcine) SC 0441 Lisinopril 10 MG DAILY 10/30 0900 AC 10/30 PO 1109 Metronidazole 500 MG IQ8 10/30 0000 CAN N/A 1 UNIT IV Metronidazole 500 MG IQ8 10/29 1730 AC 10/30 N/A 1 UNIT IV 0805 Multivitamins 1 TAB DAILY 10/30 0900 AC 10/30 Therapeutic PO 1109 Pantoprazole Sodium 0 .STK-MED ONE 10/29 1735 DC IV Pantoprazole Sodium 40 MG DAILY 10/29 1720 AC 10/30 IV 1109 Prednisone 5 MG Q48 10/31 0900 AC PO Sodium Chloride 1,000 ML Q13H 10/29 1730 DC 10/29 IV 10/30 1929 2008 Sodium Chloride 1,000 ML ONCE ONE 10/29 1230 DC 10/29 IV 10/29 1909 1238 Tiotropium [place] 1 PUF DAILY 10/30 0900 CAN INH Tiotropium [place] 1 PUF DAILY 10/29 2012 AC 10/30 INH 1110 Past History Travel History Traveled to [place] past 21 day No Medical History Blood Transfusion Hx: Yes Neurological: NONE EENT: sinusitis Cardiovascular: aortic aneurysm, hypertension, hyperlipidemia Respiratory: COPD, pneumonia, HOME O2 Gastrointestinal: NONE Hepatic: NONE Renal: NONE Musculoskeletal: NONE Psychiatric: NONE Endocrine: NONE Blood Disorders: NONE Cancer(s): NONE INSIDE PHONE SALES/Reproductive: NONE Surgical History Surgical History: aaa repair Psychosocial History Where Do You Live? Home Services at Home: Oxygen Smoking Status: Former Smoker ETOH Use: denies use Illicit Drug Use: denies illicit drug use Review of Systems Review of Systems Constitutional: Reports: malaise, weakness. Denies: chills, diaphoresis, fever, unexplained weight loss. EENTM: Denies: no symptoms. Cardiovascular: Denies: no symptoms. Respiratory: Denies: no symptoms. GI: Reports: see HPI. Genitourinary: Denies: no symptoms. Musculoskeletal: Denies: no symptoms. Skin: Denies: no symptoms. Neurological/Psychological: Denies: no symptoms. Hematologic/Endocrine: Reports: bleeding. Immunologic/Allergic: Denies: no symptoms. All Other Systems: Reviewed and Negative Exam & Diagnostic Data Vital Signs and I&O Vital Signs Date Time Temp Pulse Resp B/P B/P Pulse O2 O2 Flow FiO2 Mean Ox Delivery Rate 10/30 0559 98.1 82 22 148/68 96 Nasal 3.0L Cannula 10/30 0000 99 Nasal 3.0L Cannula 10/295 98.3 72 18 140/62 99 10/29 2022 Nasal 3.0L Cannula 10/29 1932 91 Nasal 2.0L Cannula 10/29 1914 98.4 83 18 138/68 93 10/29 1845 97.8 76 18 122/58 96 Room Air 10/29 1743 98.2 78 19 147/68 94 Nasal 1.5L Cannula 10/29 1535 97.8 76 18 127/59 96 Nasal 1.5L Cannula 10/29 1436 97.4 70 20 96/49 96 Room Air 10/29 1155 97.0 94 20 90/50 92 Nasal 2.0L Cannula Intake & Output 10/30 1600 10/30 0400 10/29 1600 10/29 0400 10/28 1600 10/28 0400 Intake Total 592 644 8413 150 Output Total Balance 859 670 0317 150 Intake, IV 914 812 9578 150 Intake, Oral 0 Number 1 Bowel Movements Patient 88 lb 87 lb 0.02 oz Weight Weight Bed scale Estimated Measurement Method Physical Exam General Appearance: no apparent distress, alert, comfortable Head: atraumatic, normal appearance Eyes: Bilateral: normal appearance. Ears, Nose, Throat: normal pharynx, mildly dry mucous membranes Neck: normal inspection, supple, full range of motion Cardiovascular: regular rate/rhythm Gastrointestinal: normal bowel sounds, soft, non-tender, no organomegaly Rectal: deferred Extremities: normal inspection, no edema Skin: intact, normal color, warm/dry Results Pertinent Lab Results: Laboratory Tests 10/30 10/29 10/29 0630 1813 1530 Chemistry Sodium (137 - 145 mmol/L) 140 Potassium (3.5 - 5.1 mmol/L) 3.4 L Chloride (98 - 107 mmol/L) 103 Carbon Dioxide (22 - 30 mmol/L) 30 Anion Gap (5 - 16) 7 BUN (7 - 17 mg/dL) 20 H Creatinine (0.5 - 1.0 mg/dL) 0.7 Estimated GFR (>60 ml/min) > 60 BUN/Creatinine Ratio (7 - 25 %) 28.6 H Lactic Acid (0.7 - 2.1 mmol/L) 0.8 Hematology CBC w Diff Pending WBC Pending RBC Pending Hgb Pending Hct Pending MCV Pending MCH Pending MCHC Pending RDW Pending Plt Count Pending MPV Pending Gran % Pending Lymphocytes % Pending Monocytes % Pending Eosinophils % Pending Basophils % Pending Absolute Granulocytes Pending Absolute Lymphocytes Pending Absolute Monocytes Pending Absolute Eosinophils Pending Absolute Basophils Pending Urines Urine Color (YEL,AMB,STR) YEL Urine Clarity (CLEAR) CLEAR Urine pH (5.0 - 8.0) 6.5 Ur Specific [place] (1.001 - 1.035) 1.010 Urine Protein (NEG,<30 MG/DL) TRACE H Urine Ketones (NEG) NEG Urine Nitrite (NEG) NEG Urine Bilirubin (NEG) NEG Urine Urobilinogen (0.1 - 1.0 EU/dl) 0.2 Ur Leukocyte Esterase (NEG) NEG Ur Microscopic SEDIMENT EXAMINED Urine RBC (0 - 5 /HPF) 1-3 Urine WBC (0 - 2 /HPF) RARE Ur Epithelial Cells (NONE,FEW) RARE Urine Bacteria (NEG/NONE) RARE H Urine Hemoglobin (NEG) MOD H Urine Glucose (N MG/DL) NEG 10/29 10/29 1229 1223 Chemistry Sodium (137 - 145 mmol/L) 138 Potassium (3.5 - 5.1 mmol/L) 4.1 Chloride (98 - 107 mmol/L) 93 L Carbon Dioxide (22 - 30 mmol/L) 37 H Anion Gap (5 - 16) 9 BUN (7 - 17 mg/dL) 35 H Creatinine (0.5 - 1.0 mg/dL) 1.1 H Estimated GFR (>60 ml/min) 47 L BUN/Creatinine Ratio (7 - 25 %) 31.8 H Glucose (65 - 99 mg/dL) 143 H Lactic Acid (0.7 - 2.1 mmol/L) 2.9 H Calcium (8.4 - 10.2 mg/dL) 9.3 Total Bilirubin (0.2 - 1.3 mg/dL) 0.6 AST (14 - 36 U/L) 25 ALT (9 - 52 U/L) 34 Alkaline Phosphatase (<127 U/L) 128 H Lactate Dehydrogenase (313 - 618 U/L) 505 Troponin I (< 0.11 ng/ml) < 0.01 Total Protein (6.3 - 8.2 g/dL) 6.0 L Albumin (3.5 - 5.0 g/dL) 3.4 L Globulin (1.9 - 4.2 gm/dL) 2.6 Albumin/Globulin Ratio (1.1 - 2.2 %) 1.3 Amylase (30 - 110 U/L) 55 Lipase (23 - 300 U/L) 41 Hematology CBC w Diff MAN DIFF ORDERED WBC (4.8 - 10.8 /CUMM) 12.9 H RBC (4.20 - 5.40 /CUMM) 3.95 L Hgb (12.0 - 16.0 G/DL) 11.9 L Hct (37 - 47 %) 35.5 L MCV (81.0 - 99.0 FL) 89.7 MCH (27.0 - 31.0 PG) 30.0 MCHC (33.0 - 37.0 G/DL) 33.5 RDW (11.5 - 14.5 %) 14.2 Plt Count (130 - 400 /CUMM) 187 MPV (7.4 - 10.4 FL) 6.9 L Gran % (42.2 - 75.2 %) 95.3 H Lymphocytes % (20.5 - 51.1 %) 2.0 L Monocytes % (1.7 - 9.3 %) 2.5 Eosinophils % (0 - 5 %) 0.1 Basophils % (0.0 - 2.0 %) 0.1 Absolute Granulocytes (1.4 - 6.5 /CUMM) 12.3 H Segmented Neutrophils (42.2 - 75.2 %) 76 H Band Neutrophils (0.0 - 5.0 %) 21 H Absolute Lymphocytes (1.2 - 3.4 /CUMM) 0.3 L Lymphocytes (20.5 - 51.1 %) 1 L Monocytes (1.7 - 9.3 %) 2 Absolute Monocytes (0.10 - 0.60 /CUMM) 0.3 Absolute Eosinophils (0.0 - 0.7 /CUMM) 0 Absolute Basophils (0.0 - 0.2 /CUMM) 0 Platelet Estimate (ADEQUATE) ADEQUATE Normochromic RBCs VERIFIED Anisocytosis 1+ Urines Urine Color Cancelled Urine Clarity Cancelled Urine pH Cancelled Ur Specific [place] Cancelled Urine Protein Cancelled Urine Ketones Cancelled Urine Nitrite Cancelled Urine Bilirubin Cancelled Urine Urobilinogen Cancelled Ur Leukocyte Esterase Cancelled Ur Microscopic Cancelled Urine Hemoglobin Cancelled Urine Glucose Cancelled Imaging/Other Studies: SERVICE DATE: 10/29/17 EXAM TYPE: CAT - CT ABD & PELVIS W IV CONTRAST EXAMINATION: CT ABDOMEN AND PELVIS WITH CONTRAST CLINICAL INFORMATION: Severe abdominal pain. Diarrhea and vomiting. COMPARISON: CT abdomen and pelvis dated 07/22/2007. TECHNIQUE: Multidetector volumetric imaging was performed of the abdomen and pelvis following IV administration of 95 mL of Optiray 320 intravenous contrast. Sagittal and coronal reformatted images were obtained on the technologist's workstation. DLP: 231.88 mGy-cm FINDINGS: LUNG BASES: Reticular changes bilateral bases, right greater than left. Low-attenuation focus measuring approximately 2.2 x 1.6 cm posterior mediastinum along left periaortic region (series 2 image 10). Interval increase compared to prior examination. LIVER, GALLBLADDER, AND BILIARY TREE: Tiny low-attenuation hepatic foci too small to be accurately characterized demonstrate interval increase in number compared to the prior examination. These measure 0.2 to 0.5 cm. Unremarkable gallbladder. Tortuous and mildly dilated CBD. PANCREAS: Mild prominence of the pancreatic duct. No focal pancreatic abnormality. 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 SPLEEN: Unremarkable. ADRENAL GLANDS: Unremarkable. KIDNEYS AND URETERS: Bilateral extrarenal pelvis. Mild urothelial enhancement noted bilaterally in the region of urinary pelvis (series 602 image 43). Fullness of bilateral renal pelvis without any gross hydronephrosis. BLADDER: Distended urinary bladder. No focal abnormality. GASTROINTESTINAL TRACT: Mildly prominent fluid-filled small bowel loops noted in the lower abdomen. No gross evidence of obstruction. Mildly distended and fluid-filled cecum. Incompletely distended versus mildly thick-walled ascending colon. ABDOMINAL WALL: Low-attenuation focus right inguinal region measuring approximately 2.2 x 1.5 cm demonstrates fluid attenuation. Findings may represent small right inguinal hernia containing trace fluid. LYMPH NODES: Normal. VASCULAR: Postoperative changes noted in the distal aorta and iliacs. Atherosclerotic disease of the [place] aorta. Interval decrease in the size of previously seen abdominal aortic aneurysm. Previously placed proximal iliac stents no longer demonstrate opacification. Enhancing bilateral iliac arteries with atherosclerotic disease at the iliofemoral junction with stenosis of the proximal femoral arteries. PELVIC VISCERA: Small uterus. Ovaries are not well visualized. There is moderate free fluid noted in the pelvis. Etiology is uncertain. OSSEOUS STRUCTURES: Degenerative changes of the spine. No acute osseous abnormality. IMPRESSION: 1. Nonspecific mildly distended and fluid-filled small bowel loops. Fluid-filled and mildly distended cecum. 2. Mildly thick-walled descending colon. Wall thickness is also noted at the splenic flexure. Mild dilatation of the large bowel proximal to the abnormal wall thickness. Findings may represent colitis. Ischemic colitis cannot be excluded. Clinical correlation recommended. 3. Small amount of free fluid noted in the pelvis. 4. Severe atherosclerotic disease and interval postoperative changes as detailed. Assessment/Plan Assessment/Recommendations: Assessment: Ms. Frias is an 87 year old female who presents with a few days of abdominal pain, vomiting and diarrhea of uncertain etiology, but I suspect it is either secondary to infectious gastroenteritis or ischemic colitis. While her ct scan suggests ischemic colitis with inflammation around a watershed area this generally results in self limited bloody diarrhea and the diarrhea she reports having isn't really bloody, but I'm not certain how accurate her history is either. Regardless, I agree with surgery that I don't feel her symptoms are from mesenteric ischemia and distinguishing between gastroenteritis or ischemic colitis isn't entirely necessary if her symptoms improve with supportive care as both likely will. Recommendations: 1. Advance diet as tolerated. 2. Analgesia as needed. 3. Notify GI for signs of overt GI bleeding. 4. Anti-emetics as needed 5. If she has diarrhea would check stool studies for c diff, culture and o and p 6. If she is able to tolerate a diet and her pain improves with oral medications consideration should be given to dishcarge her home in the next 24- 48 hours. 7. If diarreha persists without any obvious etiology (ie. stool studies negative) consideration will then be given for a diagnostic flex sig, but I am hopeful that this will not be necessary. I will continue to follow this patient and make further recommendations based on her clinical course and results of repeat blood work and stool testing if this is done. Problem List: 1. Ischemic colitis 2. Colitis Copies To: Rickey Bae MD Acknowledgment - Thank you for your consult request.
--- NOTE | 2017-10-30 11:48 | PN- General Surgery ---
Subjective Subjective: Patient reports significant improvement in her abdominal pain. She denies any nausea or vomiting or diarrhea and is requesting to eat or drink something. She reports baseline sob, dyspnea and wears O2 at home. She offer no other complaints. Objective Vital Signs and I&Os Vital Signs Date Time Temp Pulse Resp B/P B/P Pulse O2 O2 Flow FiO2 Mean Ox Delivery Rate 10/30 0559 98.1 82 22 148/68 96 Nasal 3.0L Cannula 10/30 0000 99 Nasal 3.0L Cannula 10/295 98.3 72 18 140/62 99 10/29 2023 Nasal 3.0L Cannula 10/29 1932 91 Nasal 2.0L Cannula 10/29 1914 98.4 83 18 138/68 93 10/29 1845 97.8 76 18 122/58 96 Room Air 10/29 1743 98.2 78 19 147/68 94 Nasal 1.5L Cannula 10/29 1535 97.8 76 18 127/59 96 Nasal 1.5L Cannula 10/29 1436 97.4 70 20 96/49 96 Room Air Intake & Output 10/30 1600 10/30 0800 10/30 0000 10/29 1600 10/29 0800 10/29 0000 Intake Total 198 627 0673 150 Output Total Balance 070 667 8845 150 Intake, IV 896 183 5310 150 Intake, Oral 0 Number 1 Bowel Movements Patient 88 lb 87 lb 0.02 oz Weight Weight Bed scale Estimated Measurement Method Physical Exam: Gen - thin elderly woman resting comfortably in bed in nad Abd - mild distended and tympanic to percussion throughout, well-healed midline incision and mild tenderness in the left lower quadrant and suprapubic region, no rebound or guarding noted Current Medications: Current Medications Sig/Janusz Start time Last Medication Dose Route Stop Time Status Admin Acetaminophen 1,000 MG .STK-MED ONE 10/30 0439 DC IV 10/30 0440 Acetaminophen 1,000 MG Q6P PRN 10/29 1745 DC 10/30 N/A 1 UNIT IV 0440 Acetaminophen 1,000 MG ONCE ONE 10/29 1230 DC 10/29 N/A 1 UNIT IV 10/29 1244 1238 Albuterol Sulfate 2 PUF Q4 HRS NEEDED PRN 10/29 2030 AC INH Aspirin Buffered 81 MG DAILY 10/30 0900 AC 10/30 PO 1109 Atorvastatin Calcium 40 MG DAILY 10/29 1742 AC 10/30 PO 1111 Azithromycin 250 MG Q48H 10/30 0900 AC 10/30 PO 1110 Budesonide/ 2 PUF BID 10/29 2100 CAN Formoterol Fumarate INH Budesonide/ 2 PUF BID 10/29 2100 AC 10/30 Formoterol Fumarate INH 1109 Ceftriaxone Sodium 0 .STK-MED ONE 10/29 1757 DC .ROUTE Ceftriaxone Sodium 1,000 MG DAILY 10/29 1730 CAN IV Ceftriaxone Sodium 1,000 MG DAILY 10/29 1726 AC 10/30 IV 1108 Cholecalciferol 1,000 IU DAILY 10/30 0900 AC 10/30 PO 1110 Dextrose/Sodium 1,000 ML Q13H 10/29 2215 AC 10/29 Chloride IV 2226 Diltiazem HCl 240 MG DAILY 10/30 0900 AC 10/30 PO 1109 Enoxaparin Sodium 0 .STK-MED ONE 10/29 1735 CAN SC Enoxaparin Sodium 40 MG DAILY 10/29 1721 DC 10/29 SC 1735 Fluticasone 2 SPRAY DAILY 10/30 0900 AC Propionate OSCAR Heparin Sodium 5,000 UNIT Q8 10/29 2200 AC 10/30 (Porcine) SC 0441 Lisinopril 10 MG DAILY 10/30 0900 AC 10/30 PO 1109 Metronidazole 500 MG IQ8 10/30 0000 CAN N/A 1 UNIT IV Metronidazole 500 MG IQ8 10/29 1730 AC 10/30 N/A 1 UNIT IV 0805 Multivitamins 1 TAB DAILY 10/30 0900 AC 10/30 Therapeutic PO 1109 Pantoprazole Sodium 0 .STK-MED ONE 10/29 1735 DC IV Pantoprazole Sodium 40 MG DAILY 10/29 1720 AC 10/30 IV 1109 Prednisone 5 MG Q48 10/31 0900 AC PO Sodium Chloride 1,000 ML Q13H 10/29 1730 DC 10/29 IV 10/30 1929 2008 Sodium Chloride 1,000 ML ONCE ONE 10/29 1230 DC 10/29 IV 10/29 1909 1238 Tiotropium [place] 1 PUF DAILY 10/30 0900 CAN INH Tiotropium [place] 1 PUF DAILY 10/29 2012 AC 10/30 INH 1110 Results Last 48 Hours of Labs: Laboratory Tests 10/30 0630 Chemistry Sodium (137 - 145 mmol/L) 140 Potassium (3.5 - 5.1 mmol/L) 3.4 L Chloride (98 - 107 mmol/L) 103 Carbon Dioxide (22 - 30 mmol/L) 30 Anion Gap (5 - 16) 7 BUN (7 - 17 mg/dL) 20 H Creatinine (0.5 - 1.0 mg/dL) 0.7 Estimated GFR (>60 ml/min) > 60 BUN/Creatinine Ratio (7 - 25 %) 28.6 H Hematology CBC w Diff MAN DIFF ORDERED WBC (4.8 - 10.8 /CUMM) 6.3 RBC (4.20 - 5.40 /CUMM) 3.44 L Hgb (12.0 - 16.0 G/DL) 10.4 L Hct (37 - 47 %) 30.8 L MCV (81.0 - 99.0 FL) 89.7 MCH (27.0 - 31.0 PG) 30.2 MCHC (33.0 - 37.0 G/DL) 33.7 RDW (11.5 - 14.5 %) 14.2 Plt Count (130 - 400 /CUMM) 136 MPV (7.4 - 10.4 FL) 7.4 Gran % (42.2 - 75.2 %) 92.7 H Lymphocytes % (20.5 - 51.1 %) 2.7 L Monocytes % (1.7 - 9.3 %) 2.7 Eosinophils % (0 - 5 %) 1.8 Basophils % (0.0 - 2.0 %) 0.1 Absolute Granulocytes (1.4 - 6.5 /CUMM) 5.8 Segmented Neutrophils (42.2 - 75.2 %) 73 Band Neutrophils (0.0 - 5.0 %) 20 H Absolute Lymphocytes (1.2 - 3.4 /CUMM) 0.2 L Lymphocytes (20.5 - 51.1 %) 3 L Monocytes (1.7 - 9.3 %) 2 Absolute Monocytes (0.10 - 0.60 /CUMM) 0.2 Eosinophils (0 - 5.0 %) 1 Absolute Eosinophils (0.0 - 0.7 /CUMM) 0.1 Basophils (0.0 - 2.0 %) 1 Absolute Basophils (0.0 - 0.2 /CUMM) 0 Platelet Estimate (ADEQUATE) VERIFIED BY SMEAR Poikilocytosis 1+ Ovalocytes 1+ 10/29 10/29 1813 1530 Chemistry Lactic Acid (0.7 - 2.1 mmol/L) 0.8 Urines Urine Color (YEL,AMB,STR) YEL Urine Clarity (CLEAR) CLEAR Urine pH (5.0 - 8.0) 6.5 Ur Specific [place] (1.001 - 1.035) 1.010 Urine Protein (NEG,<30 MG/DL) TRACE H Urine Ketones (NEG) NEG Urine Nitrite (NEG) NEG Urine Bilirubin (NEG) NEG Urine Urobilinogen (0.1 - 1.0 EU/dl) 0.2 Ur Leukocyte Esterase (NEG) NEG Ur Microscopic SEDIMENT EXAMINED Urine RBC (0 - 5 /HPF) 1-3 Urine WBC (0 - 2 /HPF) RARE Ur Epithelial Cells (NONE,FEW) RARE Urine Bacteria (NEG/NONE) RARE H Urine Hemoglobin (NEG) MOD H Urine Glucose (N MG/DL) NEG 10/29 10/29 1229 1223 Chemistry Sodium (137 - 145 mmol/L) 138 Potassium (3.5 - 5.1 mmol/L) 4.1 Chloride (98 - 107 mmol/L) 93 L Carbon Dioxide (22 - 30 mmol/L) 37 H Anion Gap (5 - 16) 9 BUN (7 - 17 mg/dL) 35 H Creatinine (0.5 - 1.0 mg/dL) 1.1 H Estimated GFR (>60 ml/min) 47 L BUN/Creatinine Ratio (7 - 25 %) 31.8 H Glucose (65 - 99 mg/dL) 143 H Lactic Acid (0.7 - 2.1 mmol/L) 2.9 H Calcium (8.4 - 10.2 mg/dL) 9.3 Total Bilirubin (0.2 - 1.3 mg/dL) 0.6 AST (14 - 36 U/L) 25 ALT (9 - 52 U/L) 34 Alkaline Phosphatase (<127 U/L) 128 H Lactate Dehydrogenase (313 - 618 U/L) 505 Troponin I (< 0.11 ng/ml) < 0.01 Total Protein (6.3 - 8.2 g/dL) 6.0 L Albumin (3.5 - 5.0 g/dL) 3.4 L Globulin (1.9 - 4.2 gm/dL) 2.6 Albumin/Globulin Ratio (1.1 - 2.2 %) 1.3 Amylase (30 - 110 U/L) 55 Lipase (23 - 300 U/L) 41 Hematology CBC w Diff MAN DIFF ORDERED WBC (4.8 - 10.8 /CUMM) 12.9 H RBC (4.20 - 5.40 /CUMM) 3.95 L Hgb (12.0 - 16.0 G/DL) 11.9 L Hct (37 - 47 %) 35.5 L MCV (81.0 - 99.0 FL) 89.7 MCH (27.0 - 31.0 PG) 30.0 MCHC (33.0 - 37.0 G/DL) 33.5 RDW (11.5 - 14.5 %) 14.2 Plt Count (130 - 400 /CUMM) 187 MPV (7.4 - 10.4 FL) 6.9 L Gran % (42.2 - 75.2 %) 95.3 H Lymphocytes % (20.5 - 51.1 %) 2.0 L Monocytes % (1.7 - 9.3 %) 2.5 Eosinophils % (0 - 5 %) 0.1 Basophils % (0.0 - 2.0 %) 0.1 Absolute Granulocytes (1.4 - 6.5 /CUMM) 12.3 H Segmented Neutrophils (42.2 - 75.2 %) 76 H Band Neutrophils (0.0 - 5.0 %) 21 H Absolute Lymphocytes (1.2 - 3.4 /CUMM) 0.3 L Lymphocytes (20.5 - 51.1 %) 1 L Monocytes (1.7 - 9.3 %) 2 Absolute Monocytes (0.10 - 0.60 /CUMM) 0.3 Absolute Eosinophils (0.0 - 0.7 /CUMM) 0 Absolute Basophils (0.0 - 0.2 /CUMM) 0 Platelet Estimate (ADEQUATE) ADEQUATE Normochromic RBCs VERIFIED Anisocytosis 1+ Urines Urine Color Cancelled Urine Clarity Cancelled Urine pH Cancelled Ur Specific [place] Cancelled Urine Protein Cancelled Urine Ketones Cancelled Urine Nitrite Cancelled Urine Bilirubin Cancelled Urine Urobilinogen Cancelled Ur Leukocyte Esterase Cancelled Ur Microscopic Cancelled Urine Hemoglobin Cancelled Urine Glucose Cancelled Assessment/Plan Assessment/Plan 87 F with probable ischemic colitis, improved with IV hydration and IV antibiotics Continue conservative management with fluid resuscitation and broad-spectrum IV antibiotics. Advance diet as tolerated. Surgery will continue to follow with serial abdominal exam. No surgical intervention required at this time. Core Measures Venous Thromboembolism VTE Risk Factors Age>40 No Mechanical VTE Prophylaxis d/t N/A MechProphylax Ordered No VTE Pharm Prophylaxis d/t NA PharmProphylax ordered
--- NOTE | 2017-10-30 13:02 | PN- General Surgery ---
Subjective Subjective: feels better. passing gas now. started on clears. not much intake. pain better but still present. Objective Vital Signs and I&Os Vital Signs Date Time Temp Pulse Resp B/P B/P Pulse O2 O2 Flow FiO2 Mean Ox Delivery Rate 10/30 0559 98.1 82 22 148/68 96 Nasal 3.0L Cannula 10/30 0000 99 Nasal 3.0L Cannula 10/29 2114 98.3 72 18 140/62 99 10/29 2022 Nasal 3.0L Cannula 10/29 193 91 Nasal 2.0L Cannula 10/29 1914 98.4 83 18 138/68 93 10/29 1845 97.8 76 18 122/58 96 Room Air 10/29 1743 98.2 78 19 147/68 94 Nasal 1.5L Cannula 10/29 1535 97.8 76 18 127/59 96 Nasal 1.5L Cannula 10/29 1436 97.4 70 20 96/49 96 Room Air Intake & Output 10/30 1600 10/30 0800 10/30 0000 10/29 1600 10/29 0810/29 0000 Intake Total 607 459 0934 150 Output Total Balance 318 357 6911 150 Intake, IV 510 582 8372 150 Intake, Oral 0 Number 1 Bowel Movements Patient 88 lb 87 lb 0.02 oz Weight Weight Bed scale Estimated Measurement Method Physical Exam: gen; underweight, nad. a/o x 3 heent; anicteric, perrl, eomi abd; mild distension, tender llq with guarding. Current Medications: Current Medications Sig/Janusz Start time Last Medication Dose Route Stop Time Status Admin Acetaminophen 1,000 MG .STK-MED ONE 10/30 0439 DC IV 10/30 0440 Acetaminophen 1,000 MG Q6P PRN 10/29 1744 DC 10/30 N/A 1 UNIT IV 0440 Albuterol Sulfate 2 PUF Q4 HRS NEEDED PRN 10/29 2029 AC INH Aspirin Buffered 81 MG DAILY 10/30 899 AC 10/30 PO 1109 Atorvastatin Calcium 40 MG DAILY 10/29 174 AC 10/30 PO 1111 Azithromycin 250 MG Q48H 10/30 899 AC 10/30 PO 1110 Budesonide/ 2 PUF BID 10/29 2100 CAN Formoterol Fumarate INH Budesonide/ 2 PUF BID 10/29 2099 AC 10/30 Formoterol Fumarate INH 1109 Ceftriaxone Sodium 0 .STK-MED ONE 10/29 1757 DC .ROUTE Ceftriaxone Sodium 1,000 MG DAILY 10/29 1730 CAN IV Ceftriaxone Sodium 1,000 MG DAILY 10/29 1726 AC 10/30 IV 1108 Cholecalciferol 1,000 IU DAILY 10/30 0900 AC 10/30 PO 1110 Dextrose/Sodium 1,000 ML Q13H 10/29 2215 AC 10/29 Chloride IV 2226 Diltiazem HCl 240 MG DAILY 10/30 0900 AC 10/30 PO 1109 Enoxaparin Sodium 0 .STK-MED ONE 10/29 1735 CAN SC Enoxaparin Sodium 40 MG DAILY 10/29 1721 DC 10/29 SC 1735 Fluticasone 2 SPRAY DAILY 10/30 0900 AC Propionate OSCAR Heparin Sodium 5,000 UNIT Q8 10/29 2200 AC 10/30 (Porcine) SC 0441 Lisinopril 10 MG DAILY 10/30 0900 AC 10/30 PO 1109 Metronidazole 500 MG IQ8 10/30 0000 CAN N/A 1 UNIT IV Metronidazole 500 MG IQ8 10/29 1730 AC 10/30 N/A 1 UNIT IV 0805 Multivitamins 1 TAB DAILY 10/30 0900 AC 10/30 Therapeutic PO 1109 Pantoprazole Sodium 0 .STK-MED ONE 10/29 1735 DC IV Pantoprazole Sodium 40 MG DAILY 10/29 1720 AC 10/30 IV 1109 Prednisone 5 MG Q48 10/31 0900 AC PO Sodium Chloride 1,000 ML Q13H 10/29 1730 DC 10/29 IV 10/30 1929 2008 Sodium Chloride 1,000 ML ONCE ONE 10/29 1230 DC 10/29 IV 10/29 1909 1238 Tiotropium [place] 1 PUF DAILY 10/30 0900 CAN INH Tiotropium [place] 1 PUF DAILY 10/29 2012 AC 10/30 INH 1110 Results Last 48 Hours of Labs: Laboratory Tests 10/30 0630 Chemistry Sodium (137 - 145 mmol/L) 140 Potassium (3.5 - 5.1 mmol/L) 3.4 L Chloride (98 - 107 mmol/L) 103 Carbon Dioxide (22 - 30 mmol/L) 30 Anion Gap (5 - 16) 7 BUN (7 - 17 mg/dL) 20 H Creatinine (0.5 - 1.0 mg/dL) 0.7 Estimated GFR (>60 ml/min) > 60 BUN/Creatinine Ratio (7 - 25 %) 28.6 H Hematology CBC w Diff MAN DIFF ORDERED WBC (4.8 - 10.8 /CUMM) 6.3 RBC (4.20 - 5.40 /CUMM) 3.44 L Hgb (12.0 - 16.0 G/DL) 10.4 L Hct (37 - 47 %) 30.8 L MCV (81.0 - 99.0 FL) 89.7 MCH (27.0 - 31.0 PG) 30.2 MCHC (33.0 - 37.0 G/DL) 33.7 RDW (11.5 - 14.5 %) 14.2 Plt Count (130 - 400 /CUMM) 136 MPV (7.4 - 10.4 FL) 7.4 Gran % (42.2 - 75.2 %) 92.7 H Lymphocytes % (20.5 - 51.1 %) 2.7 L Monocytes % (1.7 - 9.3 %) 2.7 Eosinophils % (0 - 5 %) 1.8 Basophils % (0.0 - 2.0 %) 0.1 Absolute Granulocytes (1.4 - 6.5 /CUMM) 5.8 Segmented Neutrophils (42.2 - 75.2 %) 73 Band Neutrophils (0.0 - 5.0 %) 20 H Absolute Lymphocytes (1.2 - 3.4 /CUMM) 0.2 L Lymphocytes (20.5 - 51.1 %) 3 L Monocytes (1.7 - 9.3 %) 2 Absolute Monocytes (0.10 - 0.60 /CUMM) 0.2 Eosinophils (0 - 5.0 %) 1 Absolute Eosinophils (0.0 - 0.7 /CUMM) 0.1 Basophils (0.0 - 2.0 %) 1 Absolute Basophils (0.0 - 0.2 /CUMM) 0 Platelet Estimate (ADEQUATE) VERIFIED BY SMEAR Poikilocytosis 1+ Ovalocytes 1+ 10/29 10/29 1813 1530 Chemistry Lactic Acid (0.7 - 2.1 mmol/L) 0.8 Urines Urine Color (YEL,AMB,STR) YEL Urine Clarity (CLEAR) CLEAR Urine pH (5.0 - 8.0) 6.5 Ur Specific [place] (1.001 - 1.035) 1.010 Urine Protein (NEG,<30 MG/DL) TRACE H Urine Ketones (NEG) NEG Urine Nitrite (NEG) NEG Urine Bilirubin (NEG) NEG Urine Urobilinogen (0.1 - 1.0 EU/dl) 0.2 Ur Leukocyte Esterase (NEG) NEG Ur Microscopic SEDIMENT EXAMINED Urine RBC (0 - 5 /HPF) 1-3 Urine WBC (0 - 2 /HPF) RARE Ur Epithelial Cells (NONE,FEW) RARE Urine Bacteria (NEG/NONE) RARE H Urine Hemoglobin (NEG) MOD H Urine Glucose (N MG/DL) NEG 10/29 10/29 1229 1223 Chemistry Sodium (137 - 145 mmol/L) 138 Potassium (3.5 - 5.1 mmol/L) 4.1 Chloride (98 - 107 mmol/L) 93 L Carbon Dioxide (22 - 30 mmol/L) 37 H Anion Gap (5 - 16) 9 BUN (7 - 17 mg/dL) 35 H Creatinine (0.5 - 1.0 mg/dL) 1.1 H Estimated GFR (>60 ml/min) 47 L BUN/Creatinine Ratio (7 - 25 %) 31.8 H Glucose (65 - 99 mg/dL) 143 H Lactic Acid (0.7 - 2.1 mmol/L) 2.9 H Calcium (8.4 - 10.2 mg/dL) 9.3 Total Bilirubin (0.2 - 1.3 mg/dL) 0.6 AST (14 - 36 U/L) 25 ALT (9 - 52 U/L) 34 Alkaline Phosphatase (<127 U/L) 128 H Lactate Dehydrogenase (313 - 618 U/L) 505 Troponin I (< 0.11 ng/ml) < 0.01 Total Protein (6.3 - 8.2 g/dL) 6.0 L Albumin (3.5 - 5.0 g/dL) 3.4 L Globulin (1.9 - 4.2 gm/dL) 2.6 Albumin/Globulin Ratio (1.1 - 2.2 %) 1.3 Amylase (30 - 110 U/L) 55 Lipase (23 - 300 U/L) 41 Hematology CBC w Diff MAN DIFF ORDERED WBC (4.8 - 10.8 /CUMM) 12.9 H RBC (4.20 - 5.40 /CUMM) 3.95 L Hgb (12.0 - 16.0 G/DL) 11.9 L Hct (37 - 47 %) 35.5 L MCV (81.0 - 99.0 FL) 89.7 MCH (27.0 - 31.0 PG) 30.0 MCHC (33.0 - 37.0 G/DL) 33.5 RDW (11.5 - 14.5 %) 14.2 Plt Count (130 - 400 /CUMM) 187 MPV (7.4 - 10.4 FL) 6.9 L Gran % (42.2 - 75.2 %) 95.3 H Lymphocytes % (20.5 - 51.1 %) 2.0 L Monocytes % (1.7 - 9.3 %) 2.5 Eosinophils % (0 - 5 %) 0.1 Basophils % (0.0 - 2.0 %) 0.1 Absolute Granulocytes (1.4 - 6.5 /CUMM) 12.3 H Segmented Neutrophils (42.2 - 75.2 %) 76 H Band Neutrophils (0.0 - 5.0 %) 21 H Absolute Lymphocytes (1.2 - 3.4 /CUMM) 0.3 L Lymphocytes (20.5 - 51.1 %) 1 L Monocytes (1.7 - 9.3 %) 2 Absolute Monocytes (0.10 - 0.60 /CUMM) 0.3 Absolute Eosinophils (0.0 - 0.7 /CUMM) 0 Absolute Basophils (0.0 - 0.2 /CUMM) 0 Platelet Estimate (ADEQUATE) ADEQUATE Normochromic RBCs VERIFIED Anisocytosis 1+ Urines Urine Color Cancelled Urine Clarity Cancelled Urine pH Cancelled Ur Specific [place] Cancelled Urine Protein Cancelled Urine Ketones Cancelled Urine Nitrite Cancelled Urine Bilirubin Cancelled Urine Urobilinogen Cancelled Ur Leukocyte Esterase Cancelled Ur Microscopic Cancelled Urine Hemoglobin Cancelled Urine Glucose Cancelled Assessment/Plan Assessment/Plan Improved colitis, ischemic vs infectious with IV abx and bowel rest. There was significant ileus on CT and there is persistent distenstion. Would not advance diet until her tenderness and distension improves.
[2017-10-30 15:16] VITALS: BP 120/50
[2017-10-30 22:28] VITALS: BP 158/74
[2017-10-31 06:05] VITALS: BP 162/72
--- NOTE | 2017-10-31 08:25 | PN- Housestaff ---
Greyson VILLASENOR,[facility] 10/31/17 0825: Subjective Follow-up For: Ischemic colitis Subjective: No acute events overnight. Tolerating clear liquid diet well. Continues to have 4 quadrant pain. The patient states that she is immune passing her potassium pills through her stool as she received some. Review of Systems Constitutional: Reports: see HPI. Objective Last 24 Hrs of Vital Signs/I&O Vital Signs Date Time Temp Pulse Resp B/P B/P Pulse O2 O2 Flow FiO2 Mean Ox Delivery Rate 10/31 2124 97.6 76 19 158/80 99 Nasal 3.0L Cannula 10/31 1600 Nasal 3.0L Cannula 10/31 1538 98.1 84 20 124/66 99 Room Air 10/31 0943 68 148/70 10/31 0800 94 Nasal 3.0L Cannula 10/31 0605 98.0 70 20 162/72 99 10/31 0000 Nasal 3.0L Cannula Intake & Output 10/31 1600 10/31 0800 10/31 0000 Intake Total 8334 510 5327 Output Total 650 1000 300 Balance 650 -500 825 Intake, IV 500 450 525 Intake, Oral 800 50 600 Number 0 0 Bowel Movements Output, Urine 650 1000 300 Physical Exam General Appearance: Alert, Oriented X3, Cooperative Cardiovascular: Regular Rate, Normal S1, Normal S2 Lungs: Clear to Auscultation, Normal Air Movement Abdomen: tense distended abdomen, left lower quadrant tenderness Extremities: 2+ radial pulses Current Medications: Current Medications Sig/Janusz Start time Last Medication Dose Route Stop Time Status Admin Acetaminophen 650 MG ONCE ONE 10/31 2099 DC 10/31 PO 10/31 2100 210 Acetaminophen 1,000 MG ONCE ONE 10/31 0215 DC 10/31 N/A 1 UNIT IV 10/31 022 0215 Acetaminophen 80 MG ONCE ONE 10/31 0145 CAN PO 10/31 0146 Albuterol Sulfate 2 PUF Q4 HRS NEEDED PRN 10/29 2030 AC INH Aspirin Buffered 81 MG DAILY 10/30 09 AC 10/31 PO 0944 Atorvastatin Calcium 40 MG DAILY 10/29 1742 AC 10/31 PO 0943 Azithromycin 250 MG Q48H 10/30 09 AC 10/30 PO 1110 Budesonide/ 2 PUF BID 10/29 2100 AC 10/31 Formoterol Fumarate INH 2055 Ceftriaxone Sodium 1,000 MG DAILY 10/29 1726 AC 10/31 IV 0943 Cholecalciferol 1,000 IU DAILY 10/30 09 AC 10/31 PO 0943 Dextrose/Sodium 1,000 ML Q13H 10/29 2214 AC 10/31 Chloride IV 0623 Diltiazem HCl 240 MG DAILY 10/30 09 AC 10/31 PO 0944 Fluticasone 2 SPRAY DAILY 10/30 899 AC Propionate OSCAR Heparin Sodium 5,000 UNIT Q8 10/29 2200 AC 10/31 (Porcine) SC 2054 Lisinopril 10 MG DAILY 10/30 899 AC 10/31 PO 0943 Metronidazole 500 MG IQ8 10/29 1730 DC 10/31 N/A 1 UNIT IV 0736 Multivitamins 1 TAB DAILY 10/30 899 AC 10/31 Therapeutic PO 0943 Pantoprazole Sodium 40 MG DAILY 10/29 1720 DC 10/31 IV 0943 Prednisone 5 MG Q48 10/31 899 AC 10/31 PO 0943 Tiotropium [place] 1 PUF DAILY 10/30 2011 AC 10/31 INH 0943 Last 24 Hrs of Lab/Sammy Results Last 24 Hrs of Labs/Mics: Laboratory Tests 10/31/17 0615: Anion Gap 9, Estimated GFR > 60, BUN/Creatinine Ratio 15.0, CBC w Diff MAN DIFF ORDERED, RBC 3.55 L, MCV 89.2, MCH 30.2, MCHC 33.9, RDW 13.8, MPV 7.4, Gran % 87.4 H, Lymphocytes % 4.9 L, Monocytes % 3.9, Eosinophils % 3.5, Basophils % 0.3, Absolute Granulocytes 4.1, Segmented Neutrophils 78 H, Band Neutrophils 11 H, Absolute Lymphocytes 0.2 L, Lymphocytes 4 L, Monocytes 4, Absolute Monocytes 0.2, Eosinophils 3, Absolute Eosinophils 0.2, Absolute Basophils 0, Platelet Estimate VERIFIED BY SMEAR, Poikilocytosis 1+, Ovalocytes 1+, [place] Cells 1+ Assessment/Plan Assessment: 87-year-old female with past medical history of abdominal aortic aneurysms, hypertension, hyperlipidemia, and COPD on 3 L home oxygen followed by Dr. Leach who presented with abdominal pain. Problem list: 1. Ischemic colitis 2. Leukocytosis with bandemia 3. Lactic acidosis 4. Normocytic anemia #Ischemic colitis: Patient presented with abdominal pain, vomiting, and diarrhea as well as CT imaging concerning for ischemic colitis. She has multiple risk factors for ischemic colitis. She also received recent antibiotics (azithromycin ), and may have C. difficile versus infectious colitis. Lactic acidosis have trended down. Overnight her symptoms have improved with IV fluid hydration and acetaminophen. Surgery consulted and does not believe there is any urgent need for surgical intervention. -Stopped IV Protonix and Flagyl -Advanced to a low fiber diet -Stool culture/C. difficile -Monitor lytes and give IV potassium as needed -Appreciate gastroenterology consult -Appreciate surgery recommendations -IV fluid hydration -Continue ceftriaxone #Leukocytosis with bandemia -Currently no longer having leukocytosis but continues to have bandemia -cont to monitor #Normocytic anemia: Patient reports that she had blood in her diarrhea. Not hemodynamically significant at this point. -Continue to monitor -Type and screen #Chronic medical problem: -Continue home medications DVT prophylaxis with enoxaparin Nothing by mouth Full code Problem List: 1. Ischemic colitis Pain Ratin Pain Location: LLQ Pain Goal: Pain 4 or less Pain Plan: pathway Tomorrow's Labs & Rationales: cbc Adriana Carranza 10/31/17 1254: Attending MD Review Statement Attending Statement Attending MD Statement: examined this patient, discuss w/resident/PA/[employer], agreed w/resident/PA/[employer], discussed with family, reviewed EMR data (avail), discussed with nursing, discussed with case mgmt, reviewed images, amended to note Attending Assessment/Plan: Patient admitted to inpatient medical services for abdominal pain infectious related with differential of ischemia colitis in high risk patient and possible ileus. Negative Amylase. LDH. Patient says she still c/o abdominal pain but overall clinical improvement. Passing flatus and small bowel movement. WBC with improvement. Advance diet as tolerated to low fibre, IVF. GI and surgery recommend continue supportive care. anticipate dc planning as her clinical condition improves.
[2017-10-31 08:27] LABS: ABSOLUTE BASOPHIL COUNT 0 /CUMM (0.0-0.2); ABSOLUTE EOSINOPHIL COUNT 0.2 /CUMM (0.0-0.7); ABSOLUTE GRANULOCYTE CT 4.1 /CUMM (1.4-6.5); ABSOLUTE LYMPH COUNT 0.2 /CUMM (1.2-3.4); ABSOLUTE MONOCYTE COUNT 0.2 /CUMM (0.10-0.60); BASOPHIL % 0.3 % (0.0-2.0); EOSINOPHIL % 3.5 % (0-5); GRANULOCYTE % 87.4 % (42.2-75.2); HEMATOCRIT 31.7 % (37-47); MEAN CORPUSCULAR HGB 30.2 PG (27.0-31.0); MEAN CORPUSCULAR HGB CONC 33.9 G/DL (33.0-37.0); MEAN CORPUSCULAR VOLUME 89.2 FL (81.0-99.0); MEAN PLATELET VOLUME 7.4 FL (7.4-10.4); PLATELET COUNT 149 /CUMM (130-400); RBC DISTRIBUTION WIDTH 13.8 % (11.5-14.5); RED BLOOD CELL CT 3.55 /CUMM (4.20-5.40); WHITE BLOOD CELL COUNT 4.7 /CUMM (4.8-10.8)
--- NOTE | 2017-10-31 10:46 | PN- General Surgery ---
See Addendum Subjective Subjective: Patient seen and evaluated. No acute events overnight. Abdominal pain is about the same as yesterday. Reports passing much flatus and having very small ball- like stools. tolerating clear diet without problems. Reports baselines dyspnea and becomes sob when talking to much. Still is not taking much in PO. Objective Vital Signs and I&Os Vital Signs Date Time Temp Pulse Resp B/P B/P Pulse O2 O2 Flow FiO2 Mean Ox Delivery Rate 10/31 0943 68 148/70 10/31 0800 94 Nasal 3.0L Cannula 10/31 0605 98.0 70 20 162/72 99 10/31 0000 Nasal 3.0L Cannula 10/30 2228 97.6 80 22 158/74 96 Nasal 3.0L Cannula 10/30 1600 Nasal 3.0L Cannula 10/30 1516 98.6 75 20 120/50 99 Nasal 3.0L Cannula Intake & Output 10/31 1600 10/31 0800 10/31 0000 10/30 1600 10/30 0800 10/30 0000 Intake Total 500 1125 1300 600 150 Output Total 1000 300 950 Balance -500 825 350 600 150 Intake, IV 450 525 600 600 150 Intake, Oral 50 600 700 0 Number 0 1 Bowel Movements Output, Urine 1000 300 950 Patient 88 lb Weight Weight Bed scale Measurement Method Physical Exam: Gen - thin/frail elderly female laying in bed comfortable, answering questions, sob if talks to much, nad Abdomen: mild distention and tympanic throughout, per patient this is improved, well healed midline incision and mild tenderness in the left lower quadrant and suprapubic region, no rebound or guarding noted Current Medications: Current Medications Sig/Janusz Start time Last Medication Dose Route Stop Time Status Admin Acetaminophen 1,000 MG ONCE ONE 10/31 0215 DC 10/31 N/A 1 UNIT IV 10/31 228 0215 Acetaminophen 80 MG ONCE ONE 10/31 0145 CAN PO 10/31 0146 Albuterol Sulfate 2 PUF Q4 HRS NEEDED PRN 10/29 2030 AC INH Aspirin Buffered 81 MG DAILY 10/30 09 AC 10/31 PO 0944 Atorvastatin Calcium 40 MG DAILY 10/29 1742 AC 10/31 PO 0943 Azithromycin 250 MG Q48H 10/30 09 AC 10/30 PO 1110 Budesonide/ 2 PUF BID 10/29 2100 AC 10/31 Formoterol Fumarate INH 0943 Ceftriaxone Sodium 1,000 MG DAILY 10/29 1726 AC 10/31 IV 0943 Cholecalciferol 1,000 IU DAILY 10/30 0900 AC 10/31 PO 0943 Dextrose/Sodium 1,000 ML Q13H 10/29 2215 AC 10/31 Chloride IV 0623 Diltiazem HCl 240 MG DAILY 10/30 0900 AC 10/31 PO 0944 Fluticasone 2 SPRAY DAILY 10/30 0900 AC Propionate OSCAR Heparin Sodium 5,000 UNIT Q8 10/29 2200 AC 10/31 (Porcine) SC 0620 Lisinopril 10 MG DAILY 10/30 0900 AC 10/31 PO 0943 Metronidazole 500 MG IQ8 10/29 1730 AC 10/31 N/A 1 UNIT IV 0736 Multivitamins 1 TAB DAILY 10/30 09 AC 10/31 Therapeutic PO 0943 Pantoprazole Sodium 40 MG DAILY 10/29 1720 AC 10/31 IV 0943 Potassium Chloride 40 MEQ ONCE ONE 10/30 1700 DC 10/30 PO 10/30 1701 1727 Prednisone 5 MG Q48 10/31 09 AC 10/31 PO 0943 Tiotropium [place] 1 PUF DAILY 10/30 2011 AC 10/31 INH 0943 Results Last 48 Hours of Labs: Laboratory Tests 10/31 10/30 0615 0630 Chemistry Sodium (137 - 145 mmol/L) 142 140 Potassium (3.5 - 5.1 mmol/L) 3.7 3.4 L Chloride (98 - 107 mmol/L) 102 103 Carbon Dioxide (22 - 30 mmol/L) 31 H 30 Anion Gap (5 - 16) 9 7 BUN (7 - 17 mg/dL) 9 20 H Creatinine (0.5 - 1.0 mg/dL) 0.6 0.7 Estimated GFR (>60 ml/min) > 60 > 60 BUN/Creatinine Ratio (7 - 25 %) 15.0 28.6 H Hematology CBC w Diff MAN DIFF ORDERED MAN DIFF ORDERED WBC (4.8 - 10.8 /CUMM) 4.7 L 6.3 RBC (4.20 - 5.40 /CUMM) 3.55 L 3.44 L Hgb (12.0 - 16.0 G/DL) 10.7 L 10.4 L Hct (37 - 47 %) 31.7 L 30.8 L MCV (81.0 - 99.0 FL) 89.2 89.7 MCH (27.0 - 31.0 PG) 30.2 30.2 MCHC (33.0 - 37.0 G/DL) 33.9 33.7 RDW (11.5 - 14.5 %) 13.8 14.2 Plt Count (130 - 400 /CUMM) 149 136 MPV (7.4 - 10.4 FL) 7.4 7.4 Gran % (42.2 - 75.2 %) 87.4 H 92.7 H Lymphocytes % (20.5 - 51.1 %) 4.9 L 2.7 L Monocytes % (1.7 - 9.3 %) 3.9 2.7 Eosinophils % (0 - 5 %) 3.5 1.8 Basophils % (0.0 - 2.0 %) 0.3 0.1 Absolute Granulocytes (1.4 - 6.5 /CUMM) 4.1 5.8 Segmented Neutrophils (42.2 - 75.2 %) Pending 73 Band Neutrophils (0.0 - 5.0 %) 20 H Absolute Lymphocytes (1.2 - 3.4 /CUMM) 0.2 L 0.2 L Lymphocytes (20.5 - 51.1 %) 3 L Monocytes (1.7 - 9.3 %) 2 Absolute Monocytes (0.10 - 0.60 /CUMM) 0.2 0.2 Eosinophils (0 - 5.0 %) 1 Absolute Eosinophils (0.0 - 0.7 /CUMM) 0.2 0.1 Basophils (0.0 - 2.0 %) 1 Absolute Basophils (0.0 - 0.2 /CUMM) 0 0 Platelet Estimate (ADEQUATE) VERIFIED BY SMEAR Poikilocytosis 1+ Ovalocytes 1+ 10/29 10/29 1813 1530 Chemistry Lactic Acid (0.7 - 2.1 mmol/L) 0.8 Urines Urine Color (YEL,AMB,STR) YEL Urine Clarity (CLEAR) CLEAR Urine pH (5.0 - 8.0) 6.5 Ur Specific [place] (1.001 - 1.035) 1.010 Urine Protein (NEG,<30 MG/DL) TRACE H Urine Ketones (NEG) NEG Urine Nitrite (NEG) NEG Urine Bilirubin (NEG) NEG Urine Urobilinogen (0.1 - 1.0 EU/dl) 0.2 Ur Leukocyte Esterase (NEG) NEG Ur Microscopic SEDIMENT EXAMINED Urine RBC (0 - 5 /HPF) 1-3 Urine WBC (0 - 2 /HPF) RARE Ur Epithelial Cells (NONE,FEW) RARE Urine Bacteria (NEG/NONE) RARE H Urine Hemoglobin (NEG) MOD H Urine Glucose (N MG/DL) NEG 10/29 10/29 1229 1223 Chemistry Sodium (137 - 145 mmol/L) 138 Potassium (3.5 - 5.1 mmol/L) 4.1 Chloride (98 - 107 mmol/L) 93 L Carbon Dioxide (22 - 30 mmol/L) 37 H Anion Gap (5 - 16) 9 BUN (7 - 17 mg/dL) 35 H Creatinine (0.5 - 1.0 mg/dL) 1.1 H Estimated GFR (>60 ml/min) 47 L BUN/Creatinine Ratio (7 - 25 %) 31.8 H Glucose (65 - 99 mg/dL) 143 H Lactic Acid (0.7 - 2.1 mmol/L) 2.9 H Calcium (8.4 - 10.2 mg/dL) 9.3 Total Bilirubin (0.2 - 1.3 mg/dL) 0.6 AST (14 - 36 U/L) 25 ALT (9 - 52 U/L) 34 Alkaline Phosphatase (<127 U/L) 128 H Lactate Dehydrogenase (313 - 618 U/L) 505 Troponin I (< 0.11 ng/ml) < 0.01 Total Protein (6.3 - 8.2 g/dL) 6.0 L Albumin (3.5 - 5.0 g/dL) 3.4 L Globulin (1.9 - 4.2 gm/dL) 2.6 Albumin/Globulin Ratio (1.1 - 2.2 %) 1.3 Amylase (30 - 110 U/L) 55 Lipase (23 - 300 U/L) 41 Hematology CBC w Diff MAN DIFF ORDERED WBC (4.8 - 10.8 /CUMM) 12.9 H RBC (4.20 - 5.40 /CUMM) 3.95 L Hgb (12.0 - 16.0 G/DL) 11.9 L Hct (37 - 47 %) 35.5 L MCV (81.0 - 99.0 FL) 89.7 MCH (27.0 - 31.0 PG) 30.0 MCHC (33.0 - 37.0 G/DL) 33.5 RDW (11.5 - 14.5 %) 14.2 Plt Count (130 - 400 /CUMM) 187 MPV (7.4 - 10.4 FL) 6.9 L Gran % (42.2 - 75.2 %) 95.3 H Lymphocytes % (20.5 - 51.1 %) 2.0 L Monocytes % (1.7 - 9.3 %) 2.5 Eosinophils % (0 - 5 %) 0.1 Basophils % (0.0 - 2.0 %) 0.1 Absolute Granulocytes (1.4 - 6.5 /CUMM) 12.3 H Segmented Neutrophils (42.2 - 75.2 %) 76 H Band Neutrophils (0.0 - 5.0 %) 21 H Absolute Lymphocytes (1.2 - 3.4 /CUMM) 0.3 L Lymphocytes (20.5 - 51.1 %) 1 L Monocytes (1.7 - 9.3 %) 2 Absolute Monocytes (0.10 - 0.60 /CUMM) 0.3 Absolute Eosinophils (0.0 - 0.7 /CUMM) 0 Absolute Basophils (0.0 - 0.2 /CUMM) 0 Platelet Estimate (ADEQUATE) ADEQUATE Normochromic RBCs VERIFIED Anisocytosis 1+ Urines Urine Color Cancelled Urine Clarity Cancelled Urine pH Cancelled Ur Specific [place] Cancelled Urine Protein Cancelled Urine Ketones Cancelled Urine Nitrite Cancelled Urine Bilirubin Cancelled Urine Urobilinogen Cancelled Ur Leukocyte Esterase Cancelled Ur Microscopic Cancelled Urine Hemoglobin Cancelled Urine Glucose Cancelled Assessment/Plan Assessment/Plan This is a 87 F w/ PMHx of abdominal aortic aneurysms, hypertension, hyperlipidemia, and COPD on 3 L home oxygen with colitis, improved with IV hydration. *Will discuss patient and plan with Dr. Garcia Continue conservative management with IVFs and abx. Advance diet as tolerated when tenderness and distention improve. Surgery will continue to follow with serial abdominal exam. No surgical intervention required at this time. Core Measures Venous Thromboembolism VTE Risk Factors Age>40 No Mechanical VTE Prophylaxis d/t N/A MechProphylax Ordered No VTE Pharm Prophylaxis d/t NA PharmProphylax ordered
--- NOTE | 2017-10-31 14:12 | PN- Gastroenterology ---
Assessment/Plan GI Assessment/Recommendations: Assessment: Ms. Frias is an 87 year old female admitted with colitis of either infectious or ischemic etiology who is currently doing well with supportive care. She has remained afebrile and without any significant vomiting or diarrhea and as her pain is no longer a significant issue would recommend advancing her diet now. She is still on IV protonix and IV flagyl, but from a GI perspective I don't feel either of those are necessary. Recommendations: 1. Advance diet as tolerated 2. D/c iv protonix and IV flagyl 3. Analgesia as needed 4. Check stool studies should she have any diarrhea while an inpatient 5. If she is able to tolerate an oral diet would give consideration to discharging her home later today or in the am. I will sign off at this time, please recontact GI for any other acute GI issues that may arise while she is still admitted. Problem List: 1. Ischemic colitis 2. Colitis Subjective Subjective: pt feeling well today. tolerating a liquid diet. no significant abdominal pain , nausea, vomiting or diarrhea. Objective Vital Signs and I&Os Vital Signs Date Time Temp Pulse Resp B/P B/P Pulse O2 O2 Flow FiO2 Mean Ox Delivery Rate 10/31 0943 68 148/70 10/31 0800 94 Nasal 3.0L Cannula 10/31 0605 98.0 70 20 162/72 99 10/31 0000 Nasal 3.0L Cannula 10/30 2228 97.6 80 22 158/74 96 Nasal 3.0L Cannula 10/30 1600 Nasal 3.0L Cannula 10/30 1516 98.6 75 20 120/50 99 Nasal 3.0L Cannula Intake & Output 10/31 1600 10/31 0400 10/30 1600 10/30 0400 10/29 1600 10/29 0400 Intake Total 500 1125 3011 599 6969 150 Output Total 600 700 950 Balance -100 425 824 679 6509 150 Intake, IV 434 940 1086 150 1000 150 Intake, Oral 50 600 700 Number 0 1 Bowel Movements Output, Urine 600 700 950 Patient 88 lb 87 lb 0.02 oz Weight Weight Bed scale Estimated Measurement Method Physical Exam General Appearance: well developed/nourished, no apparent distress, comfortable Head: atraumatic, normal appearance Ears, Nose, Throat: normal pharynx Respiratory: normal breath sounds, chest non-tender, no respiratory distress Cardiovascular: regular rate/rhythm Abdomen: normal bowel sounds, soft, non-tender, no organomegaly Back: normal inspection Neurologic/Psychiatric: no motor/sensory deficits, awake, alert, oriented x 3 Current Medications: Current Medications Sig/Janusz Start time Last Medication Dose Route Stop Time Status Admin Acetaminophen 1,000 MG ONCE ONE 10/31 0215 DC 10/31 N/A 1 UNIT IV 10/31 0229 0215 Acetaminophen 80 MG ONCE ONE 10/31 0145 CAN PO 10/31 0146 Albuterol Sulfate 2 PUF Q4 HRS NEEDED PRN 10/29 2030 AC INH Aspirin Buffered 81 MG DAILY 10/30 09 AC 10/31 PO 0944 Atorvastatin Calcium 40 MG DAILY 10/29 1742 AC 10/31 PO 0943 Azithromycin 250 MG Q48H 10/30 09 AC 10/30 PO 1110 Budesonide/ 2 PUF BID 10/29 2100 AC 10/31 Formoterol Fumarate INH 0943 Ceftriaxone Sodium 1,000 MG DAILY 10/29 1726 AC 10/31 IV 0943 Cholecalciferol 1,000 IU DAILY 10/30 09 AC 10/31 PO 0943 Dextrose/Sodium 1,000 ML Q13H 10/29 2215 AC 10/31 Chloride IV 0623 Diltiazem HCl 240 MG DAILY 10/30 09 AC 10/31 PO 0944 Fluticasone 2 SPRAY DAILY 10/30 09 AC Propionate OSCAR Heparin Sodium 5,000 UNIT Q8 10/29 2200 AC 10/31 (Porcine) SC 0620 Lisinopril 10 MG DAILY 10/30 0900 AC 10/31 PO 0943 Metronidazole 500 MG IQ8 10/29 1730 AC 10/31 N/A 1 UNIT IV 0736 Multivitamins 1 TAB DAILY 10/30 09 AC 10/31 Therapeutic PO 0943 Pantoprazole Sodium 40 MG DAILY 10/29 1720 AC 10/31 IV 0943 Potassium Chloride 40 MEQ ONCE ONE 10/30 1700 DC 10/30 PO 10/30 1701 1727 Prednisone 5 MG Q48 10/31 09 AC 10/31 PO 0943 Tiotropium [place] 1 PUF DAILY 10/30 2011 AC 10/31 INH 0943 Results Pertinent Lab Results: Laboratory Tests 10/31 06 Chemistry Sodium (137 - 145 mmol/L) 142 Potassium (3.5 - 5.1 mmol/L) 3.7 Chloride (98 - 107 mmol/L) 102 Carbon Dioxide (22 - 30 mmol/L) 31 H Anion Gap (5 - 16) 9 BUN (7 - 17 mg/dL) 9 Creatinine (0.5 - 1.0 mg/dL) 0.6 Estimated GFR (>60 ml/min) > 60 BUN/Creatinine Ratio (7 - 25 %) 15.0 Hematology CBC w Diff MAN DIFF ORDERED WBC (4.8 - 10.8 /CUMM) 4.7 L RBC (4.20 - 5.40 /CUMM) 3.55 L Hgb (12.0 - 16.0 G/DL) 10.7 L Hct (37 - 47 %) 31.7 L MCV (81.0 - 99.0 FL) 89.2 MCH (27.0 - 31.0 PG) 30.2 MCHC (33.0 - 37.0 G/DL) 33.9 RDW (11.5 - 14.5 %) 13.8 Plt Count (130 - 400 /CUMM) 149 MPV (7.4 - 10.4 FL) 7.4 Gran % (42.2 - 75.2 %) 87.4 H Lymphocytes % (20.5 - 51.1 %) 4.9 L Monocytes % (1.7 - 9.3 %) 3.9 Eosinophils % (0 - 5 %) 3.5 Basophils % (0.0 - 2.0 %) 0.3 Absolute Granulocytes (1.4 - 6.5 /CUMM) 4.1 Segmented Neutrophils (42.2 - 75.2 %) 78 H Band Neutrophils (0.0 - 5.0 %) 11 H Absolute Lymphocytes (1.2 - 3.4 /CUMM) 0.2 L Lymphocytes (20.5 - 51.1 %) 4 L Monocytes (1.7 - 9.3 %) 4 Absolute Monocytes (0.10 - 0.60 /CUMM) 0.2 Eosinophils (0 - 5.0 %) 3 Absolute Eosinophils (0.0 - 0.7 /CUMM) 0.2 Absolute Basophils (0.0 - 0.2 /CUMM) 0 Platelet Estimate (ADEQUATE) VERIFIED BY SMEAR Poikilocytosis 1+ Ovalocytes 1+ Bar Cells 1+ 04/ 0630 Chemistry Sodium (137 - 145 mmol/L) 140 Potassium (3.5 - 5.1 mmol/L) 3.4 L Chloride (98 - 107 mmol/L) 103 Carbon Dioxide (22 - 30 mmol/L) 30 Anion Gap (5 - 16) 7 BUN (7 - 17 mg/dL) 20 H Creatinine (0.5 - 1.0 mg/dL) 0.7 Estimated GFR (>60 ml/min) > 60 BUN/Creatinine Ratio (7 - 25 %) 28.6 H Hematology CBC w Diff MAN DIFF ORDERED WBC (4.8 - 10.8 /CUMM) 6.3 RBC (4.20 - 5.40 /CUMM) 3.44 L Hgb (12.0 - 16.0 G/DL) 10.4 L Hct (37 - 47 %) 30.8 L MCV (81.0 - 99.0 FL) 89.7 MCH (27.0 - 31.0 PG) 30.2 MCHC (33.0 - 37.0 G/DL) 33.7 RDW (11.5 - 14.5 %) 14.2 Plt Count (130 - 400 /CUMM) 136 MPV (7.4 - 10.4 FL) 7.4 Gran % (42.2 - 75.2 %) 92.7 H Lymphocytes % (20.5 - 51.1 %) 2.7 L Monocytes % (1.7 - 9.3 %) 2.7 Eosinophils % (0 - 5 %) 1.8 Basophils % (0.0 - 2.0 %) 0.1 Absolute Granulocytes (1.4 - 6.5 /CUMM) 5.8 Segmented Neutrophils (42.2 - 75.2 %) 73 Band Neutrophils (0.0 - 5.0 %) 20 H Absolute Lymphocytes (1.2 - 3.4 /CUMM) 0.2 L Lymphocytes (20.5 - 51.1 %) 3 L Monocytes (1.7 - 9.3 %) 2 Absolute Monocytes (0.10 - 0.60 /CUMM) 0.2 Eosinophils (0 - 5.0 %) 1 Absolute Eosinophils (0.0 - 0.7 /CUMM) 0.1 Basophils (0.0 - 2.0 %) 1 Absolute Basophils (0.0 - 0.2 /CUMM) 0 Platelet Estimate (ADEQUATE) VERIFIED BY SMEAR Poikilocytosis 1+ Ovalocytes 1+ 10/29 10/29 1813 1530 Chemistry Lactic Acid (0.7 - 2.1 mmol/L) 0.8 Urines Urine Color (YEL,AMB,STR) YEL Urine Clarity (CLEAR) CLEAR Urine pH (5.0 - 8.0) 6.5 Ur Specific [place] (1.001 - 1.035) 1.010 Urine Protein (NEG,<30 MG/DL) TRACE H Urine Ketones (NEG) NEG Urine Nitrite (NEG) NEG Urine Bilirubin (NEG) NEG Urine Urobilinogen (0.1 - 1.0 EU/dl) 0.2 Ur Leukocyte Esterase (NEG) NEG Ur Microscopic SEDIMENT EXAMINED Urine RBC (0 - 5 /HPF) 1-3 Urine WBC (0 - 2 /HPF) RARE Ur Epithelial Cells (NONE,FEW) RARE Urine Bacteria (NEG/NONE) RARE H Urine Hemoglobin (NEG) MOD H Urine Glucose (N MG/DL) NEG 10/29 10/29 1229 1223 Chemistry Sodium (137 - 145 mmol/L) 138 Potassium (3.5 - 5.1 mmol/L) 4.1 Chloride (98 - 107 mmol/L) 93 L Carbon Dioxide (22 - 30 mmol/L) 37 H Anion Gap (5 - 16) 9 BUN (7 - 17 mg/dL) 35 H Creatinine (0.5 - 1.0 mg/dL) 1.1 H Estimated GFR (>60 ml/min) 47 L BUN/Creatinine Ratio (7 - 25 %) 31.8 H Glucose (65 - 99 mg/dL) 143 H Lactic Acid (0.7 - 2.1 mmol/L) 2.9 H Calcium (8.4 - 10.2 mg/dL) 9.3 Total Bilirubin (0.2 - 1.3 mg/dL) 0.6 AST (14 - 36 U/L) 25 ALT (9 - 52 U/L) 34 Alkaline Phosphatase (<127 U/L) 128 H Lactate Dehydrogenase (313 - 618 U/L) 505 Troponin I (< 0.11 ng/ml) < 0.01 Total Protein (6.3 - 8.2 g/dL) 6.0 L Albumin (3.5 - 5.0 g/dL) 3.4 L Globulin (1.9 - 4.2 gm/dL) 2.6 Albumin/Globulin Ratio (1.1 - 2.2 %) 1.3 Amylase (30 - 110 U/L) 55 Lipase (23 - 300 U/L) 41 Hematology CBC w Diff MAN DIFF ORDERED WBC (4.8 - 10.8 /CUMM) 12.9 H RBC (4.20 - 5.40 /CUMM) 3.95 L Hgb (12.0 - 16.0 G/DL) 11.9 L Hct (37 - 47 %) 35.5 L MCV (81.0 - 99.0 FL) 89.7 MCH (27.0 - 31.0 PG) 30.0 MCHC (33.0 - 37.0 G/DL) 33.5 RDW (11.5 - 14.5 %) 14.2 Plt Count (130 - 400 /CUMM) 187 MPV (7.4 - 10.4 FL) 6.9 L Gran % (42.2 - 75.2 %) 95.3 H Lymphocytes % (20.5 - 51.1 %) 2.0 L Monocytes % (1.7 - 9.3 %) 2.5 Eosinophils % (0 - 5 %) 0.1 Basophils % (0.0 - 2.0 %) 0.1 Absolute Granulocytes (1.4 - 6.5 /CUMM) 12.3 H Segmented Neutrophils (42.2 - 75.2 %) 76 H Band Neutrophils (0.0 - 5.0 %) 21 H Absolute Lymphocytes (1.2 - 3.4 /CUMM) 0.3 L Lymphocytes (20.5 - 51.1 %) 1 L Monocytes (1.7 - 9.3 %) 2 Absolute Monocytes (0.10 - 0.60 /CUMM) 0.3 Absolute Eosinophils (0.0 - 0.7 /CUMM) 0 Absolute Basophils (0.0 - 0.2 /CUMM) 0 Platelet Estimate (ADEQUATE) ADEQUATE Normochromic RBCs VERIFIED Anisocytosis 1+ Urines Urine Color Cancelled Urine Clarity Cancelled Urine pH Cancelled Ur Specific [place] Cancelled Urine Protein Cancelled Urine Ketones Cancelled Urine Nitrite Cancelled Urine Bilirubin Cancelled Urine Urobilinogen Cancelled Ur Leukocyte Esterase Cancelled Ur Microscopic Cancelled Urine Hemoglobin Cancelled Urine Glucose Cancelled
[2017-10-31 15:38] VITALS: BP 124/66
[2017-10-31 21:25] VITALS: BP 158/80
[2017-11-01 06:26] VITALS: BP 148/72
--- NOTE | 2017-11-01 06:49 | PN- Housestaff ---
See Addendum Subjective Follow-up For: Colitis Subjective: No overnight events. She tolerated low fiber diet last night well but is having some gas pain this morning. No further diarrhea. No nausea, vomiting, chest pain , she was breath. She feels ready to go home today. Review of Systems Constitutional: Reports: no symptoms. EENTM: Reports: no symptoms. Cardiovascular: Reports: no symptoms. Respiratory: Reports: no symptoms. Gastrointestinal: Reports: see HPI. Genitourinary: Reports: no symptoms. Musculoskeletal: Reports: no symptoms. Skin: Reports: no symptoms. Neurological/Psychological: Reports: no symptoms. Hematologic/Endocrine: Reports: no symptoms. Immunologic/Allergic: Reports: no symptoms. Objective Last 24 Hrs of Vital Signs/I&O Vital Signs Date Time Temp Pulse Resp B/P B/P Pulse O2 O2 Flow FiO2 Mean Ox Delivery Rate 11/01 625 97.4 72 18 148/72 99 11/01 0000 99 Nasal 3.0L Cannula 10/31 2125 97.6 76 19 158/80 99 Nasal 3.0L Cannula 10/31 1600 Nasal 3.0L Cannula 10/31 1538 98.1 84 20 124/66 99 Room Air 10/31 0943 68 148/70 10/31 0800 94 Nasal 3.0L Cannula Intake & Output 11/01 0800 11/01 0000 10/31 1600 Intake Total 393 978 2158 Output Total 500 350 650 Balance 20 500 650 Intake, IV 400 350 500 Intake, Oral 120 500 800 Number 0 Bowel Movements Output, Urine 500 350 650 Physical Exam General Appearance: Alert, Oriented X3, Cooperative, No Acute Distress Cardiovascular: Regular Rate, Normal S1, Normal S2 Lungs: Clear to Auscultation Abdomen: Normal Bowel Sounds, Soft, No Tenderness Extremities: No Edema, Normal Pulses, No Tenderness/Swelling Current Medications: Current Medications Sig/Janusz Start time Last Medication Dose Route Stop Time Status Admin Acetaminophen 650 MG ONCE ONE 10/31 2100 DC 10/31 PO 10/31 2101 2106 Albuterol Sulfate 2 PUF Q4 HRS NEEDED PRN 10/29 2030 AC INH Aspirin Buffered 81 MG DAILY 10/30 0900 AC 10/31 PO 0944 Atorvastatin Calcium 40 MG DAILY 10/29 1742 AC 10/31 PO 0943 Azithromycin 250 MG Q48H 10/30 09 AC 10/30 PO 1110 Budesonide/ 2 PUF BID 10/29 2100 AC 10/31 Formoterol Fumarate INH 2055 Ceftriaxone Sodium 1,000 MG DAILY 10/29 1726 AC 10/31 IV 0943 Cholecalciferol 1,000 IU DAILY 10/30 09 AC 10/31 PO 0943 Dextrose/Sodium 1,000 ML Q13H 10/29 2215 AC 11/01 Chloride IV 0133 Diltiazem HCl 240 MG DAILY 10/30 09 AC 10/31 PO 0944 Fluticasone 2 SPRAY DAILY 10/30 09 AC Propionate OSCAR Heparin Sodium 5,000 UNIT Q8 10/29 2200 AC 11/01 (Porcine) SC 0457 Lisinopril 10 MG DAILY 10/30 09 AC 10/31 PO 0943 Metronidazole 500 MG IQ8 10/29 1730 DC 10/31 N/A 1 UNIT IV 0736 Multivitamins 1 TAB DAILY 10/30 899 AC 10/31 Therapeutic PO 0943 Pantoprazole Sodium 40 MG DAILY 10/29 1720 DC 10/31 IV 0943 Prednisone 5 MG Q48 10/31 899 AC 10/31 PO 0943 Tiotropium [place] 1 PUF DAILY 10/30 2011 AC 10/31 INH 0943 Last 24 Hrs of Lab/Sammy Results Last 24 Hrs of Labs/Mics: Laboratory Tests 10/31/17 2358: Anion Gap 9, Estimated GFR > 60, BUN/Creatinine Ratio 23.3 Microbiology 11/01 599 STOOL: Cryptosporidium Antigen - COLB 11/01 599 STOOL: Giardia Antigen (SAMMY) - COLB 11/01 599 STOOL: Clostridium difficile Toxin A & B - COLB 11/01 599 STOOL: Stool Culture - COLB 10/31 2336 STOOL: Clostridium difficile Toxin A & B - COLB 10/31 2336 STOOL: Stool Culture - COLB Assessment/Plan Assessment: Ms. Frias is an 87-year-old female with past medical history of abdominal aortic aneurysms, hypertension, hyperlipidemia, and COPD on 3 L home oxygen followed by Dr. Leach who presented with abdominal pain. Problem list: 1. Ischemic colitis 2. Leukocytosis with bandemia 3. Lactic acidosis 4. Normocytic anemia #Ischemic colitis: Patient presented with abdominal pain, vomiting, and diarrhea as well as CT imaging concerning for ischemic colitis. She has multiple risk factors for ischemic colitis. Lactic acidosis have trended down. Surgery consulted and did not believe there is any urgent need for surgical intervention. She has had no further episodes of diarrhea and is improved. -Appreciate gastroenterology consult -Appreciate surgery recommendations -Low fiber diet -Maintain systolic blood pressure greater than 120 #Normocytic anemia: Patient reports that she had blood in her diarrhea. Not hemodynamically significant at this point. -Continue to monitor #Chronic medical problem: -Continue home medications DVT prophylaxis with enoxaparin Low fiber diet Full code Problem List: 1. Ischemic colitis Pain Ratin Pain Location: no Pain Goal: Remain pain free Pain Plan: see a/p Tomorrow's Labs & Rationales: no
--- NOTE | 2017-11-01 06:52 | Patient Discharge Instructions ---
Discharge Instructions General Discharge Information You were seen/treated for: Colitis Watch for these problems: Fever, chest pain, shortness of breath Special Instructions: Please take all medications as directed. Please follow-up with primary care. Please follow-up with gastroenterology Please stay hydrated. Please do not take your blood pressure medication, lisinopril, if your blood pressure is less than 120 systolic. Diet Continue normal diet: No Recommended Diet: Low Residue Activity Full Activity/No Limits: Yes Acute Coronary Syndrome Inclusion Criteria At DC or during hospital stay patient has or had the following: ACS DIAGNOSIS No Discharge Core Measures Meds if any: Prescribed or Continued at Discharge Meds if any: NOT Prescribed or Continued at Discharge Congestive Heart Failure Inclusion Criteria At DC or during hospital stay patient has or had the following: CHF DIAGNOSIS No Discharge Core Measures Meds if any: Prescribed or Continued at Discharge Meds if any: NOT Prescribed or Continued at Discharge Cerebrovascular accident Inclusion Criteria At DC or during hospital stay patient has or had the following: CVA/TIA Diagnosis No Discharge Core Measures Meds if any: Prescribed or Continued at Discharge Meds if any: NOT Prescribed or Continued at Discharge Venous thromboembolism Inclusion Criteria VTE Diagnosis No VTE Type NONE VTE Confirmed by (Test) NONE Discharge Core Measures - Per Current guidelines, there needs to be overlap - treatment for the first 5 days of Warfarin therapy. - If discharged on Warfarin prior to 5 days of - overlap therapy, the patient will need to be - assessed for post discharge needs including - *Post discharge parental anticoagulation - *Warfarin and/or parental anticoagulation education - *Follow up date to check INR post discharge At least 5 days overlap therapy as Inpatient No Meds if any: Prescribed or Continued at Discharge Note: Overlap Therapy is Warfarin and Anticoagulant Meds if any: NOT Prescribed or Continued at Discharge
[2017-11-01 08:54] LABS: ABSOLUTE BASOPHIL COUNT 0 /CUMM (0.0-0.2); ABSOLUTE EOSINOPHIL COUNT 0.2 /CUMM (0.0-0.7); ABSOLUTE GRANULOCYTE CT 5.4 /CUMM (1.4-6.5); ABSOLUTE LYMPH COUNT 0.7 /CUMM (1.2-3.4); ABSOLUTE MONOCYTE COUNT 0.5 /CUMM (0.10-0.60); BASOPHIL % 0.2 % (0.0-2.0); EOSINOPHIL % 3.5 % (0-5); GRANULOCYTE % 79.6 % (42.2-75.2); HEMATOCRIT 36.6 % (37-47); MEAN CORPUSCULAR HGB 30.1 PG (27.0-31.0); MEAN CORPUSCULAR HGB CONC 33.6 G/DL (33.0-37.0); MEAN CORPUSCULAR VOLUME 89.6 FL (81.0-99.0); MEAN PLATELET VOLUME 6.9 FL (7.4-10.4); RBC DISTRIBUTION WIDTH 14.2 % (11.5-14.5); RED BLOOD CELL CT 4.09 /CUMM (4.20-5.40); WHITE BLOOD CELL COUNT 6.8 /CUMM (4.8-10.8)
[2017-11-01 09:07] LABS: PLATELET COUNT 233 /CUMM (130-400)
[2017-11-01] MEDS ORDERED: SIMETHICONE80 M1 PO (10:29)
--- NOTE | 2017-11-01 10:32 | Discharge Summary ---
Visit Information Visit Dates Admission Date: 10/29/17 Discharge Date: 11/01/17 Hospital Course Course Attending Physician: Kaley Arce MD Primary Care Physician: Kathia VILLASENOR,[facility] Course: Ms. Frias is an 87-year-old female with past medical history of abdominal aortic aneurysms, hypertension, hyperlipidemia, and COPD on 3 L home oxygen followed by Dr. Leach who presented with abdominal pain. On presentation, vital signs were T 97.0, HR 94, RR 20, BP 190/50, saturating 90 % on 2 L nasal cannula. Laboratories are significant for white blood cell count 12.9, 21 bands, hemoglobin 11.9, MCV 89.7, chloride 93, carbon dioxide 37, BUN 35, creatinine 1.1, glucose 143, lactic acid 12.9, alkaline phosphatase 120. Chest x-ray was negative. CT abdomen/pelvis shows mildly distended fluid-filled small bowel loops, mildly thick-walled ascending colon, mild dilatation of large bowel potentially represent a colitis versus ischemic latest, free fluid in the pelvis, and severe atherosclerotic disease. She was admitted to general medicine and treated for the following problems: 1. Ischemic colitis 2. Leukocytosis with bandemia 3. Lactic acidosis 4. Normocytic anemia #Ischemic colitis: Patient presented with abdominal pain, vomiting, and diarrhea as well as CT imaging concerning for ischemic colitis. She has multiple risk factors for ischemic colitis. Lactic acidosis trended down. GI was consulted and followed the patient. Surgery consulted and did not believe there is any urgent need for surgical intervention. Initially antibiotics were started which were later discontinued per GI recommendations after she had no diarrhea. She has had no further episodes of diarrhea and is improved with fluid hydration. She should follow-up with gastroenterology, maintain a low fiber diet, and not take her lisinopril if her systolic blood pressure is less than 120. She should also stay hydrated. #Normocytic anemia: Patient reported that she had blood in her diarrhea. She remained hemodynamically stable without the need for transfusions. #Chronic medical problem: Her other home medications were continued Allergies: Coded Allergies: codeine (NAUSEA 07/13/16) oxycodone (From Percocet) (NAUSEA 07/13/16) propoxyphene (NAUSEA 07/13/16) Opioids - Morphine Analogues (Mild, NAUSEA 07/13/16) Disposition Summary Disposition Principal Diagnosis: 1. Ischemic colitis Additional Diagnosis: 2. Leukocytosis with bandemia 3. Lactic acidosis 4. Normocytic anemia Discharge Disposition: home or self care Discharge Instructions General Discharge Information Code Status: Full Code Patient's Diet: Heart healthy, low fiber diet Patient's Activity: As tolerated Follow-Up Instructions/Appts: Please take all medications as directed. Please follow-up with gastric urology and primary care. Please maintain a low fiber diet. Please dehydrated. Please take your blood pressure every morning and if the systolic blood pressure is less than 120, do not take lisinopril. Medications at Discharge Discharge Medications: Continue taking these medications: Atorvastatin Calcium (Lipitor) 40 MG TABLET 1 Tablet ORAL DAILY Comments: Last Taken:11/01/17 Time:0844 Diltiazem HCl (Diltiazem 24HR ER) 240 MG CAP.ER.24H 1 Capsule ORAL DAILY Comments: Last Taken:11/01/17 Time:0844 Aspirin (Ecotrin*) 81 MG TABLET.DR 1 Tablet ORAL DAILY Comments: Last Taken:11/01/17 Time:0844 Lisinopril (Prinivil) 10 MG TABLET 1 Tablet ORAL DAILY Comments: Last Taken: Time:0845 Multivitamin (Multi-Vitamin Daily) 1 EACH TABLET 1 Tablet ORAL DAILY Comments: Last Taken:11/01/17 Time:0844 Prednisone (Prednisone) 5 MG TABLET 1 Tablet ORAL Every other day Comments: Last Taken:11/01/17 Time:0943 Albuterol Sulfate (Proair Hfa) 90 MCG HFA.AER.AD 1-2 Puff Inhale through mouth Q4H as needed for RESP. Comments: not given Tiotropium [place] (Spiriva) 18 MCG CAP.W.DEV 1 Capsule Inhale through mouth DAILY Comments: Last Taken:11/01/17 Time:0844 Cholecalciferol (Vitamin D3) (Vitamin D) 1,000 UNIT TABLET 1 Tablet ORAL DAILY Comments: Last Taken:11/01/17 Time:0844 Azithromycin (Azithromycin) 250 MG TABLET 1 Tablet ORAL Every other day Qty = 15 Comments: Last Taken:11/01/17 Time:0844 Fluticasone Propionate (Flonase Allergy Relief) 50 MCG/ACTUATION SPRAY.SUSP 1 [place] Both sides of nose DAILY Comments: not given Fluticasone-Salmeterol (Advair 100-50 Diskus) 100 MCG-50 MCG/DOSE BLST.W.DEV 1 Puff Inhale through mouth TWICE DAILY Start taking the following new medications: Simethicone (Simethicone) 80 MG TAB.CHEW 80 Milligram ORAL EVERY 8 HOURS as needed for Gas Qty = 90 No Refills Comments: Last Taken:11/01/17 Time:1100 Copies To: Kathia VILLASENOR,Rickey Liu; Marina Olivera MD, MD, Leland J
[2017-11-01 14:50] VITALS: BP 138/78
== END 2017-11-01 15:07 | DRG 394 ==
LOC: ERH 11:52 → ERHI 15:51 → 2NB 15:51 → ENRESERV 17:33 → 2NB 18:43 → ENTRNSPT 18:44 → EDTRNSPT 18:47 → EDTRNSPTSTS 18:47 → 2NB 18:58 → CMPTRNSPT 19:07 → 2NB 11-01 09:26 → ENPENDDIS 11-01 10:29 → ENTRNSPT 11-01 14:44 → CMPTRNSPT 11-01 15:06 → 2NB 11-01 15:07
PROVIDERS: Internal Medicine; Physician Assistant Medical
DX: K55.9 Vascular disorder of intestine, unspecified (principal); E87.2 Acidosis; R64 Cachexia; Z68.1 Body mass index [BMI] 19.9 or less, adult; E78.5 Hyperlipidemia, unspecified; I71.4 Abdominal aortic aneurysm, without rupture; D72.829 Elevated white blood cell count, unspecified; I10 Essential (primary) hypertension; D64.9 Anemia, unspecified; Z87.891 Personal history of nicotine dependence; Z88.5 Allergy status to narcotic agent
CPT/HCPCS: 2NBP; 36592; 71045; 74177; 81001; 82436; 87040; 87045; 87086; 87328; 87329; 93005; 93010; 96361; 96374; J0131; J0456; J0696; J1644; J1650; J3490; J7042; J7512